=== PATIENT | female | born 1980 | race Caucasian/White ===

== ENCOUNTER 2023-05-25 15:13 | Emergency (ER) | payer BC, SELFPAY ==
[2023-05-25 15:16] VITALS: BP 127/85; PULSE 84; RESP 20; TEMP 36.7; O2SAT 99; BMI 32.2
--- NOTE | 2023-05-25 15:29 | ED.BACK1 ---
HPI - Back Pain/Injury General Chief Complaint: Back Pain/Injury Stated Complaint: BACK PAIN Time Seen by Provider: 05/25/23 15:14 Source: patient Mode of arrival: walk-in Limitations: no limitations History of Present Illness HPI Narrative: patient is a 42-year-old female presents to the emergency department for the evaluation of mid to low back pain for the last five days. She states she has a history of intermittent similar back pain over the last twenty years. She states five years ago she had injections in her spine, she saw a specialist at that time. She has had previous imaging of her back. She did not have any specific major trauma to cause chronic back pain. She states in the last five days she has just noticed an increase in pain from the mid to low back and paraspinal area of the right thoracic spine. She denies urinary symptoms, incontinence. She has no radicular pain to the legs or paresthesias. She states she had to call off work which prompted her to come to the emergency department. She drove herself to the Emergency Room. Related Data Previous Rx's Medication Instructions Recorded ketorolac 10 mg tablet 10 mg PO TID PRN pain #10 tabs 05/25/23 methocarbamol 750 mg tablet 750 mg PO TID PRN pain #20 tabs 05/25/23 Allergies Allergy/AdvReac Type Severity Reaction Status Date / Time codeine AdvReac Severe Nausea Verified 05/25/23 15:15 Review of Systems ROS Constitutional Denies: fever or chills Ears, nose, mouth, and throat Denies: neck pain Cardiovascular Denies: chest pain Respiratory Denies: shortness of breath Gastrointestinal Denies: abdominal pain, nausea or vomiting Genitourinary Denies: painful urination or urinary incontinence Musculoskeletal Reports: back pain; Denies: neck pain Integumentary/Breast Denies: rash Neurological Denies: numbness in extremities or weakness in extremities Exam Narrative Exam Narrative: Gen.: Awake, alert, in no distress Head: Normocephalic, atraumatic ENT: Moist mucous membranes Respiratory: No respiratory distress Extremities: Moves extremities equally, normal dorsiflexion and plantarflexion of the lower extremities. Normal hip flexion bilaterally. No decrease in sensation to the medial thighs Back: diffuse mild tenderness of the inferior thoracic and superior lumbar spine and paraspinal muscles to the right, no bony point tenderness or obvious deformity Psych: Normal mood and affect Neuro: No focal neuro deficit Skin: Warm, dry, intact Constitutional Vital Signs, click to edit/add: Last Vital Signs Temp 98.1 F 05/25/23 15:16 Pulse 84 05/25/23 15:16 Resp 20 05/25/23 15:16 BP 127/85 H 05/25/23 15:16 Pulse Ox 99 05/25/23 15:16 O2 Del Method Room Air 05/25/23 15:16 Course Vital Signs Vital signs: Vital Signs Temperature 98.1 F 05/25/23 15:16 Pulse Rate 84 05/25/23 15:16 Respiratory Rate 20 05/25/23 15:16 Blood Pressure 127/85 H 05/25/23 15:16 Pulse Oximetry 99 05/25/23 15:16 Oxygen Delivery Method Room Air 05/25/23 15:16 Temperature 98.1 F 05/25/23 15:16 Pulse Rate 84 05/25/23 15:16 Respiratory Rate 20 05/25/23 15:16 Blood Pressure 127/85 H 05/25/23 15:16 Pulse Oximetry 99 05/25/23 15:16 Oxygen Delivery Method Room Air 05/25/23 15:16 MDM - Back Pain/Injury MDM Narrative Medical decision making narrative: no indication for imaging as the patient has.had any specific mechanism of injury or trauma. She has no focal neuro deficits or radicular symptoms. She is treated for pain with Toradol in the Emergency Room as she drove to the emergency department herself. She is not concerned for . She is discharged home with a work note and NSAIDs, muscle relaxants. Rest, ice, gentle stretching. Follow-up PCP and return to the Emergency Room if symptoms change or worsen Medical Records Attestation: I reviewed the patient's medical records. Discharge Plan Discharge Chief Complaint: Back Pain/Injury Clinical Impression: Acute exacerbation of chronic low back pain Patient Disposition: Home, Self-Care Time of Disposition Decision: 15:25 Condition: Good Prescriptions / Home Meds: New ketorolac 10 mg tablet 10 mg PO TID PRN (Reason: pain) Qty: 10 0RF methocarbamol 750 mg tablet 750 mg PO TID PRN (Reason: pain) Qty: 20 0RF Instructions: Back Pain (ED) Stand Alone Forms: Portal Instructions Referrals: Physician,Non-Staff, [Primary Care Provider] - 1 week
[2023-05-25] MEDS: KETOROLAC TROMETHAMINE 60 MG/2 ML VIAL IM (15:30)
[2023-05-25 15:40] VITALS: BP 131/79; PULSE 72; RESP 16; O2SAT 96
== END 2023-05-25 15:41 | disposition home or self-care (01) ==
PROVIDERS: Emergency Provider Emergency Medicine
DX: M54.50 Low back pain, unspecified (principal); G89.29 Other chronic pain
CPT/HCPCS: 96372; 99284

== ENCOUNTER 2024-02-11 04:20 | Emergency (ER) | payer BC, SELFPAY ==
[2024-02-11 04:24] VITALS: BP 129/91; PULSE 95; RESP 18; TEMP 36.5; O2SAT 96; BMI 39.5
--- NOTE | 2024-02-11 04:37 | ED.GENADUL1 ---
HPI - General Adult General Chief complaint: Abdominal Pain Stated complaint: ABD PAIN vomiting Time Seen by Provider: 02/11/24 04:22 Source: patient Mode of arrival: walk-in Limitations: no limitations History of Present Illness HPI narrative: 43-year-old female presents for a 1 week history of nausea vomiting and diarrhea. She has had the symptoms for a week. She was at another hospital about a week ago and she had blood test done and was ultimately discharged home on Zofran. She ran out of the Zofran. No fever or hematemesis. Related Data Previous Rx's ?Medication ?Instructions ?Recorded ketorolac 10 mg tablet 10 mg PO TID PRN pain #10 tabs 05/25/23 methocarbamol 750 mg tablet 750 mg PO TID PRN pain #20 tabs 05/25/23 cephalexin 500 mg capsule 500 mg PO TID 7 days #21 caps 02/11/24 ondansetron 4 mg disintegrating 4 mg PO Q6H PRN nausea and 02/11/24 tablet vomiting #20 tabs Allergies Allergy/AdvReac Type Severity Reaction Status Date / Time codeine AdvReac Severe Nausea Verified 02/11/24 04:24 Review of Systems ROS Narrative A ten point review of systems is negative except as noted above. Exam Narrative Exam Narrative: Nurses note and vital signs reviewed and patient is not hypoxic. General: The patient appears well and in no apparent distress. Patient is resting comfortably on cart. Skin: Warm, dry, no pallor noted. There is no rash noted. Head: Normocephalic, atraumatic Eye: Normal conjunctiva, no drainage Ears, Nose, Mouth, and Throat: oral mucosa is moist. Nares patent. Cardiovascular: Regular Rate and Rhythm Respiratory: Patient is in no distress, no accessory muscle use, lungs are clear to auscultation, no wheezing, rales or rhonchi Back: non-tender GI: Soft and nondistended. Mild diffuse tenderness. Musculoskeletal: The patient has no evidence of calf tenderness, no pitting edema, symmetrical pulses noted bilaterally Neurological: A&O, normal speech Psychiatric: Cooperative Constitutional Vital Signs, click to edit/add: Last Vital Signs Temp 97.7 F 02/11/24 04:24 Pulse 95 H 02/11/24 04:24 Resp 18 02/11/24 04:24 BP 129/91 02/11/24 04:24 Pulse Ox 96 02/11/24 04:24 O2 Del Method Room Air 02/11/24 04:24 Course Vital Signs Vital signs: Vital Signs Temperature 97.7 F 02/11/24 04:24 Pulse Rate 95 H 02/11/24 04:24 Respiratory Rate 18 02/11/24 04:24 Blood Pressure 129/91 02/11/24 04:24 Pulse Oximetry 96 02/11/24 04:24 Oxygen Delivery Method Room Air 02/11/24 04:24 Temperature 97.7 F 02/11/24 04:24 Pulse Rate 95 H 02/11/24 04:24 Respiratory Rate 18 02/11/24 04:24 Blood Pressure 129/91 02/11/24 04:24 Pulse Oximetry 96 02/11/24 04:24 Oxygen Delivery Method Room Air 02/11/24 04:24 Medical Decision Making MDM Narrative Medical decision making narrative: Workup in the terms of her blood test is negative but urinalysis suggest possible UTI. She will be placed on Keflex and was prescribed Zofran. I do not have any clinical concern at this point of acute intra-abdominal process. Treatment diagnosis and follow-up were discussed with the patient. Differential Diagnosis Differential Diagnosis: Gastroenteritis, dehydration, UTI Lab Data Lab results reviewed: Yes I reviewed the patient's lab results Labs: Lab Results 02/11/24 02/11/24 Range/Units 04:29 05:10 WBC 5.7 (4.0-11.0) 10^3/uL RBC 4.63 (4.20-5.40) 10^6/uL Hgb 11.7 L (12.0-16.0) g/dL Hct 38.0 (36.0-48.0) % MCV 82.1 (81.0-99.0) fL MCH 25.3 L (26.7-34.0) pg MCHC 30.8 (29.9-35.2) g/dL RDW 17.8 H (11.0-15.0) % Plt Count 383 (150-450) 10^3/uL MPV 9.7 (9.5-13.5) fL Neut % (Auto) 43.0 (43.0-75.0) % Lymph % (Auto) 38.0 (20.5-60.0) % [place] % (Auto) 10.6 (1.7-12.0) % Eos % (Auto) 7.1 H (0.9-7.0) % Baso % (Auto) 0.9 (0.2-2.0) % Neut # (Auto) 2.4 (1.4-6.5) 10^3/uL Lymph # (Auto) 2.2 (1.2-3.8) 10^3/uL [place] # (Auto) 0.6 (0.3-0.8) 10^3/uL Eos # (Auto) 0.4 (0.0-0.7) 10^3/uL Baso # (Auto) 0.1 (0.0-0.1) 10^3/uL Abs Immat Gran (auto) 0.02 (0.00-0.03) 10^3/uL Imm/Tot Granulo (auto) 0.4 (0.0-0.5) % Sodium 139 (136-145) mmol/L Potassium 4.2 (3.5-5.1) mmol/L Chloride 106 (98-107) mmol/L Carbon Dioxide 26.3 (21.0-32.0) mmol/L Anion Gap 10.9 BUN 12.0 (7.0-18.0) mg/dL Creatinine 0.76 (0.55-1.02) mg/dL Est GFR ( Amer) >60 (>=60) Est GFR (Non-Af Amer) >60 (>=60) BUN/Creatinine Ratio 15.8 Glucose 100 (74-106) mg/dL Calcium 9.0 (8.5-10.1) mg/dL Total Bilirubin 1.0 (0.2-1.0) mg/dL Direct Bilirubin 0.2 (0.0-0.2) mg/dL AST 13 L (15-37) U/L ALT 30 (14-59) U/L Alkaline Phosphatase 52 (46-116) U/L Total Protein 7.1 (6.4-8.2) g/dL Albumin 3.7 (3.4-5.0) g/dL Globulin 3.4 g/dL Albumin/Globulin Ratio 1.1 Amylase 34 (25-115) U/L Lipase 34.0 (16.0-77.0) U/L Urine Color Lt. yellow (YELLOW) Urine Clarity Clear (CLEAR) Urine pH 6.0 (5.0-9.0) Ur Specific Emma 1.020 (1.005-1.025) Urine Protein Negative (NEG/TRACE) mg/dL Urine Glucose (UA) Negative (NEGATIVE) mg/dL Urine Ketones Negative (NEGATIVE) mg/dL Urine Occult Blood Moderate A (NEGATIVE) Urine Nitrite Negative (NEGATIVE) Urine Bilirubin Negative (NEGATIVE) Urine Urobilinogen 4.0 A (0.2-1.0) EU/dL Ur Leukocyte Esterase Moderate A (NEGATIVE) Urine RBC 2-5 A (0-2) #/HPF Urine WBC 5-10 A (NONE SEEN) #/HPF Ur Squamous Epith Cells Many A (NONE/RARE) #/LPF Urine Crystals None seen (None Seen) #/HPF Urine Bacteria Moderate A (NONE SEEN) #/HPF Urine Casts None seen (NONE SEEN) #/LPF Urine Mucus Small A (NONE SEEN) Ur Culture Indicated? Yes Discharge Plan Discharge Stand Alone Forms: Portal Instructions Chief Complaint: Abdominal Pain Clinical Impression: Nausea, vomiting, and diarrhea, Urinary tract infection Patient Disposition: Home, Self-Care Time of Disposition Decision: 05:39 Condition: Good Mode of Transportation: Private Vehicle Prescriptions / Home Meds: New cephalexin 500 mg capsule 500 mg PO TID 7 Days Qty: 21 0RF ondansetron 4 mg tablet,disintegrating 4 mg PO Q6H PRN (Reason: nausea and vomiting) Qty: 20 0RF No Action ketorolac 10 mg tablet 10 mg PO TID PRN (Reason: pain) Qty: 10 0RF methocarbamol 750 mg tablet 750 mg PO TID PRN (Reason: pain) Qty: 20 0RF Print Language: Divehi Instructions: Urinary Tract Infection in Women (ED), Acute Nausea and Vomiting (ED), Acute Diarrhea (ED) Referrals: Physician,Non-Staff, MD [Primary Care Provider] - 1 week
[2024-02-11 04:44] LABS: Basophils Absolute Auto 0.1 10^3/uL (0.0-0.1); Basophils Percent Auto 0.9 % (0.2-2.0); Eosinophils Absolute Auto 0.4 10^3/uL (0.0-0.7); Eosinophils Percent Auto 7.1 % (0.9-7.0); Hemoglobin 11.7 g/dL (12.0-16.0); Immature Granulocytes Abs Auto 0.02 10^3/uL (0.00-0.03); Immature Granulocytes Pct Auto 0.4 % (0.0-0.5); Lymphocytes Absolute Auto 2.2 10^3/uL (1.2-3.8); Mean Corpuscular HGB Conc 30.8 g/dL (29.9-35.2); Mean Corpuscular Hemoglobin 25.3 pg (26.7-34.0); Mean Corpuscular Volume 82.1 fL (81.0-99.0); Mean Platelet Volume 9.7 fL (9.5-13.5); Monocytes Absolute Auto 0.6 10^3/uL (0.3-0.8); Monocytes Percent Auto 10.6 % (1.7-12.0); Neutrophils Absolute Auto 2.4 10^3/uL (1.4-6.5); Platelet Count 383 10^3/uL (150-450); Red Blood Count 4.63 10^6/uL (4.20-5.40); Red Cell Distribution Width 17.8 % (11.0-15.0); White Blood Count 5.7 10^3/uL (4.0-11.0)
[2024-02-11] MEDS: ONDANSETRON PF 4 MG/2 ML VIAL IV (04:51)
[2024-02-11] MEDS: 0.9 % SODIUM CHLORIDE 1,000 ML 1000 ML IV (04:51)
[2024-02-11 04:54] LABS: Anion Gap 10.9; BUN Creatinine Ratio 15.8; Carbon Dioxide 26.3 mmol/L (21.0-32.0); Chloride 106 mmol/L (98-107); Estimated GFR (African America >60 (>=60); Estimated GFR (Non-African Ame >60 (>=60); Glucose 100 mg/dL (74-106); Potassium 4.2 mmol/L (3.5-5.1); Sodium 139 mmol/L (136-145)
[2024-02-11 05:00] LABS: Alanine Aminotransferase 30 U/L (14-59); Albumin Globulin Ratio 1.1; Albumin Level 3.7 g/dL (3.4-5.0); Alkaline Phosphatase 52 U/L (46-116); Amylase 34 U/L (25-115); Aspartate Amino Transferase 13 U/L (15-37); Bilirubin Direct 0.2 mg/dL (0.0-0.2); Globulin 3.4 g/dL; Total Protein 7.1 g/dL (6.4-8.2)
[2024-02-11 05:16] LABS: Bilirubin Urine NEGATIVE (NEGATIVE); Blood Urine MODERATE (NEGATIVE); Clarity Urine CLEAR (CLEAR); Color Urine LT. YELLOW (YELLOW); Glucose Urine UA NEGATIVE (NEGATIVE); Ketones Urine NEGATIVE (NEGATIVE); Leukocyte Esterase Urine MODERATE (NEGATIVE); Nitrite Urine NEGATIVE (NEGATIVE); Protein Urine NEGATIVE (NEG/TRACE)
[2024-02-11 05:25] LABS: Bacteria Urine MODERATE #/HPF (NONE SEEN); Cast Seen? NONE SEEN #/LPF (NONE SEEN); Crystals Seen? None Seen #/HPF (None Seen); Mucus Urine SMALL (NONE SEEN); Squamous Epithelial Cell Urine MANY #/LPF (NONE/RARE); Urine Culture Indicated YES
[2024-02-11 05:45] VITALS: BP 125/85; PULSE 80; RESP 18; O2SAT 97
== END 2024-02-11 05:45 | disposition home or self-care (01) ==
PROVIDERS: Emergency Provider Emergency Medicine
DX: R11.2 Nausea with vomiting, unspecified (principal); R19.7 Diarrhea, unspecified; N39.0 Urinary tract infection, site not specified
CPT/HCPCS: 36415; 80048; 80076; 81001; 82150; 83690; 85025; 87086; 96361; 96374; 99284

== ENCOUNTER 2024-11-17 22:48 | Emergency (ER) | payer BC, SELFPAY ==
[2024-11-17] VITALS (7 sets, daily range): BP systolic 112–145; BP diastolic 68–85; PULSE 811; TEMP 36.8; O2SAT 95–98; BMI 34.1
--- NOTE | 2024-11-17 23:15 | PC.NURSE ---
this patient complains of a cough x 2 months and right rib pain x 7 days. this patient has seen the urgent care x 2 and was given inhaler and cough medication for this cough, but not getting any better. this patient able to talk full sentences and no audible or visible distress. this patient voices no other complaints at this time
[2024-11-18] VITALS (8 sets, daily range): BP systolic 110–134; BP diastolic 58–95; PULSE 72–79; TEMP 37.1; O2SAT 95–99
--- NOTE | 2024-11-18 00:01 | ECG_ITS ---
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
--- NOTE | 2024-11-18 00:01 | CT_ITS ---
[address] [address] Patient Name: IVY TRACEY MRN: [id number] date: 1980 Sex: F Assigned Patient Location: ER Current Patient Location: Accession/Order Number: [id number] Exam Date: 11/18/2024 01:00 Report Date: 11/18/2024 01:29 At the request of: KIMBERLY ANDRADE Procedure: CT chest wo con EXAMINATION: CT chest wo con HISTORY: rib pain, chronic cough ; right rib pain for 7 days. COMPARISON: No relevant comparison available. TECHNIQUE: Axial, Coronal, and Sagittal images were created without the administration of IV contrast material. Dose reduction techniques were achieved by using automated exposure control and/or adjustment of mA and/or kV according to patient size and/or use of iterative reconstruction technique. FINDINGS: LUNGS: Trace amount of atelectasis within posterior lung bases. PLEURA: No mass, effusion, or pneumothorax. VASCULATURE: No abnormality. SHARIF: No mass or pathologic adenopathy. MEDIASTINUM: No mass or pathologic adenopathy. CARDIAC: No enlargement, pericardial thickening, or pericardial effusion. Coronary Artery calcifications: AORTA: No aneurysm or dissection. CHEST WALL: No mass or axillary adenopathy BONES: No bone lesion or fracture. LIMITED ABDOMEN: No suspicious findings. Limited images of the upper abdomen. OTHER: Negative. CT/CT chest wo con IMPRESSION: 1. Trace amount of atelectasis versus infiltrates within posterior lung bases; atelectasis is favored. 2. No appreciable rib abnormality or suspicious findings to account for patient's symptoms. Electronically authenticated by: ANISH FLETCHER Date: 11/18/2024 01:29
[2024-11-18] MEDS: KETOROLAC TROMETHAMINE 30 MG/ML VIAL IM (00:20)
[2024-11-18] MEDS: ORPHENADRINE 60 MG/ 2 ML VIAL IM (00:20)
--- NOTE | 2024-11-18 00:29 | PC.NURSE ---
this patient has been updated of her plan of care; 12 lead EKG, chest ct and medication. this patient voices no concerns and shows no signs of distress
--- NOTE | 2024-11-18 00:59 | ED_ITS ---
HPI HPI - General Adult General Chief complaint: Upper Respiratory Infection Stated complaint: DIFF BREATHING, COUGH, SIDE PAIN Time Seen by Provider: 11/17/24 23:33 Source: patient Mode of arrival: walk-in Limitations: no limitations History of Present Illness HPI narrative: 44-year-old female to the emergency department chief complaint of cough. Is been ongoing for almost 2 months. She has pain in her right sided ribs. The cough is productive. She denies any hemoptysis. She has been seen at the urgent care twice for this. She has had 2 chest x-rays that showed spots but no other findings. She continues to have cough and pain. She denies any fever, sweats, chills. She has completed a course of steroids, breathing treatments, antibiotics but has not had any relief. Related Data Home Medications ?Medication ?Instructions ?Recorded ?Confirmed albuterol sulfate 90 mcg/actuation inhalation 11/17/24 aerosol inhaler Previous Rx's ?Medication ?Instructions ?Recorded cyclobenzaprine 10 mg tablet 10 mg PO BID PRN muscle spasm #10 11/18/24 tabs levofloxacin 750 mg tablet 750 mg PO DAILY 5 days #5 tabs 11/18/24 naproxen 500 mg tablet 500 mg PO BID PRN pain #14 tabs 11/18/24 prednisone 20 mg tablet 60 mg (3 x 20 mg) PO DAILY 5 days 11/18/24 #15 tabs Allergies Allergy/AdvReac Type Severity Reaction Status Date / Time codeine AdvReac Severe Nausea Verified 11/17/24 23:02 Opioid HPI Opioid Management Most Recent Opioid Data: Last Pain Scale 4 11/18/24 01:09 11/18/24 Last ED Pain Assessment 11/18/24 01:09 Last MAR Pain Assessment 11/18/24 00:20 Review of Systems ROS Status of ROS 10 or more systems reviewed and unremark able except as noted in history and below [facility] Social History Little interest or pleasure in doing things: not at all Feeling down, depressed, or hopeless: not at all Exam Narrative Exam Narrative: VITALS: I have reviewed the triage vital signs. GENERAL: Well developed, well appearing adult in no acute distress. NEURO: Alert and oriented. Moves all extremities. Face is symmetric and expressive. EYES: PERRL. No scleral icterus or conjunctival injection. No discharge. HENT: Normocephalic, atraumatic. Hearing is grossly intact. Nares grossly patent and without discharge. Mucous membranes moist. NECK: No JVD. Patient moves neck without restriction. CARDIO: Rhythm regular. Normal rate. No murmur, rub, or gallop. Pulses equal bilaterally in the upper and lower extremity. No lower extremity edema. PULM: Trace wheezing. no conversational dyspnea. No splinting, stridor, or accessory muscle use. Right sided lateral rib tenderness. GI/: Abdomen is soft and non-tender. Normoactive bowel sounds. EXTREMITIES: Symmetric muscle bulk. No joint swelling. No clubbing, cyanosis, or deformity. SKIN: Warm and dry. Normal turgor. No rash or lesions appreciated. PSYCH: Mood, affect, and interaction is appropriate to the setting. Constitutional Vital Signs, click to edit/add: Last Vital Signs Temp 98.2 F 11/17/24 23:10 Pulse 75 11/18/24 01:07 Resp 18 11/18/24 01:07 BP 114/74 11/18/24 01:07 Pulse Ox 96 11/18/24 01:07 O2 Del Method Room Air 11/17/24 23:10 Course Vital Signs Vital signs: Vital Signs Pulse Oximetry 96 11/17/24 23:06 Temperature 98.2 F 11/17/24 23:10 Pulse Rate 75 11/18/24 01:07 Respiratory Rate 18 11/18/24 01:07 Blood Pressure 114/74 11/18/24 01:07 Pulse Oximetry 96 11/18/24 01:07 Oxygen Delivery Method Room Air 11/17/24 23:10 Medical Decision Making [facility] Narrative Medical decision making narrative: 44-year-old female to the emergency department with chief complaint of cough. Vital stable, the patient is afebrile. Cough has been refractory to usual therapy. Two abnormal chest x-rays in the outpatient setting. CT scan with bilateral lower infiltrate. No other acute findings. Will treat with Levaquin given her failed antibiotics. Higher dose prednisone. Naproxen and Flexeril for pain. Return precautions were discussed. She will follow-up with her PCP. All questions were answered. The patient was discharged home. Medical Records Medical records reviewed: Yes I reviewed the patient's medical records Lab Data Lab results reviewed: Yes I reviewed the patient's lab results Imaging Data CT scan - chest: Attestation: I have reviewed the pertinent imaging results. Radiologist's impression: ITS Impressions Chest CT 11/18/24 00:01 IMPRESSION: 1. Trace amount of atelectasis versus infiltrates within posterior lung bases; atelectasis is favored. 2. No appreciable rib abnormality or suspicious findings to account for patient's symptoms. Electronically authenticated by: ANISH FLETCHER Date: 11/18/2024 01:29 ECG Data Attestation: I personally reviewed and interpreted this ECG as follows: (Normal sinus rhythm at a rate of 70. No STEMI. Normal QTc.) Discharge Plan Discharge Chief Complaint: Upper Respiratory Infection Clinical Impression: Pneumonia, Pleurisy Patient Disposition: Home, Self-Care Time of Disposition Decision: 01:47 Condition: Good Mode of Transportation: Private Vehicle Prescriptions / Home Meds: New cyclobenzaprine 10 mg tablet 10 mg PO BID PRN (Reason: muscle spasm) Qty: 10 0RF prednisone 20 mg tablet 60 mg PO DAILY 5 Days Qty: 15 0RF levofloxacin 750 mg tablet 750 mg PO DAILY 5 Days Qty: 5 0RF naproxen 500 mg tablet 500 mg PO BID PRN (Reason: pain) Qty: 14 0RF No Action albuterol sulfate 90 mcg/actuation HFA aerosol inhaler INHALATION Print Language: [place]azight Instructions: Pleurisy (ED), Community Acquired Pneumonia (ED) Additional Instructions: Call the office of your primary care doctor to arrange for follow-up within the above-stated timeframe. Your ED visit was focused on your acute issue and does not replace primary care. You should review your labs, imaging, and diagnoses from this ED visit with your primary care physician. There may be non-emergent/ incidental findings that need further evaluation. You should review your vital signs including blood pressure with your PCP. If you were prescribed medications you should discuss possible side-effects and drug interactions with your pharmacist. Call 911 or go to the nearest Emergency Department if you develop any new or worsening symptoms. Seek immediate medical attention if you develop: worsening chest pain, new chest pain, nausea, vomiting, weakness, numbness, tingling, excessive sweating, shortness of breath, difficulty breathing, loss of motion in your arms or legs, or any new or worsening symptoms. Referrals: Physician,Non-Staff, [Primary Care Provider] - 1 week
--- NOTE | 2024-11-18 01:09 | PC.NURSE ---
this patient just back from ct dept, and this patient voices her pain is down to 4/10 from 8/10. this patient aware that waiting on ct results to come back. this patient voices no concerns and shows no sign of distress
--- NOTE | 2024-11-18 01:56 | PC.NURSE ---
i gave this patient verbal and paper discharge orders along with 4 e-scripts and this patient voices yes to understanding these. at tome of discharge this patient voices no concerns and shows no signs of distress
== END 2024-11-18 01:58 | disposition home or self-care (01) ==
PROVIDERS: Emergency Provider Student in an Organized Health Care Education/Training Program
DX: J18.9 Pneumonia, unspecified organism (principal); R09.1 Pleurisy
CPT/HCPCS: 71250; 93005; 96372; 99284; J1885; J2360

== ENCOUNTER 2024-12-08 07:40 | Emergency (ER) | payer BC, SELFPAY ==
[2024-12-08 07:46] VITALS: BP 138/100; PULSE 99; TEMP 37; O2SAT 98; BMI 25.5
--- NOTE | 2024-12-08 07:51 | ECG_ITS ---
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
--- OUTSIDE RECORDS SUMMARY | 2024-12-08 07:57 | XMS_ITS | CCD ---
Author Organization [facility] Care Team Providers Care Installers Mechanical Name Role Phone HOUSE, DR KANG Admitting Unavailable HOUSE, DR KANG Attending Unavailable HOUSE, DR KANG Primary Care Unavailable HOUSE, DR KANG Consulting Unavailable Elizabeth Andino Unavailable Mariely Hitchcock Unavailable Ricky PAN GREASER-INVESTMENT FUND MANAGER, Meagan A Primary Care Provi fransico GARRISON TEMPLE Attending Unavailable RICKY, MEAGAN A Referring Unavailable RICKY, MEAGAN A Primary Care Unavailable EDMOND SMITH Attending Unavailable GARRISON TEMPLE Referring Unavailable RICKY, MEAGAN A Primary Care Unavailable RICKY, MEAGAN A Attending Unavailable RICKY, MEAGAN A Primary Care Unavailable RICKY, MEAGAN A Referring Unavailable RICKY, MEAGAN A Primary Care Unavailable RICKY, MEAGAN A Primary Care Unavailable MELINDA CARBAJAL Attending Unavailable MELINDA CARBAJAL Attending Unavailable MELINDA CARBAJAL Referring Unavailable RICKY, MEAGAN A Primary Care Unavailable RICKY, MEAGAN A Primary Care Unavailable DARCY FORBES Attending Unavailable RICKY, MEAGAN A Primary Care Unavailable MAYA MARTELL Attending Unavailable RICKY, MEAGAN A Referring Unavailable RICKY, MEAGAN A Primary Care Unavailable RICKY, MEAGAN A Referring Unavailable RICKY, MEAGAN A Primary Care Unavailable BRENNEN BECKFORD Admitting Unavailable BRENNEN BECKFORD Attending Unavailable PEARL FAJARDO Referring Unavailable NO PCP, NO PCP Primary Care Unavailable BRENNEN BECKFORD Attending Unavailable BRENNEN BECKFORD Referring Unavailable NO PCP, NO PCP Primary Care Unavailable GARRISON TEMPLE Referring Unavailable RICKY, MEAGAN A Primary Care Unavailable GARRISON TEMPLE Referring Unavailable RICKY, MEAGAN A Primary Care Unavailable JAVY LOMELI Admitting Unavailable JAVY LOMELI Attending Unavailable JAVY LOMELI Referring Unavailable RICKY, MEAGAN A Primary Care Unavailable MIKAELA IBARRA Attending Unavailable RICKY, MEAGAN A Primary Care Unavailable JAVY LOMELI Attending Unavailable JAVY LOMELI Referring Unavailable RICKY, MEAGAN A Primary Care Unavailable REX CONTRERAS Attending Unavailable NO PCP, NO PCP Primary Care Unavailable BRENNEN BECKFORD E Attending Unavailable BECKFORD, BRENNEN E Referring Unavailable NO PCP, NO PCP Primary Care Unavailable BECKFORD, BRENNEN E Admitting Unavailable BECKFORD, BRENNEN E Attending Unavailable PEARL FAJARDO Referring Unavailable NO PCP, NO PCP Primary Care Unavailable DAVIS HAYES Attending Unavailable NO PCP, NO PCP Primary Care Unavailable RICKY, MEAGAN A Referring Unavailable RICKY, MEAGAN A Primary Care Unavailable RICKY, MEAGAN A Referring Unavailable RICKY, MEAGAN A Primary Care Unavailable RICKY, MEAGAN A Referring Unavailable RICKY, MEAGAN A Primary Care Unavailable DENAE ALBERTO Attending Unavailable BECKFORD, BRENNEN E Referring Unavailable RICKY, MEAGAN A Primary Care Unavailable NO FAMILY, PHYSICIAN Primary Care Provider Unava ilable Alea Hurd APRN Attending Provider NO FAMILY, PHYSICIAN Primary Care Unavailable Augustina Huang Attending Unavailable Augustina Huang Admitting Unavailable Alea Hurd Attending Unavailluz elena e Alea Hurd Admitting Unavailabl e NO FAMILY, PHYSICIAN Primary Care Unavailable Allergies Allergy Classification Reported Allergen(s) Allergy Type Date of Onset Reaction(s) Facility (1 source) Codeine Drug Allergy [address] [facility] Repository (2 sources) Codeine Drug Allergy stomach upset [employer] Other (8 sources) Acetaminophen / Codeine; Translations: [ACETAMINOPHEN-CO DEINE] Drug Allergy 7 [facility] (1 source) Codeine Drug Allergy 4 [facility] Repository Medications Current Medications Medication Drug Class(es) Dates Sig (Normalized) Sig (Original) acetaminophen 325 mg oral tablet (6 sources) take 3 tablets by mouth every six hours as needed for pain acetaminophen (TYLENOL) 325 mg tablet Indications: back pain Take 3 tablets (975 mg total) by mouth every 6 (six) hours as needed for pain Indications: backache. Active amoxicillin 875 mg oral tablet (1 source) Penicillin-class Antibacterial Start: 06-25-2022 take 1 tablet by mouth every twelve hours Amoxicillin 875 MG 1 tablet Orally every 12 hrs for 7 days Jun, Active Brompheniramine-Pseudo eph-Dm (Bromfed Dm) 2-30-10 mg/5 mL syrup (1 source) Start: 10-03-2024 take 1 mL by mouth every six hours as needed Brompheniramine-Ps eudoeph-Dm (Bromfed Dm) 2-30-10 mg/5 mL syrup Active 10 ML PO Every 6 hours as needed for cold symptoms 100 October 03, 2024 12:00am cephalexin 500 mg oral capsule (1 source) Cephalosporin Antibacterial Start: 02-11-2024 take 1 capsule by mouth three times daily CEPHalexin (KEFLEX) 500 mg capsule Take 1 capsule (500 mg total) by mouth 3 (three) times a day. 0 02/11/2024 Active cetirizine hydrochloride 10 mg oral tablet (2 sources) Histamine-1 Receptor Antagonist Start: 02-17-2024 take 1 tablet by mouth in the morning cetirizine (ZyrTEC) 10 mg tablet Take 1 tablet (10 mg total) by mouth in the morning. 30 tablet 2 02/17/2024 Active dextromethorphan hydrobromide 15 mg / guaiFENesin 400 mg / pseudoephedrine hydrochloride 60 mg oral tablet (1 source) alpha-Adrenergic Agonist, Uncompetitive V-tsyjki-R-aspart[place] te Receptor Antagonist, Sigma-1 Agonist Start: 01-14-2024 take 4 tablets by mouth every twenty-four hours as needed Pseudoephedrine-Dm -Guaifenesin (Capmist Dm) 60-15-400 mg tablet Active 1 TAB PO EVERY 4-6 HOURS as needed for cold symptoms January 14, 2024 12:00am do not exceed 4 doses per 24 hrs famotidine 20 mg oral tablet (3 sources) Histamine-2 Receptor Antagonist Start: 03-22-2024 famotidine (PEPCID) 20 mg tablet 03/22/2024 Active Start: 02-03-2024 End: 03-18-2024 take 1 tablet by mouth in the morning, then take 1 tablet by mouth at bedtime famotidine (PEPCID) 20 mg tablet Take 1 tablet (20 mg total) by mouth in the morning and 1 tablet (20 mg total) before bedtime. Do all this for 30 days. 60 tablet 1 02/17/2024 03/18/2024 Active fluticasone propionate 0.05 mg/actuat metered dose nasal spray (3 sources) Corticosteroid Start: 02-17-2024 take 2 spray(s) nasal route in the morning fluticasone propionate (FLONASE) 50 mcg/actuation nasal spray Administer 2 sprays into each nostril in the morning. 16 mL 02/17/2024 Active Start: 01-14-2024 take 1 spray(s) nasa l route once daily Fluticasone Propionate 50 mcg/actuation spray,suspension Active 2 SPRAY INTRANASAL Daily January 14, 2024 12:00am administer into each nostril 12 hr guaiFENesin 600 mg extended release oral tablet (1 source) Start: 02-17-2024 End: 02-24-2024 take 1 tablet by mouth once guaiFENesin (MUCINEX) 600 mg tablet extended release 12hr Take 1 tablet (600 mg total) by mouth every 12 (twelve) hours for 7 days. 14 tablet 0 02/17/2024 02/24/2024 Active ibuprofen 800 mg oral tablet (2 sources) Nonsteroidal Anti-inflammatory Drug Start: 01-19-2024 take 1 tablet by mouth every eight hours as needed for pain ibuprofen (MOTRIN) 800 mg tablet Take 1 tablet (800 mg total) by mouth every 8 (eight) hours as needed for pain. 30 tablet 0 01/19/2024 Active levonorgestrel 0.393655 mg/hr intrauterine system (6 sources) Progestin, Progestin-containi ng Intrauterine Device levonorgestreL (MIRENA) 21 mcg/24 hours (8 yrs) 52 mg IUD 1 each by intrauterine route once. Active naproxen 500 mg oral tablet (5 sources) Nonsteroidal Anti-inflammatory Drug Start: 08-12-2023 take 1 tablet by mouth in the morning, then take 1 tablet by mouth at mealtime naproxen (NAPROSYN) 500 mg tablet Take 1 tablet (500 mg total) by mouth in the morning and 1 tablet (500 mg total) in the evening. Take with meals. 60 tablet 1 08/12/2023 Active omeprazole 40 mg delayed release oral capsule (1 source) Proton Pump Inhibitor Start: 03-10-2024 take 1 capsule by mouth in the morning omeprazole (PriLOSEC) 40 mg capsule Indications: Black tarry stools , History of stomach ulcers Take 1 capsule (40 mg total) by mouth in the morning. 30 capsule 1 03/10/2024 Active ondansetron 4 mg disintegrating oral tablet (1 source) Serotonin-3 Receptor Antagonist Start: 02-03-2024 take 1 tablet by mouth every eight hours as needed for nausea ondansetron ODT (ZOFRAN ODT) 4 mg disintegrating tablet Dissolve 1 tablet (4 mg total) on tongue every 8 (eight) hours as needed for nausea for up to 10 doses. 10 tablet 0 02/03/2024 Active predniSONE 20 mg oral tablet (2 sources) Start: 10-03-2024 take 2 tablets by mouth once daily Prednisone 20 mg tablet Active 40 MG PO Daily 08 21October 03, 2024 12:00am Start: 01-11-2024 take 1 tablet by autumn twice daily Prednisone 20 mg tablet Active 20 MG PO Twice daily 08 21January 11, 2024 12:00am Completed/Discontinued Medications Medication Drug Class(es) Dates Sig (Normalized) Sig (Original) benzonatate 100 mg oral capsule (1 source) Non-narcotic Antitussive Start: 10-21-2023 End: 12-24-2023 take 1 capsule by mouth every eight hours benzonatate (TESSALON PERLES) 100 mg capsule Take 1 capsule (100 mg total) by mouth every 8 (eight) hours. 21 capsule 0 10/21/2023 12/24/2023 Discontinued dicyclomine hydrochloride 20 mg oral tablet (1 source) Anticholinergic Start: 02-03-2024 End: 02-17-2024 take 1 tablet by mouth twice daily as needed dicyclomine (BENTYL) 20 mg tablet Take 1 tablet (20 mg total) by mouth 2 (two) times a day as needed (abdominal). 20 tablet 0 02/03/2024 02/17/2024 Discontinued (Therapy completed) methocarbamol 750 mg oral tablet (1 source) Muscle Relaxant Start: 05-25-2023 End: 12-24-2023 take 1 tablet by mouth three times daily as needed methocarbamoL (ROBAXIN) 750 mg tablet Take 1 tablet (750 mg total) by mouth 3 (three) times a day as needed. 0 05/25/2023 12/24/2023 Discontinued multivitamin/iron/f olic acid (CENTRUM COMPLETE ORAL) (1 source) End: 12-24-2023 multivitamin/iron/ folic acid (CENTRUM COMPLETE ORAL) Take by mouth. 0 12/24/2023 Discontinued Triamcinolone (4 sources) Corticosteroid Start: 07-21-2018 KENALOG - 10 mg Jul, 40 mg Start: 05-21-2018 KENALOG - 10 m g May, 60 mg Problems Active Problems Problem Classification Problem Date Documented Da te Episodic/Chronic Abdominal pain (1 source) Left lower quadrant pain; Translations: [Left lower quadrant pain] 02-22-2024 Episodic Allergic reactions (6 sources) Allergic disorder; Translations: [Allergy, unspecified, initial encounter] 05-31-2021 Episodic Gastroduodenal ulcer (except hemorrhage) (2 sources) H/O: gastric ulcer; Translations: [Personal history of peptic ulcer disease] Onset: 02-17-2024 02-17-2024 Episodic Gastrointestinal hemorrhage (4 sources) Hematochezia; Translations: [Melena] Onset: 02-17-2024 02-17-2024 Episodic Nausea and vomiting (3 sources) Nausea; Translations: [Vomiting] Onset: 02-03-2024 Episodic Noninfectious gastroenteritis (1 source) Noninfective gastroenteritis and colitis, unspecified; Translations: [Noninfective gastroenteritis and colitis, unspecified] Onset: 02-03-2024 Episodic Nonmalignant breast conditions (2 sources) Mastodynia; Translations: [Mastodynia] Onset: 01-08-2024 Episodic Other complications of ; puerperium affecting management of mother (2 sources) Pain of breast; Translations: [Other disorders of breast associated with and the puerperium] 01-08-2024 Episodic Other complications of ; puerperium affecting management of mother (1 source) Other disorders of breast associated with and the puerperium; Translations: [Other disorders of breast associated with and the puerperium] Onset: 01-08-2024 Episodic Other connective tissue disease (1 source) Pain in lower limb Onset: 12-24-2023 Episodic Other lower respiratory disease (1 source) Shortness of breath; Translations: [Shortness of breath] Onset: 11-05-2024 Episodic Other lower respiratory disease (1 source) Wheezing; Translations: [Wheezing] Onset: 10-03-2024 Episodic Other non-traumatic joint disorders (1 source) Ankle pain Onset: 01-20-2024 Episodic Spondylosis; intervertebral disc disorders; other back problems (15 sources) Lumbosacral spondylosis without myelopathy; Translations: [Spondylosis without myelopathy or radiculopathy, lumbosacral region] Onset: 11-27-2017 10-29-2023 Chronic Spondylosis; intervertebral disc disorders; other back problems (20 sources) Disorder of sacrum; Translations: [Sacrococcygeal disorders, not elsewhere classified] Onset: 04-07-2017 04-07-2017 Episodic Sprains and strains (3 sources) Sprain of left ankle; Translations: [Sprain of unspecified ligament of left ankle, subsequent encounter] Onset: 01-19-2024 02-17-2024 Episodic Unclassified (3 sources) CONTACT W/AND (SUSP) EXPOS COVID-19; Translations: [CONTACT W/AND (SUSP) EXPOS COVID-19] Onset: 08-19-2021 Unclassified (1 source) Breast Problem Onset: 01-08-2024 Unclassified (1 source) Establish Care Onset: 12-24-2023 Unclassified (1 source) Esophagitis, unspecified without bleeding; Translations: [Esophagitis, unspecified without bleeding] Onset: 03-25-2024 Unclassified (2 sources) Ankle Injury Onset: 01-19-2024 Unclassified (1 source) Cough, unspecified; Translations: [Cough, unspecified] Onset: 11-05-2024 Past or Other Problems Problem Classification Problem Date Documented Date Episodic/Chronic Contraceptive and procreative management (6 sources) Intrauterine contraceptive device in situ; Translations: [Presence of (intrauterine) contraceptive device] Onset: 05-29-2023 05-29-2023 Episodic Mood disorders (6 sources) Mood disorders Onset: 12-24-2023 12-24-2023 Other connective tissue disease (7 sources) Pain of left thigh; Translations: [Pain in left thigh] Onset: 12-24-2023 12-24-2023 Episodic Other connective tissue disease (2 sources) Pain in left thigh; Translations: [Pain in left thigh] Onset: 12-24-2023 Episodic Other nervous system disorders (7 sources) Paresthesia of lower extremity; Translations: [Anesthesia of skin] Onset: 12-24-2023 12-24-2023 Episodic Other nervous system disorders (2 sources) Anesthesia of skin; Translations: [Anesthesia of skin] Onset: 12-24-2023 Episodic Other nervous system disorders (2 sources) Paresthesia of skin; Translations: [Paresthesia of skin] Onset: 12-24-2023 Episodic Other screening for suspected conditions (not mental disorders or infectious disease) (3 sources) Patient encounter status; Translations: [Encounter for screening for lipoid disorders] Onset: 12-24-2023 12-24-2023 Episodic Other upper respiratory infections (2 sources) Acute pharyngitis, unspecified; Translations: [Acute upper respiratory infection, unspecified] Onset: 06-19-2022 Resolved: 06-19-2022 Episodic Residual codes; unclassified (8 sources) Family history of breast cancer; Translations: [Family history of malignant neoplasm of breast] Onset: 04-30-2023 04-30-2023 Episodic Residual codes; unclassified (2 sources) Family history of malignant neoplasm of breast; Translations: [Family history of malignant neoplasm of breast] Onset: 04-30-2023 Episodic Unclassified (1 source) CONTACT W/AND (SUSP) EXPOS COVID-19; Translations: [CONTACT W/AND (SUSP) EXPOS COVID-19] Onset: 08-06-2021 Unclassified (6 sources) Onset: 04-30-2023 04-30-2023 Results Test Name Value Interpretation Reference Range Facility XR chest 2V*on 11-05-2024 XR chest 2V* [facility] Main [address] [address] XRay Report Signed Patient: Ivy Tracey MR#: [id number] : 1980 Acct:[id number] Age/Sex: 44 / F ADM Date: 11/05/24 Loc: XDUCLY Room: Type: [facility] CLI Attending Dr: Augustina Huang PAN GREASER Copies to: Augustina Huang APRN Ordering Provider: Augustina Huang APRN Date of Service: 11/05/24 XR/XR chest 2V*: R05.9 - Cough, unspecified Plain film chest 2 view HISTORY: Nonproductive cough COMPARISON: 10/03/2024 FINDINGS: SUPPORT DEVICES: None POSTSURGICAL CHANGES: None HEART: Within normal limits PULMONARY SHARIF: Within normal limits MEDIASTINUM: Unremarkable LUNGS AND PLEURA: No acute lung process, pleural effusion or pneumothorax identified. BONY STRUCTURES: Intact ADDITIONAL FINDINGS None XR/XR chest 2V* IMPRESSION: No acute process. Impression dictated by: Koby Domingo M.D.11/05/2024 10:13 AM Dictation Location: [place] [address] Transcribed By: [facility] 11/05/24 1013 Dictated By: Koby Domingo DO 11/05/24 1012 Signed By: 11/05/24 1013 Normal [facility] No Panel InformationOrdered By: Alea Hurd on 10-03-2024 Quick Strep (POC) [facility] X-ray reportOrdered By: Lilia Sherman on 10-03-2024 Study report [facility] [place] [address] XRay Report Signed Patient: Ivy Tracey MR#: [id number] : 1980 Acct:[id number] Age/Sex: 44 / F ADM Date: 4 Loc: XDUCLY Room: Type: [facility] CLI Attending Dr: Alea Hurd PAN GREASER Copies to: Alea Hurd APRN~ Ordering Provider: Alea Hurd APRN Date of Service: 10/03/24 XR/XR chest 2V*: R06.2 - Wheezing PA AND LATERAL CHEST: CLINICAL HISTORY: Nonproductive cough, wheezing and shortness of breath, greaterat night COMPARISON: None There is shallow inspiration. There is minimal basilar scarring or atelectasis on the left. There is no additional consolidation, effusion or pneumothorax. The cardiac, hilar and mediastinal silhouettes are within normal limits. Thereis no vascular congestion. The visualized bony thorax is intact. Tiny endplate spurs are present. XR/XR chest 2V* IMPRESSION: NO ACUTE CARDIOPULMONARY ABNORMALITY. Impression dictated by: Brea Sherman M.D.10/03/2024 2:26 PM Dictation Location: [facility] Transcribed By: KIM 10/03/24 1426 Dictated By: Brea Sherman MD 10/03/24 1402 Signed By: 10/03/24 142 [facility] Work Phone: XR chest 2V*on 10-03-2024 XR chest 2V* [facility] Main [place] [address] [place] [address] XRay Report Signed Patient: Ivy Tracey MR#: [id number] : 1980 Acct:[id number] Age/Sex: 44 / F ADM Date: 10/03/24 Loc: XDUCLY Room: Type: [facility] Attending Dr: lAea Hurd PAN GREASER Copies to: Alea Hurd APRN Ordering Provider: Alea Hurd APRN Date of Service: 10/03/24 XR/XR chest 2V*: R06.2 - Wheezing PA AND LATERAL CHEST: CLINICAL HISTORY: Nonproductive cough, wheezing and shortness of breath, greater at night COMPARISON: None There is shallow inspiration. There is minimal basilar scarring or atelectasis on the left. There is no additional consolidation, effusion or pneumothorax. The cardiac, hilar and mediastinal silhouettes are within normal limits. There is no vascular congestion. The visualized bony thorax is intact. Tiny endplate spurs are present. XR/XR chest 2V* IMPRESSION: NO ACUTE CARDIOPULMONARY ABNORMALITY. Impression dictated by: Brea Sherman M.D.10/03/2024 2:26 PM Dictation Location: [facility] Transcribed By: KIM 10/03/24 1426 Dictated By: Brea Sherman MD 10/03/24 1402 Signed By: 10/03/24 1426 Normal [facility] H PYLORI SCREENon 03-25-2024 H. pylori Org specific cx Ql (Delmy fld) Negative Normal NEG [facility] Comment on above: Performed By: #### C BCA, THYR, CMP, 54967-1, 2132-07 #### [facility] ([id number]) [address] [place] [address], [address] [place] [address] Surgical Pathologyon 024 Surgical Pathology Normal [facility] Comment on above: Result Comment: [facility] [employer] [facility] [address] [place] [address] Surgical Pathology Consultation Patient Name:IVY TRACEY:1980 (Age: 43)Gender:FTaken:4Reported:03/31/2024hysician(s):Javy Lomeli D.O. ([phone])Copy To: Rec. #:[id number]: #[id number] Final Pathologic Diagnosis 1. Gastric antrum, biopsy: Mild inactive gastritis with features suggestive of chemical gastritis. No mucosal ulcer, metaplasia or dysplasia identified. No Helicobacter pylori organisms seen on H&E stain. 2. Distal esophagus, biopsy: Active esophagitis with intraepithelial eosinophils (12 intraepithelial eosinophils per high-power field). No metaplasia or dysplasia identified. Report Electronically Signed Out nxk/03/31/2024Jama Painting MD Interpretation performed at [facility], [address] [place] [address], License number: [id number]. Clinical History Black stools, Part 1; Pre-pyloric. Gross Description 1. Received in formalin labeled, KYUNG, antrum are 3 zamarripa delicate soft tissue fragments, 0.1 to 0.3 cm in greatest dimension. The specimens are filtered and submitted in a single cassette. (1, ns, [id number], m7) TB 2. Received in formalin labeled, KYUNG, distal esophageal are 3 zamarripa delicate soft tissue fragments, 0.1-0.4 cm in greatest dimension. The specimens are filtered and submitted in a single cassette. (1, ns, [id number], m7) TB tgb/03/25/2024NSK Specimen(s) Received 1: Antrum 2: Distal esophageal biopsy Fee Codes(s): 1; 61756 2; 18857 MAMM DIAGNOSTIC BILATERAL W CADon 02-10-2024 MAMM DIAGNOSTIC BILATERAL W CAD MAMM DIAGNOSTIC BILATERAL W CAD EXAM: MAMM DIAGNOSTIC BILATERAL W CAD, US BREAST BILAT - LIMITED, 02/10/2024 12:11 PM CLINICAL INDICATIONS: Breast pain; Family history of breast cancer, COMPARISON: Mammogram 04/30/2023 TECHNIQUE: Bilateral digital tomosynthesis MLO and CC views of the breasts were obtained, with creation of synthetic 2D views. Computer aided detection was utilized. Targeted ultrasound in the area of pain, upper outer quadrants of both breasts performed. FINDINGS: There are scattered areas of fibroglandular density. In the area of pain, no mammographic or sonographic abnormality seen. There are no suspicious masses, calcifications, or areas of architectural distortions. IMPRESSION: No mammographic or targeted sonographic evidence of malignancy. BI-RADS: BI-RADS 1 - Negative Recommendation: Routine screening mammogram in 1 year Patient was given the results before leaving the department. 5 Finalized by Juan Carlos Carpenter MD on 02/10/2024 12:50 PM 1 b MAMM 1 YR Normal [facility] US BREAST BILAT - LIMITEDon 02-10-2024 US BREAST BILAT - LIMITED US BREAST BILAT - LIMITED EXAM: MAMM DIAGNOSTIC BILATERAL W CAD, US BREAST BILAT - LIMITED, 02/10/2024 12:11 PM CLINICAL INDICATIONS: Breast pain; Family history of breast cancer, COMPARISON: Mammogram 04/30/2023 TECHNIQUE: Bilateral digital tomosynthesis MLO and CC views of the breasts were obtained, with creation of synthetic 2D views. Computer aided detection was utilized. Targeted ultrasound in the area of pain, upper outer quadrants of both breasts performed. FINDINGS: There are scattered areas of fibroglandular density. In the area of pain, no mammographic or sonographic abnormality seen. There are no suspicious masses, calcifications, or areas of architectural distortions. IMPRESSION: No mammographic or targeted sonographic evidence of malignancy. BI-RADS: BI-RADS 1 - Negative Recommendation: Routine screening mammogram in 1 year Patient was given the results before leaving the department. 5 Finalized by Juan Carlos Carpenter MD on 02/10/2024 12:50 PM 1 b MAMM 1 YR Normal [facility] BASIC METABOLIC PANLon 02-02 Anion gap [Moles/Vol] 7 mmol/L Normal 5-15 [facility] Comment on above: Performed By: #### C BCA, THYR, CMP, 79009-1, 2132-07 #### [facility] ([id number]) [address], [address] [place] [address] Calcium [Mass/Vol] 8.3 mg/dL Low 8.5-10.5 [facility] Comment on above: Performed By: #### C BCA, THYR, CMP, , 2132-07 #### [facility] ([id number]) [address], [address] [place] [address] Chloride [Moles/Vol] 107 mmol/L Normal 98-109 [facility] Comment on above: Performed By: #### C BCA, THYR, CMP, , 2132-07 #### [facility] ([id number]) [address], [address] [place] [address] CO2 [Moles/Vol] 23 mmol/L Normal 22-32 [facility] Comment on above: Performed By: #### C BCA, THYR, CMP, 57520-9, 2132-07 #### [facility] ([id number]) [address], [address] [place] [address] Creatinine [Mass/Vol] 0.61 mg/dL Normal 0.40-1.00 [facility] Comment on above: Result Comment: METH OD TRACEABLE TO IDMS STANDARD Performed By: #### C BCA, THYR, CMP, , 2132-07 #### [facility] ([id number]) [address], [address] [place] [address] eGFR (CKD-EPI) NON-RACE DEPENDENT >90 Normal >59 [facility] Comment on above: Result Comment: Reported eGFR is based on the CKD-EPI 2020 equation that does not use a race coefficient. Performed By: #### C BCA, THYR, CMP, , 2132-07 #### [facility] ([id number]) [address], [address] [place] [address] Glucose [Mass/Vol] 115 mg/dL High 65-99 [facility] Comment on above: Performed By: #### C BCA, THYR, CMP, , 2132-07 #### [facility] ([id number]) [address] [address] [place] [address] Potassium [Moles/Vol] 4.1 mmol/L Normal 3.5-5.0 [facility] Comment on above: Performed By: #### C BCA, THYR, CMP, , 2132-07 #### [facility] ([id number]) [address], [address] [place] [address] Sodium [Moles/Vol] 137 mmol/L Normal 134-146 [facility] Comment on above: Performed By: #### C BCA, THYR, CMP, , 2132-07 #### [facility] ([id number]) [address] [address] [place] [address] Urea nitrogen [Mass/Vol] 21 mg/dL Normal 5-23 [facility] Comment on above: Performed By: #### C BCA, THYR, CMP, , 2132-07 #### [facility] ([id number]) [address], [address] [place] [address] CBC AND AUTO DIFFon 03-19-20 24 ABSOLUTE BASOPHIL 0.0 X10E9/L Normal 0.0-0.2 [facility] Comment on above: Performed By: #### C BCA, PINR, 30073-0, BMP, 3040-3, 74029-3, LIVR, 34220-1 #### [facility] ([id number]) [address] [place] [address] ABSOLUTE NEUTROPHIL 7.9 X10E9/L High 1.5-6.6 [facility] Comment on above: Performed By: #### C BCA, PINR, 52341-5, BMP, 3040-3, 55128-6, LIVR, 01057-1 #### [facility] ([id number]) [address] [place] [address] Basophils/100 WBC (Bld) 0.4 % Normal [facility] Comment on above: Performed By: #### C BCA, PINR, 71203-5, BMP, 3040-3, 42652-7, LIVR, 69210-7 #### [facility] ([id number]) [address] [place] [address] Eosinophils (Bld) [#/Vol] 0.2 10*3/uL Normal 0.0-0.4 [facility] Comment on above: Performed By: #### C BCA, PINR, 38380-6, BMP, 3040-3, 85618-5, LIVR, 70472-7 #### [facility] ([id number]) [address] [place] [address] Eosinophils/100 WBC (Bld) 2.4 % Normal [facility] Comment on above: Performed By: #### C BCA, PINR, 07821-6, BMP, 3040-3, 29011-4, LIVR, 42312-2 #### [facility] ([id number]) [address] [place] [address] Erythrocyte distribution width (RBC) [Ratio] 20.0 % High 11.5-15.0 [facility] Comment on above: Performed By: #### C BCA, PINR, 83342-7, BMP, 3040-3, 43950-0, LIVR, 08398-0 #### [facility] ([id number]) [address] [place] [address] Hematocrit (Bld) [Volume fraction] 35.6 % Normal 35-47 [facility] Comment on above: Performed By: #### C BCA, PINR, 12052-4, BMP, 3040-3, 57763-4, LIVR, 50151-9 #### [facility] ([id number]) [address] [place] [address] Hemoglobin (Bld) [Mass/Vol] 11.8 g/dL Normal 11.7-15.5 [facility] Comment on above: Performed By: #### C BCA, PINR, 85458-4, BMP, 3040-3, 97390-0, LIVR, 94119-2 #### [facility] ([id number]) [address] [place] [address] Lymphocytes (Bld) [#/Vol] 0.4 10*3/uL Low 1.0-3.5 [facility] Comment on above: Performed By: #### C BCA, PINR, 94654-5, BMP, 3040-3, 12387-1, LIVR, 97348-1 #### [facility] ([id number]) [address] [place] [address] Lymphocytes/100 WBC (Bld) 4.4 % Normal [facility] Comment on above: Performed By: #### C BCA, PINR, 41852-5, BMP, 3040-3, 63098-4, LIVR, 71539-4 #### [facility] ([id number]) [address] [place] [address] MCH (RBC) [Entitic mass] 25.9 pg Low 27-34 [facility] Comment on above: Performed By: #### C BCA, PINR, 12636-6, BMP, 3040-3, 89889-9, LIVR, 30940-2 #### [facility] ([id number]) [address] [place] [address] MCHC (RBC) [Mass/Vol] 33.1 g/dL Normal 32-36 [facility] Comment on above: Performed By: #### C BCA, PINR, 02597-0, BMP, 3040-3, 45404-8, LIVR, 45791-5 #### [facility] ([id number]) [address] [place] [address] MCV (RBC) [Entitic vol] 78 fL Low 80-100 [facility] Comment on above: Performed By: #### C BCA, PINR, 15169-8, BMP, 3040-3, 55000-3, LIVR, 59028-7 #### [facility] ([id number]) [address] [place] [address] Monocytes (Bld) [#/Vol] 0.4 10*3/uL Normal 0-0.9 [facility] Comment on above: Performed By: #### C BCA, PINR, 97165-9, BMP, 3040-3, 83545-6, LIVR, 42230-6 #### [facility] ([id number]) [address] [place] [address] Monocytes/100 WBC (Bld) 4.9 % Normal [facility] Comment on above: Performed By: #### C BCA, PINR, 75747-3, BMP, 3040-3, 08202-2, LIVR, 63260-2 #### [facility] ([id number]) [address] [place] [address] Neutrophils/100 WBC (Bld) 87.9 % Normal [facility] Comment on above: Performed By: #### C BCA, PINR, 40383-2, BMP, 3040-3, 08108-6, LIVR, 63418-9 #### [facility] ([id number]) [address] [place] [address] Platelet mean volume (Bld) [Entitic vol] 7.8 fL Normal 7-12 [facility] Comment on above: Performed By: #### C BCA, PINR, 25765-6, BMP, 3040-3, 73465-7, LIVR, 29095-3 #### [facility] ([id number]) [address] [place] [address] Platelets (Bld) [#/Vol] 296 10*3/uL Normal 150-450 [facility] Comment on above: Performed By: #### C BCA, PINR, 43430-1, BMP, 3040-3, 43562-9, LIVR, 12468-4 #### [facility] ([id number]) [address] [place] [address] RBC COUNT 4.54 X10E12/L Normal 3.80-5.20 [facility] Comment on above: Performed By: #### C BCA, PINR, 74061-0, BMP, 3040-3, 60640-7, LIVR, 71332-9 #### [facility] ([id number]) [address] [place] [address] WBC (Bld) [#/Vol] 9.0 10*3/uL Normal 4.0-11.0 [facility] Comment on above: Performed By: #### C BCA, PINR, 13647-7, BMP, 3040-3, 33295-3, LIVR, 84167-9 #### [facility] ([id number]) [address] [place] [address] LIPASEon 02-03-2024 Lipase [Catalytic activity/Vol] 39 U/L Normal 17-40 [facility] Comment on above: Performed By: #### C BCA, THYR, CMP, , 2132-07 #### [facility] ([id number]) [address], [address] [place] [address] LIVER PANELon 02-03-2024 Albumin [Mass/Vol] 3.9 g/dL Normal 3.2-5.3 [facility] Comment on above: Performed By: #### C BCA, THYR, CMP, , 2132-07 #### [facility] ([id number]) [address], [address] [place] [address] ALP [Catalytic activity/Vol] 45 U/L Normal 39-130 [facility] Comment on above: Performed By: #### C BCA, THYR, CMP, , 2132-07 #### [facility] ([id number]) [address], [address] [place] [address] ALT [Catalytic activity/Vol] 28 U/L Normal 0-31 [facility] Comment on above: Performed By: #### C BCA, THYR, CMP, , 2132-07 #### [facility] ([id number]) [address], [address] [place] [address] AST [Catalytic activity/Vol] 24 U/L Normal 0-41 [facility] Comment on above: Performed By: #### C BCA, THYR, CMP, , 2132-07 #### [facility] ([id number]) [address], [address] [place] [address] Bilirubin [Mass/Vol] 1.6 mg/dL High 0.3-1.2 [facility] Comment on above: Performed By: #### C BCA, THYR, CMP, , 2132-07 #### [facility] ([id number]) [address], [address] [place] [address] Bilirubin.direct [Mass/Vol] 0.2 mg/dL Normal 0.0-0.4 [facility] Comment on above: Performed By: #### C BCA, THYR, CMP, , 2132-07 #### [facility] ([id number]) [address], [address] [place] [address] Protein [Mass/Vol] 7.2 g/dL Normal 6.0-8.0 [facility] Comment on above: Performed By: #### C BCA, THYR, CMP, , 2132-07 #### [facility] ([id number]) [address], [address] [place] [address] Lactate (P kannan) [Moles/Vol]o n 02-03-2024 LACTATE W/REFLEX 1.2 mmol/L Normal 0.4-2.0 [facility] Comment on above: Result Comment: Result did not trigger repeat Lactate, re-order if needed. Performed By: #### C BCA, THYR, CMP, , 2132-07 #### [facility] ([id number]) [address], [address] [place] [address] MAGNESIUMon 02-03-2024 Magnesium [Mass/Vol] 2.1 mg/dL Normal 1.8-2.6 [facility] Comment on above: Performed By: #### C BCA, THYR, CMP, , 2132-07 #### [facility] ([id number]) [address] [address] [place] [address] PROTIME AND INRon 02-03-2024 INR Coag (PPP) [Relative time] 1.1 {INR} Normal 0.8-1.1 [facility] Comment on above: Performed By: #### C BCA, PINR, 26431-5, BMP, 3040-3, 46657-3, LIVR, 36882-0 #### [facility] ([id number]) [address] [place] [address] PT Coag (PPP) [Time] 12.9 s Normal 9.8-13.2 [facility] Comment on above: Result Comment: NEW REFERENCE RANGE Performed By: #### C BCA, PINR, 18488-8, BMP, 3040-3, 14921-3, LIVR, 44326-1 #### [facility] ([id number]) [address] [place] [address] SARS/FLU A+B/RSV by NAAT/Mol ecularon 02-03-2024 SARS/FLU A+B/RSV by NAAT/Molecular FLU A PCR Negative (qualifier value) FLU B PCR Negative (qualifier value) RSV by PCR Negative (qualifier value) SARS CoV 2 Not detected (qualifier value) NOTE The Xpert Xpress SARS-CoV-2/Flu/RSV Plus test is a rapid, multiplexed real-time RT-PCR test intended for the simultaneous qualitative detection and differentiation of SARS-CoV-2, influenza A, influenza B and respiratory syncytial virus (RSV) viral RNA from individuals suspected of respiratory viral infection consistent with COVID-19 by their healthcare provider. This test has not been validated in asymptomatic patients. The Xpert Xpress SARS-CoV-2 test is intended for use by qualified and trained operators who are performing tests using either [employer] or [employer] systems and is limited to laboratories that meet the CLIA requirements to perform high and moderate complexity tests. The Xpert Xpress SARS-CoV-2/Flu/RSV Plus is only for use under the Food and Drug Administration's Emergency Use Authorization. Results are for the simultaneous detection and differentiation of SARS-CoV-2, influenza A, influenza B and RSV nucleic acids in clinical specimens. SARS-CoV-2, influenza A, influenza B and RSV RNA identified by this test are generally detectable in upper respiratory samples during the acute phase of infection. Positive results are indicative of the presence of the identified virus, but do not rule out bacterial infection or co-infection with other pathogens not detected by this test. Clinical correlation with patient history and other diagnostic information is necessary to determine patient infection status. The agent detected may not be the definite cause of disease. Negative results do not preclude SARS-CoV-2, influenza A, influenza B and RSV infection and should not be used as the sole basis for treatment or other patient management decisions. Negative results must be combined with clinical observations, patient history and epidemiological information. An Invalid result may occur with specimen-associated inhibition unable to be resolved with specimen repeat. Fact Sheet for Healthcare Providers: https://www.fda.gov /media/848829/downl oad Fact Sheet for Patients: https://www.fda.gov /media/542202/downl oad Normal [facility] Comment on above: Performed By: #### C BCA, THYR, CMP, 03645-1, 2132-07 #### [facility] ([id number]) [address], [address] [place] [address] aPTT Coag (PPP) [Time]on aPTT Coag (Bld) [Time] 29 s Normal 26-37 [facility] Comment on above: Result Comment: NEW REFERENCE RANGE Performed By: #### C BCA, THYR, CMP, 68661-3, 2132-07 #### [facility] ([id number]) [address], [address] [place] [address] XR ANKLE LT MIN 3 VWSon 030 XR ANKLE LT MIN 3 VWS XR ANKLE LT MIN 3 VWS XR ANKLE LT MIN 3 VWS HISTORY: Ankle pain, fifth metatarsal pain COMPARISON: None FINDINGS: AP, lateral, oblique views obtained. No fracture or dislocation. Ankle mortise is intact. Small ankle joint effusion. Lateral malleolar soft tissue swelling. No significant degenerative changes. IMPRESSION: * No acute osseous abnormality. * Soft tissue swelling adjacent to the lateral malleolus. * Small joint effusion. Approved by Resident: Jose A Griffiths DO on 01/19/2024 6:04 AM I, Baldemar Saavedra have personally reviewed the image(s) and agree with and/or edited the report 3 Finalized by Baldemar Saavedra on 01/19/2024 6:13 AM Normal [facility] XR FEMUR LT 2+ VIEWSon 12-27 XR FEMUR LT 2+ VIEWS XR FEMUR LT 2+ VIEWS XR FEMUR LT 2+ VIEWS: 12/26/2023 11:22 AM Clinical: Left thigh pain and numbness EXAM; LEFT FEMUR RADIOGRAPHS Comparison: none views:2 Findings: There is no acute fracture or destructive lesion. Unremarkable visualized joint spaces. Impression: * No acute findings. 8 Finalized by Juan Carlos Carpenter MD on 12/27/2023 11:54 AM Normal [facility] CBC AND AUTO DIFFon 12-26-19 ABSOLUTE BASOPHIL 0.0 X10E9/L Normal 0.0-0.2 [facility] Comment on above: Performed By: #### C BCA, THYR, CMP, , 2132-07 #### [facility] ([id number]) [address], [address] [place] [address] ABSOLUTE NEUTROPHIL 3.3 X10E9/L Normal 1.5-6.6 [facility] Comment on above: Performed By: #### C BCA, THYR, CMP, , 2132-07 #### [facility] ([id number]) [address], [address] [place] [address] Basophils/100 WBC (Bld) 0.8 % Normal [facility] Comment on above: Performed By: #### C BCA, THYR, CMP, , 2132-07 #### [facility] ([id number]) [address], [address] [place] [address] Eosinophils (Bld) [#/Vol] 0.3 10*3/uL Normal 0.0-0.4 [facility] Comment on above: Performed By: #### C BCA, THYR, CMP, , 2132-07 #### [facility] ([id number]) [address], [address] [place] [address] Eosinophils/100 WBC (Bld) 5.1 % Normal [facility] Comment on above: Performed By: #### C BCA, THYR, CMP, , 2132-07 #### [facility] ([id number]) [address], [address] [place] [address] Erythrocyte distribution width (RBC) [Ratio] 21.1 % High 11.5-15.0 [facility] Comment on above: Performed By: #### C BCA, THYR, CMP, , 2132-07 #### [facility] ([id number]) [address], [address] [place] [address] Hematocrit (Bld) [Volume fraction] 33.4 % Low 35-47 [facility] Comment on above: Performed By: #### C BCA, THYR, CMP, , 2132-07 #### [facility] ([id number]) [address], [address] [place] [address] Hemoglobin (Bld) [Mass/Vol] 10.8 g/dL Low 11.7-15.5 [facility] Comment on above: Performed By: #### C BCA, THYR, CMP, , 2132-07 #### [facility] ([id number]) [address] [place] [address] Lymphocytes (Bld) [#/Vol] 1.9 10*3/uL Normal 1.0-3.5 [facility] Comment on above: Performed By: #### C BCA, THYR, CMP, , 2132-07 #### [facility] ([id number]) [address] [place] [address] Lymphocytes/100 WBC (Bld) 29.9 % Normal [facility] Comment on above: Performed By: #### C BCA, THYR, CMP, , 2132-07 #### [facility] ([id number]) [address] [place] [address] MCH (RBC) [Entitic mass] 24.3 pg Low 27-34 [facility] Comment on above: Performed By: #### C BCA, THYR, CMP, , 2132-07 #### [facility] ([id number]) [address], [address] [place] [address] MCHC (RBC) [Mass/Vol] 32.2 g/dL Normal 32-36 [facility] Comment on above: Performed By: #### C BCA, THYR, CMP, , 2132-07 #### [facility] ([id number]) [address], [address] [place] [address] MCV (RBC) [Entitic vol] 76 fL Low 80-100 [facility] Comment on above: Performed By: #### C BCA, THYR, CMP, , 2132-07 #### [facility] ([id number]) [address] [place] [address] Monocytes (Bld) [#/Vol] 0.7 10*3/uL Normal 0-0.9 [facility] Comment on above: Performed By: #### C BCA, THYR, CMP, , 2132-07 #### [facility] ([id number]) [address] [place] [address] Monocytes/100 WBC (Bld) 11.3 % Normal [facility] Comment on above: Performed By: #### C BCA, THYR, CMP, , 2132-07 #### [facility] ([id number]) [address] [place] [address] Neutrophils/100 WBC (Bld) 52.9 % Normal [facility] Comment on above: Performed By: #### C BCA, THYR, CMP, , 2132-07 #### [facility] ([id number]) [address] [place] [address] Platelet mean volume (Bld) [Entitic vol] 8.2 fL Normal 7-12 [facility] Comment on above: Performed By: #### C BCA, THYR, CMP, , 2132-07 #### [facility] ([id number]) [address], [facility] [address] [place] [address] Platelets (Bld) [#/Vol] 296 10*3/uL Normal 150-450 [facility] Comment on above: Performed By: #### C BCA, THYR, CMP, , 2132-07 #### [facility] ([id number]) [address] [address] [place] [address] RBC COUNT 4.42 X10E12/L Normal 3.80-5.20 [facility] Comment on above: Performed By: #### C BCA, THYR, CMP, , 2132-07 #### [facility] ([id number]) [address] [address] [place] [address] WBC (Bld) [#/Vol] 6.2 10*3/uL Normal 4.0-11.0 [facility] Comment on above: Performed By: #### C BCA, THYR, CMP, , 2132-07 #### [facility] ([id number]) [address], [address] [place] [address] COMPREHENSIVE METABOLIC PANE Duran 12-26-2023 Albumin [Mass/Vol] 3.9 g/dL Normal 3.2-5.3 [facility] Comment on above: Performed By: #### C BCA, THYR, CMP, 67342-9, 2132-07 #### [facility] ([id number]) [address], [address] [place] [address] ALP [Catalytic activity/Vol] 46 U/L Normal 39-130 [facility] Comment on above: Performed By: #### C BCA, THYR, CMP, , 2132-07 #### [facility] ([id number]) [address], [address] [place] [address] ALT [Catalytic activity/Vol] 20 U/L Normal 0-31 [facility] Comment on above: Performed By: #### C BCA, THYR, CMP, , 2132-07 #### [facility] ([id number]) [address], [address] [place] [address] Anion gap [Moles/Vol] 7 mmol/L Normal 5-15 [facility] Comment on above: Performed By: #### C BCA, THYR, CMP, , 2132-07 #### [facility] ([id number]) [address], [address] [place] [address] AST [Catalytic activity/Vol] 13 U/L Normal 0-41 [facility] Comment on above: Performed By: #### C BCA, THYR, CMP, , 2132-07 #### [facility] ([id number]) [address], [address] [place] [address] Bilirubin [Mass/Vol] 1.2 mg/dL Normal 0.3-1.2 [facility] Comment on above: Performed By: #### C BCA, THYR, CMP, , 2132-07 #### [facility] ([id number]) [address], [address] [place] [address] Calcium [Mass/Vol] 9.0 mg/dL Normal 8.5-10.5 [facility] Comment on above: Performed By: #### C BCA, THYR, CMP, , 2132-07 #### [facility] ([id number]) [address], [address] [place] [address] Chloride [Moles/Vol] 106 mmol/L Normal 98-109 [facility] Comment on above: Performed By: #### C BCA, THYR, CMP, , 2132-07 #### [facility] ([id number]) [address] [place] [address] CO2 [Moles/Vol] 26 mmol/L Normal 22-32 [facility] Comment on above: Performed By: #### C BCA, THYR, [facility], , 2132-07 #### [facility] ([id number]) [address] [place] [address] Creatinine [Mass/Vol] 0.63 mg/dL Normal 0.40-1.00 [facility] Comment on above: Result Comment: METH OD TRACEABLE TO IDMS STANDARD Performed By: #### C BCA, THYR, [facility], , 2132-07 #### [facility] ([id number]) [address], [address] [place] [address] eGFR (CKD-EPI) NON-RACE DEPENDENT >90 Normal >59 [facility] Comment on above: Result Comment: Reported eGFR is based on the CKD-EPI 2020 equation that does not use a race coefficient. Performed By: #### C BCA, THYR, CMP, , 2132-07 #### [facility] ([id number]) [address] [place] [address] Glucose [Mass/Vol] 92 mg/dL Normal 65-99 [facility] Comment on above: Performed By: #### C BCA, THYR, CMP, , 2132-07 #### [facility] ([id number]) [address] [place] [address] Potassium [Moles/Vol] 4.5 mmol/L Normal 3.5-5.0 [facility] Comment on above: Performed By: #### C BCA, THYR, CMP, 54678-6, 2132-07 #### [facility] ([id number]) [address] [place] [address] Protein [Mass/Vol] 6.5 g/dL Normal 6.0-8.0 [facility] Comment on above: Performed By: #### C BCA, THYR, CMP, 16509-8, 2132-07 #### [facility] ([id number]) [address], [address] [place] [address] Sodium [Moles/Vol] 139 mmol/L Normal 134-146 [facility] Comment on above: Performed By: #### C BCA, THYR, CMP, 19164-4, 2132-07 #### [facility] ([id number]) [address], [address] [place] [address] Urea nitrogen [Mass/Vol] 12 mg/dL Normal 5-23 [facility] Comment on above: Performed By: #### C BCA, THYR, CMP, 30697-1, 9 #### [facility] ([id number]) [address], [address] [place] [address] Lipid 1996 panelon 4 Cholesterol [Mass/Vol] 167 mg/dL Normal 150-200 [facility] Comment on above: Performed By: #### C BCA, THYR, CMP, 60428-7, 2132-07 #### [facility] ([id number]) [address], [address] [place] [address] Cholesterol in HDL [Mass/Vol] 45 mg/dL Normal >39 [facility] Comment on above: Result Comment: HDL <40 mg/dL - High Risk HDL > or = 40mg/dL- Desirable HDL >60 mg/dL - Negative Risk Performed By: #### C BCA, THYR, CMP, , 2132-07 #### [facility] ([id number]) [address], [address] [place] [address] Cholesterol in LDL [Mass/Vol] 105 mg/dL Normal <130 [facility] Comment on above: Result Comment: LDL <100 mg/dL - Desirable LDL >160 mg/dL - High Risk Performed By: #### C BCA, THYR, CMP, , 2132-07 #### [facility] ([id number]) [address], [address] [place] [address] Cholesterol in VLDL [Mass/Vol] 17 mg/dL Normal 0-30 [facility] Comment on above: Performed By: #### C BCA, THYR, CMP, , 2132-07 #### [facility] ([id number]) [address], [address] [place] [address] CHOLESTEROL:HDL 3.7 Normal 1.0-5.0 [facility] Comment on above: Performed By: #### C BCA, THYR, CMP, , 2132-07 #### [facility] ([id number]) [address], [address] [place] [address] Triglyceride [Mass/Vol] 86 mg/dL Normal 27-150 [facility] Comment on above: Performed By: #### C BCA, THYR, CMP, , 2132-07 #### [facility] ([id number]) [address], [address] [place] [address] THYROID PROFILEon 12-26-2023 Free T4 [Mass/Vol] 0.76 ng/dL Normal 0.61-1.60 [facility] Comment on above: Performed By: #### C BCA, THYR, CMP, 91539-2, 2132-07 #### [facility] ([id number]) [address], [address] [place] [address] TSH 4.47 uIU/mL Normal 0.49-4.67 [facility] Comment on above: Performed By: #### C BCA, THYR, CMP, 74781-4, 2132-07 #### [facility] ([id number]) [address], [address] [place] [address] VITAMIN B12on 12-26-2023 Cobalamin (Vitamin B12) [Mass/Vol] 226 pg/mL Normal 180-914 [facility] Comment on above: Performed By: #### C BCA, THYR, [facility], , 2132-07 #### [facility] ([id number]) [address], [address] [place] [address] XR HIP LT 2-3 VIEWS W OR WO PELVISon 12-26-2023 XR HIP LT 2-3 VIEWS W OR WO PELVIS XR HIP LT 2-3 VIEWS W OR WO PELVIS CLINICAL INFORMATION: Left thigh pain; Numbness and tingling of left leg TECHNIQUE: XR HIP LT 2-3 VIEWS W OR WO PELVIS 3 views left hip were obtained. Mild left hip osteoarthritic changes noted. Is no acute fracture. Sacral ala appear intact. IMPRESSION: Mild osteoarthritis. 4 Finalized by Blayne Medrano MD on 12/26/2023 4:37 PM Normal [facility] SARS-CoV-2 (COVID-19) RNA NA A+probe Ql (Resp)on 06-19-2022 SARS-CoV-2 (COVID-19) RNA ANDI+probe Ql (Unsp spec) Negative [employer] Other Covid-19 PCR ([facility])on 07-19 SARS-CoV-2 (COVID-19) RNA ANDI+probe Ql (Unsp spec) Not detected Normal NOT DETECTED [facility] Comment on above: Result Comment: This test is not yet approved or cleared by the [place] FDA. When there are no FDA-approved or cleared tests available, and other criteria are met, FDA can make tests available under an emergency access mechanism called an Emergency Use Authorization (EUA). The EUA for this test is supported by the [place] of Health and Human Service's (HHS's) declaration that circumstances exist to justify the emergency use of in vitro diagnostics for the detection and/or diagnosis of the virus that causes COVID-19. This EUA will remain in effect (meaning this test can be used) for the duration of the COVID-19 declaration justifying emergency of IVDs, unless it is terminated or revoked by FDA (after which the test may no longer be used). When diagnostic testing is negative, the possibility of a false negative should be considered in the context of a patient's recent exposures and the presence of clinical signs and symptoms consistent with SARS-CoV-2. Performed By: #### [facility] #### [facility] [address] [place] [address] Dr. Mil Novoa Vital Signs Date Time Vital Sign Value Performing Clinician Facility 10-03-2024 13:03-0500 Body height 172.72 cm PHYSICIAN NO [facility] 10-03-2024 13:03-0500 Body mass index (BMI) [Ratio] 34.7 kg/m2 PHYSICIAN [facility] 10-03-2024 13:03-0500 Body temperature 98.5 [degF] PHYSICIAN NO [facility] 10-03-2024 13:03-0500 Body weight 103.64 kg PHYSICIAN NO [facility] 10-03-2024 13:03-0500 Diastolic blood pressure 72 mm[Hg] PHYSICIAN NO [facility] 10-03-2024 13:03-0500 Heart rate 73 /min PHYSICIAN NO [facility] 10-03-2024 13:03-0500 Respiratory rate 18 /min PHYSICIAN NO [facility] 10-03-2024 13:03-0500 SaO2% (BldA) [Mass fraction] 96 % PHYSICIAN NO [facility] 10-03-2024 13:03-0500 Systolic blood pressure 110 mm[Hg] PHYSICIAN NO [facility] 02-17-2024 16:25-0400 Body mass index (BMI) [Ratio] 39.23 kg/m2 Garrison Temple PAN GREASER-INVESTMENT FUND MANAGER Work Phone: [facility] 02-17-2024 16:25-0400 Body temperature 98.2 [degF] Garrison Temple PAN GREASER-INVESTMENT FUND MANAGER Work Phone: [facility] 02-17-2024 16:25-0400 Body weight 117.03 kg Garirson Temple PAN GREASER-INVESTMENT FUND MANAGER Work Phone: [facility] 02-17-2024 16:25-0400 Diastolic blood pressure 72 mm[Hg] Garrison Temple PAN GREASER-INVESTMENT FUND MANAGER Work Phone: [facility] 02-17-2024 16:25-0400 Heart rate 98 /min Garrison Temple PAN GREASER-INVESTMENT FUND MANAGER Work Phone: [facility] 02-17-2024 16:25-0400 SaO2% (BldA) [Mass fraction] 98 % Garrison Temple PAN GREASER-INVESTMENT FUND MANAGER Work Phone: [facility] 02-17-2024 16:25-0400 Systolic blood pressure 128 mm[Hg] Garrison Temple PAN GREASER-INVESTMENT FUND MANAGER Work Phone: [facility] 01-08-2024 08:17-0500 Body height 172.7 cm [facility] Physician Aide [facility] 01-08-2024 08:17-0500 Body mass index (BMI) [Ratio] 39.53 kg/m2 [facility] Physician Aide [facility] 01-08-2024 08:17-0500 Body weight 117.94 kg [facility] Physician Aide [facility] 01-08-2024 08:17-0500 Diastolic blood pressure 78 mm[Hg] [facility] Physician Aide [facility] 01-08-2024 08:17-0500 Systolic blood pressure 122 mm[Hg] [facility] Physician Aide [facility] 01-07-2024 14:53-0500 Body height 172.7 cm Denae Verhoff PA-C Work Phone: [facility] 01-07-2024 14:53-0500 Body mass index (BMI) [Ratio] 39.53 kg/m2 Denae Verhoff PA-C Work Phone: [facility] 01-07-2024 14:53-0500 Body weight 117.94 kg Denae Verhoff PA-C Work Phone: [facility] 01-07-2024 14:53-0500 Diastolic blood pressure 88 mm[Hg] Denae Verhoff PA-C Work Phone: [facility] 01-07-2024 14:53-0500 Heart rate 82 /min Denae Verhoff PA-C Work Phone: [facility] 01-07-2024 14:53-0500 Respiratory rate 18 /min Denae Verhoff PA-C Work Phone: [facility] 01-07-2024 14:53-0500 SaO2% (BldA) [Mass fraction] 99 % Denae Verhoff PA-C Work Phone: [facility] 01-07-2024 14:53-0500 Systolic blood pressure 132 mm[Hg] Denae Verhoff PA-C Work Phone: [facility] 12-24-2023 14:03-0500 Body height 172.7 cm Meagan García APRN-INVESTMENT FUND MANAGER Work Phone: [facility] 12-24-2023 14:03-0500 Body mass index (BMI) [Ratio] 39.75 kg/m2 Meagan aGrcía PAN GREASER-INVESTMENT FUND MANAGER Work Phone: [facility] 12-24-2023 14:03-0500 Body temperature 98.6 [degF] Meagan García APRN-INVESTMENT FUND MANAGER Work Phone: [facility] 12-24-2023 14:03-0500 Body weight 118.57 kg Meagan García PAN GREASER-INVESTMENT FUND MANAGER Work Phone: [facility] 12-24-2023 14:03-0500 Diastolic blood pressure 80 mm[Hg] Meagan García PAN GREASER-INVESTMENT FUND MANAGER Work Phone: [employer] 12-24-2023 14:03-0500 Heart rate 81 /min Meagan García PAN GREASER-INVESTMENT FUND MANAGER Work Phone: [facility] 12-24-2023 14:03-0500 SaO2% (BldA) [Mass fraction] 96 % Meagan García PAN GREASER-INVESTMENT FUND MANAGER Work Phone: [facility] 12-24-2023 14:03-0500 Systolic blood pressure 122 mm[Hg] Meagan García PAN GREASER-INVESTMENT FUND MANAGER Work Phone: [facility] 06-19-2022 18:40-0400 Body height 172.72 cm Elizabeth Thu Other [employer] Other 06-19-2022 18:40-0400 Body mass index (BMI) [Ratio] 32.69 kg/m2 Elizabeth Thu Other [employer] Other 06-19-2022 18:40-0400 Body temperature 99.4 [degF] Elizabeth Thu Other [employer] Other 06-19-2022 18:40-0400 Body weight 97.52 kg Elizabeth Thu Other [employer] Other 06-19-2022 18:40-0400 Respiratory rate 18 /min Elizabeth Thu Other [employer] Other 06-19-2022 18:40-0400 SaO2% (BldA) [Mass fraction] 97 % Elizabeth Condemond Other [employer] Other Encounters Encounter Date Encounter Type Care Provider Facility Start: 11-30-2024 End: 12-01-2024 Telephone encounter Graciela Gautam CMA [facility] Start: 11-05-2024 End: 11-05-2024 ambulatory PHYSICIAN NO [facility] Facility:[facility] Start: 10-03-2024 End: 10-03-2024 Patient encounter procedure PHYSICIAN NO [facility] Work Phone: Start: 10-03-2024 End: 10-03-2024 ambulatory PHYSICIAN NO [facility] Work Phone: Start: 10-03-2024 End: 10-03-2024 Patient encounter procedure PHYSICIAN NO [facility] Work Phone: Start: 03-26-2024 End: 03-26-2024 Evaluation and management of inpatient MIKAELA IBARRA [facility] Start: 03-25-2024 End: 03-26-2024 Evaluation and management of inpatient JAVY NOELKaci [facility] Start: 03-17-2024 End: 04-17-2024 ambulatory [facility] Start: 03-10-2024 End: 03-10-2024 ambulatory EDMOND SMITH [facility] Start: 02-23-2024 End: 03-17-2024 ambulatory [facility] Start: 02-17-2024 End: 02-17-2024 ambulatory [facility] Start: 02-17-2024 End: 02-17-2024 Office outpatient visit 25 minutes [facility] PAN GREASER-INVESTMENT FUND MANAGER Work Phone: [facility] Comment on above: Blood in stool (Prim jeremy Dx); Black tarry stools; History of stomach ulcers; Sprain of left ankle, unspecified ligament, subsequent encounter; Left lower quadrant abdominal pain Start: 02-10-2024 End: 02-10-2024 ambulatory [facility] Start: 02-03-2024 End: 02-03-2024 Emergency department patient visit [facility] Start: 01-21-2024 Orders Only Leatha Smith [facility] Comment on above: Breast pain (Primary Dx); Family history of breast cancer Start: 01-20-2024 End: 01-20-2024 Emergency department patient visit [facility] Start: 01-19-2024 End: 01-20-2024 Emergency department patient visit MELINDA Tang RAVEN [facility] Start: 01-08-2024 End: 01-08-2024 ambulatory [facility] Start: 01-08-2024 End: 01-08-2024 Office outpatient visit 15 minutes [facility] Physician Aide [facility] Comment on above: Breast pain in pregn rachna (Primary Dx); Family history of breast cancer Start: 01-07-2024 End: 01-07-2024 Office outpatient visit 15 minutes Denae Alberto PA-C Work Phone: [facility] Comment on above: Thoracic spondylosis without myelopathy (Primary Dx) Start: 01-07-2024 End: 01-07-2024 ambulatory DENAE ALBERTO [facility] Start: 12-26-2023 End: 12-26-2023 ambulatory [facility] Start: 12-24-2023 End: 12-24-2023 ambulatory [facility] Start: 12-24-2023 End: 12-24-2023 Office outpatient new 30 minutes [facility] PAN GREASER-INVESTMENT FUND MANAGER Work Phone: [facility] Comment on above: Left thigh pain (Olena italia Dx); Numbness and tingling of left leg; Lipid screening Start: 12-13-2023 End: 12-13-2023 ambulatory DAVIS HAYES [facility] Start: 12-12-2023 End: 12-12-2023 ambulatory BRENNEN Crowell BECKFORD [facility] Start: 12-01-2023 End: 12-01-2023 ambulatory REX CONTRERAS [facility] Start: 11-28-2023 End: 11-28-2023 ambulatory BRENNEN BECKFORD [facility] Start: 10-21-2023 End: 10-21-2023 ambulatory Mariely Hitchcock Other [facility] [email or web address] Other Start: 10-21-2023 Patient encounter procedure Mariely Hitchcock [facility] Start: 06-19-2022 End: 06-19-2022 ambulatory Elizabeth Andino Other [employer] Other Start: 06-19-2022 Office outpatient vi sit 15 minutes Elizabeth Andino [facility] Start: 08-06-2021 End: 08-06-[address] PEARL FAJARDO Facility: Procedures Date Procedure Procedure Detail Performing Clinician Start: 10-03-2024 Quick Strep (POC) PHYSI EMELIA [facility] Start: 10-03-2024 Plain chest X-ray PHYSI EMELIA [facility] Start: 02-10-2024 Mammography Garrison Devon PAN GREASERHealthcare Corporation of AmericaINVESTMENT FUND MANAGER Work Phone: Start: 12-24-2023 Adult depression scr eening assessment Meagan García PAN GREASER-INVESTMENT FUND MANAGER Work Phone: Start: 04-30-2023 Mammography Meagan dunne PAN GREASER-INVESTMENT FUND MANAGER Work Phone: Start: 04-30-2023 Microscopic observat ion [Identifier] in Cervix by Cyto stain Meagan García PAN GREASERHealthcare Corporation of AmericaINVESTMENT FUND MANAGER Work Phone: Start: 02-22-2020 Colonoscopy Meagan dunne PAN GREASERHealthcare Corporation of AmericaINVESTMENT FUND MANAGER Work Phone: Plan of Treatment Date Care Activity Detail Author Start: 04-30-2026 Screening for malign ant neoplasm of cervix Pap Smear [facility] Start: 05-12-2025 Adult BMI Screening Adult BMI Screen ing [facility] Start: 05-12-2025 Tobacco Screening Tobacco Screening [facility] Start: 02-21-2025 Screening for malign ant neoplasm of colon Colonoscopy [facility] Start: 02-16-2025 Adult BMI Screening Adult BMI Screen ing [facility] Start: 02-16-2025 Tobacco Screening Tobacco Screening [facility] Start: 02-09-2025 Screening for malign ant neoplasm of breast Mammogram [facility] Start: 01-19-2025 Adult BMI Screening Adult BMI Screen ing [facility] Start: 01-19-2025 Tobacco Screening Tobacco Screening [facility] Start: 01-08-2025 Adult BMI Screening Adult BMI Screen ing [facility] Start: 01-07-2025 Adult BMI Screening Adult BMI Screen ing [facility] Start: 01-07-2025 Tobacco Screening Tobacco Screening [facility] Start: 12-24-2024 Adult BMI Screening Adult BMI Screen ing [facility] Start: 12-24-2024 Depression Screening Depression Scre ening [facility] Start: 12-24-2024 Tobacco Screening Tobacco Screening [facility] Start: 07-18-2024 COVID-19 Vaccine ( season) COVID-19 Vaccine ( season) [facility] Start: 07-18-2024 Influenza vaccination Influenza Vacc ine [facility] Start: 05-12-2024 End: 05-12-2024 Patient encounter procedure 05/12/2024 8:45 AM EDT Office Visit [facility] [address] [place] [id number] Denae Alberto, PASalbadorC [address] [place] [address] [facility] Start: 05-05-2024 End: 05-05-2024 Patient encounter procedure 05/05/2024 2:45 PM EDT Office Visit [facility] [address] [place] [phone] Denae Alberto, JAYY [address] [place] [address] [facility] Start: 04-30-2024 Adult BMI Follow Up Plan Adult BMI Follow Up Plan [facility] Start: 04-30-2024 Screening for malign ant neoplasm of breast Mammogram [facility] Start: 03-10-2024 End: 03-10-2024 Patient encounter procedure [facility] Start: 03-03-2024 End: 03-03-2024 Patient encounter procedure 03/03/2024 8:40 AM EDT Office Visit [facility] [address] [place] [address] [place] [phone] Meagan García, PAN GREASER-INVESTMENT FUND MANAGER [address], [place] [address] [facility] Start: 02-10-2024 End: 02-10-2024 Patient encounter procedure [facility] Start: 01-21-2024 End: 01-20-2025 MG Breast Diagnostic Mammography diagnostic bilateral with CAD Imaging Routine Breast pain Family history of breast cancer Expected: 01/21/2024, Expires: 01/20/2025 [facility] Comment on above: Expected: 01/21/2024 , Expires: 01/20/2025 Start: 01-21-2024 End: 01-20-2025 US Breast - bilateral limited Ultrasound breast limited bilateral Imaging Routine Breast pain Family history of breast cancer Expected: 01/21/2024, Expires: 01/20/2025 [facility] Work Phone: Comment on above: Expected: 01/21/2024 , Expires: 01/20/2025 Start: 01-08-2024 End: 01-08-2025 MG Breast Diagnostic Mammography diagnostic bilateral with CAD Imaging Routine Breast pain in Family history of breast cancer Expected: 01/08/2024, Expires: 01/08/2025 [employer] Work Phone: Comment on above: Expected: 01/08/2024 , Expires: 01/08/2025 Start: 01-08-2024 End: 01-08-2025 US Breast - bilateral limited Ultrasound breast limited bilateral Imaging Routine Breast pain in Family history of breast cancer Expected: 01/08/2024, Expires: 01/08/2025 [facility] Comment on above: Expected: 01/08/2024 , Expires: 01/08/2025 Start: 01-08-2024 End: 01-08-2024 Patient encounter procedure 01/08/2024 8:15 AM EST Office Visit [facility] [address] [place] [address] [facility] Start: 01-07-2024 End: 01-07-2024 Patient encounter procedure 01/07/2024 2:45 PM EST Office Visit [facility] [address] [place] [phone] Denae Alberto, PAHeron [address] [facility] [place] [address] [facility] Start: 12-24-2023 End: 12-24-2024 XR Femur - left 2 Views X-ray femur left 2+ views Imaging Routine Left thigh pain Numbness and tingling of left leg Expected: 12/24/2023, Expires: 12/24/2024 [facility] Comment on above: Expected: 12/24/2023 , Expires: 12/24/2024 Start: 12-24-2023 End: 12-24-2024 XR Pelvis and Hip - left 2 Views X-ray hip left 2-3 views with or without pelvis Imaging Routine Left thigh pain Numbness and tingling of left leg Expected: 12/24/2023, Expires: 12/24/2024 [facility] Comment on above: Expected: 12/24/2023 , Expires: 12/24/2024 Start: 07-18-2023 COVID-19 Vaccine () COVID-19 Vaccine ( season) [facility] Start: 07-18-2023 Influenza vaccination Influenza Vacc ine [facility] Start: 1997 DTaP,Tdap and Td Vaccines (1 - Tdap) DTaP,Tdap and Td Vaccines (1 - Tdap) [facility] End: 12-24-2024 CBC W Auto Differential panel - Blood CBC auto differential Lab Routine Left thigh pain Numbness and tingling of left leg 1 Occurrences starting 12/24/2023 until 12/24/2024 [facility] Phone: Comment on above: 1 Occurrences starti ng 12/24/2023 until 12/24/2024 End: 12-24-2024 Comprehensive metabolic 2000 panel - Serum or Plasma Comprehensive metabolic panel Lab Routine Left thigh pain Numbness and tingling of left leg 1 Occurrences starting 12/24/2023 until 12/24/2024 [facility] Comment on above: 1 Occurrences starti ng 12/24/2023 until 12/24/2024 End: 12-24-2024 Cyanocobalamin vitamin b-12 Vitamin B12 Lab Routine Left thigh pain Numbness and tingling of left leg 1 Occurrences starting 12/24/2023 until 12/24/2024 [facility] Comment on above: 1 Occurrences starti ng 12/24/2023 until 12/24/2024 End: 12-24-2024 Lipid 1996 panel - Serum or Plasma Lipid profile Lab Routine Left thigh pain Numbness and tingling of left leg Lipid screening 1 Occurrences starting 12/24/2023 until 12/24/20[facility] above: 1 Occurrences starti ng 12/24/2023 until 12/24/2024 End: 12-24-2024 Thyroid profile includes TSH FT4 Thyroid profile includes TSH FT4 Lab Routine Left thigh pain Numbness and tingling of left leg 1 Occurrences starting 12/24/2023 until 12/24/2024 [facility] Comment on above: 1 Occurrences starti ng 12/24/2023 until 12/24/2024 Payers Date Payer Category Payer Self-pay 2022 [employer] Blue [employer] Managed Care - Other [facility] [id number] 2022 Unknown [facility] HMO/PPO/TRUST [id number] 2022-Present [phone] [address] [place] [address] [id number] 1978 Unknown [id number] 2.16.840.1.794142.3.57 9.2.593 1978 Unknown [id number] 2.16.840.1.428065.3.57 9.2.1286 1978 Unknown [id number] 2.16.840.1.217722.3.57 9.2.1286 1978 Unknown [id number] 2.16.840.1.046220.3.57 9.2.1286 1978 Unknown [id number] 2.16.840.1.097018.3.57 9.2.1286 1978 Unknown [id number] 2.16.840.1.692697.3.57 9.2.1286 1978 Unknown [id number] 2.16.840.1.567863.3.57 9.2.1286 1978 Unknown [id number] 2.16.840.1.219710.3.57 9.2.1285 1978 Unknown [id number] 2.16.840.1.500987.3.57 9.2.1285 1978 Unknown [id number] 2.840.1.414899.3.57 9.2.1285 1978 Unknown [id number] 2.840.1.346887.3.57 9.2.128 1978 Unknown [id number] 2.840.1.086936.3.57 9.2.1285 1978 Unknown [id number] 2.840.1.895401.3.57 9.2.1285 1978 Unknown [id number] 2.840.1.669355.3.57 9.2.1285 1978 Unknown [id number] 2.840.1.397950.3.57 9.2.1285 1978 Unknown [id number] 2.840.1.242607.3.57 9.2.1285 1978 Unknown [id number] 2.840.1.803978.3.57 9.2.1285 1978 Unknown [id number] 2840.1.169117.3.57 9.2.1285 1978 Unknown [id number] 2.840.1.141694.3.57 9.2.128 1978 Unknown [id number] 2.840.1.935447.3.57 9.2.1285 1978 Unknown [id number] 2.16840.1.291586.3.57 9.2.1285 1978 Unknown [id number] 2.840.1.305416.3.57 9.2.1285 1978 Unknown [id number] .16.840.1.844414.3.57 9.2.1286 1978 Unknown [id number] 2.16.840.1.869921.3.57 9.2.1286 1978 Unknown [id number] 2.16.840.1.926104.3.57 9.2.1286 1978 Unknown [id number] 2.16.840.1.747033.3.57 9.2.1286 1978 Unknown [id number] 2.16.840.1.720230.3.57 9.2.1286 1978 Unknown [id number] 2.16.840.1.657798.3.57 9.2.1286 1978 Unknown [id number] 2.16.840.1.370186.3.57 9.2.1286 1959 Unknown [id number] 1959 Unknown [id number] Unknown [id number] 2.16.840.1.835385.3.57 9.2.531 Unknown [id number] 2.16.840.1.935507.3.57 9.2.531 Social History Date Type Detail Facility Unknown if ever smoked [employer] Other Start: 12-28-2020 End: 12-24-2023 Sex Assigned At [facility] Start: 07-21-2018 End: 04-18-2023 Tobacco smoking status WVIS Ex-smoker [facility] History of tobacco use Current smoker [facility] Start: 04-18-2023 Tobacco use and exposure Smokeless tobacco non-user [facility] Start: 12-24-2023 End: 05-12-2024 Alcohol intake Ex-drinker (finding) [facility] Start: 12-28-2020 End: 12-24-2023 History of Social function [facility] How hard is it for y ou to pay for the very basics like food, housing, medical care, and heating Not hard at all [facility] Start: 04-18-2023 Tobacco Comment quit 25 years ago [facility] Start: 1980 [facility] 10-11-2018 Gender identity Identifies as female gender (finding) [facility] Start: 06-08-2021 Sexual orientation Heterosexual (finding) [facility] Start: 10-04-2024 Sex Patient sex unknown (finding) [facility] Start: 06-22-2015 Sex Female (finding) [facility] [employer] [facility] Clinical Notes 06-19-2022 to 11-30-2024 Telephone Encounter - Graciela Gautam CMA - 11/30/2024 2:18 PM ESTTelephone Encounter - LAKEISHA Lutz - 11/30/2024 2:18 PM LAKEISHA Montoya - 02/17/2024 11:15 AM EDT Note Date & Type Note Facility 11-30-2024 Miscellaneous Notes Patient called stating that she is needing to come in and be seen due to her being sick. Expressed that she has been to urgent care many times as well as the ER but would like to get in and see PCP. I offered her soonest which would be 12/01. Ivy stated she is unable to come in unless it is on 12/06 or 12/08. Informed patient of full schedule and the other providers being Out of Office. Informed her of Same Day appointments she could try and make on those two days. Ivy was verbally upset and stated she was looking to be looking for a new PCP. Please advise? Are there any sick appointments for those days, that she could call that day ? Patient was offered same day. Did not want to call back next week. documented in this encounter [facility] 11-30-2024 Telephone encounter Note Patient called stating that she is needing to come in and be seen due to her being sick. Expressed that she has been to urgent care many times as well as the ER but would like to get in and see PCP. I offered her soonest which would be 12/01. Ivy stated she is unable to come in unless it is on 12/06 or 12/08. Informed patient of full schedule and the other providers being Out of Office. Informed her of Same Day appointments she could try and make on those two days. Ivy was verbally upset and stated she was looking to be looking for a new PCP. Please advise[facility] Telephone encounter Note Are there any sick appointments for those days, that she could call that day ? [facility] 11-30-2024 Telephone encounter Note Patient was offered same day. Did not want to call back next week. [facility] 02-17-2024 History of Presen t illness Narrative Subjective Patient ID: Ivy Tracey is a 43 y.o. female. VASILIY Shepherd presents to the office for ED follow up. She was seen at [facility] ED on 02/03/2024 for vomiting, diarrhea, and abdominal pain. She was diagnosed with gastroenteritis and was discharged to home in stable condition with dicyclomine, pepcid, and zofran. She reports she does not need refills at this time as she still has zofran at home, and her nausea and vomiting has improved. She reports she was vomiting for about a week and a half prior to that ED visit. She reports the diarrhea finally stopped four days ago, and is now having constipation. She reports she had blood in her stools and had black tarry stools. She reports she has a history of stomach ulcers. She states she continues with abdominal pain. She reports she attempted to call Dr. Lomeli' office as she saw him in the past, but states she was told she needs a new referral as she has not follow up in a few years. Last colonoscopy was 02/2020 and revealed diverticulosis and polyp. She had an EGD on 05/31/2021 which revealed gastric ulcers. She has been taking probiotic. Ivy reports she has been sick with a cough since December 19 that will not go away. Denies fever, but reports she has a runny nose, post nasal drip, and is coughing up phlegm. She would like her lungs evaluated. Also, Ivy reports that she tripped over her cats and injured her left ankle. She reports she was seen at [facility] ED on 01/18 and 01/19 d/t this pain. Xray was completed on 01/18 and indicated no fracture, but showed soft tissue swelling adjacent to lateral malleolus and small joint effusion. She reports she continues to have a lot of pain and cannot put too much pressure when she walks. She continues to wear an alex wrap to her ankle. She has been taking the ibuprofen, but continues with pain. She would be agreeable to try physical therapy to assist with pain control. The following portions of the patient's history were reviewed and updated as appropriate: allergies, current medications, past family history, past medical history, past social history, past surgical history, problem list, and medication reconciliation was completed including current medication and post discharge medication. Review of Systems Constitutional: Negative for chills, diaphoresis, fatigue, fever and unexpected weight change. HENT: Positive for congestion, postnasal drip, rhinorrhea and sinus pressure. Eyes: Negative. Respiratory: Positive for cough. Negative for chest tightness, shortness of breath and wheezing. Cardiovascular: Negative for chest pain, palpitations and leg swelling. Gastrointestinal: Positive for abdominal pain, blood in stool and constipation. Negative for diarrhea, nausea and vomiting. Endocrine: Negative for polydipsia, polyphagia and polyuria. Genitourinary: Negative for difficulty urinating, frequency, hematuria and urgency. Musculoskeletal: Positive for gait problem and joint swelling. Negative for arthralgias and neck pain. Skin: Negative. Neurological: Negative for dizziness, syncope, weakness, light-headedness, numbness and headaches. Psychiatric/Behavioral: Negative for self-injury and suicidal ideas. Objective Physical Exam Vitals and nursing note reviewed. Constitutional: Appearance: Normal appearance. HENT: Head: Normocephalic and atraumatic. Nose: Congestion and rhinorrhea present. Mouth/Throat: Pharynx: No oropharyngeal exudate or posterior oropharyngeal erythema. Eyes: Extraocular Movements: Extraocular movements intact. Pupils: Pupils are equal, round, and reactive to light. Neck: Vascular: No carotid bruit. Cardiovascular: Rate and Rhythm: Normal rate and regular rhythm. Pulses: Normal pulses. Heart sounds: Normal heart sounds. No murmur heard. Pulmonary: Effort: Pulmonary effort is normal. Breath sounds: Normal breath sounds. Abdominal: General: Bowel sounds are normal. There is no distension. Palpations: Abdomen is soft. There is no mass. Tenderness: There is abdominal tenderness. There is no right CVA tenderness, left CVA tenderness, guarding or rebound. Hernia: No hernia is present. Comments: LLQ tenderness. Musculoskeletal: Cervical back: Normal range of motion and neck supple. No rigidity or tenderness. Comments: Left ankle is wrapped with alex warp. She has a limp with her walk Lymphadenopathy: Cervical: No cervical adenopathy. Skin: Capillary Refill: Capillary refill takes less than 2 seconds. Findings: No erythema or rash. Neurological: General: No focal deficit present. Mental Status: She is alert and oriented to person, place, and time. Psychiatric: Mood and Affect: Mood normal. Behavior: Behavior normal. Assessment/Plan Declined stool check today, she will follow with Dr. Lomeli. Recommend she take tylenol for arthralgic pain PRN, as it is possible she could have gastric ulcer. In the mean time she will take pepcid BID. She is agreeable to physical therapy for ankle pain. She can take mucinex and flonase for cough and nasal congestion. She will let me know if symptoms do not improve. Work note provided. [facility] [employer] [facility] paperwork to be completed for missed work and for ongoing ankle pain. Ivy was seen today for vomiting. Diagnoses and all orders for this visit: Blood in stool Black tarry stools - [facility] [place], [place]; Future History of stomach ulcers - [facility] [place], [place]; Future Sprain of left ankle, unspecified ligament, subsequent encounter - Ambulatory referral to Physical Therapy; Future Left lower quadrant abdominal pain Other orders - fluticasone propionate (FLONASE) 50 mcg/actuation nasal spray; Administer 2 sprays into each nostril in the morning. - cetirizine (ZyrTEC) 10 mg tablet; Take 1 tablet (10 mg total) by mouth in the morning. - guaiFENesin (MUCINEX) 600 mg tablet extended release 12hr; Take 1 tablet (600 mg total) by mouth every 12 (twelve) hours for 7 days. - famotidine (PEPCID) 20 mg tablet; Take 1 tablet (20 mg total) by mouth in the morning and 1 tablet (20 mg total) before bedtime. Do all this for 30 days. LAKEISHA Padilla 02/22/[id number] documented in this encounter [facility] [employer] [facility] 01-08-2024 History of Presen t illness Narrative Subjective Ivy Tracey is a 43 y.o.female. No LMP recorded. (Menstrual status: IUD).. She presents with c/o bilateral breast pain but more so on the left side. Pt had a normal mammogram in April 2023. Pt states she has very minimal caffeine intake. Current contraception: Mirena IUD placed 05/29/23 Regular self breast exam: yes Last mammogram: April 30, 2023 Family history of breast cancer: yes Recent covid vaccination: no Menstrual History: OB History 4 Para 4 Term 4 AB Living 4 SAB IAB Ectopic Multiple Live Births 4 The following portions of the patient's history were reviewed and updated as appropriate: allergies, current medications, past family history, past medical history, past social history, past surgical history and problem list. Review of Systems Pertinent items are noted in HPI, otherwise negative. Objective Vitals: 01/08/24 0817 BP: 122/78 Body mass index is 39.53 kg/m . General: alert, appears stated age and cooperative Breast: Both breasts examined in standing, sitting and supine position. Breasts symmetric, pendulous, with normal appearance. Normal to palpation without dominant masses. No nipple retraction, dimpling, discharge or bleeding. Left breast has tenderness with palpation directly below the nipple and at the top left border of breast. No axillary or supraclavicular adenopathy, Skin: Skin color, texture, turgor normal. No rashes or lesions Assessment/Plan: Ivy was seen today for breast problem. Diagnoses and all orders for this visit: Breast pain in - Mammography diagnostic bilateral with CAD; Future - Ultrasound breast limited bilateral; Future Family history of breast cancer - Mammography diagnostic bilateral with CAD; Future - Ultrasound breast limited bilateral; Future Await imaging. Discussed SBE. Discussed heat / cool packs, tylenol / motrin, well-fitting bra for discomfort. Questions answered. Educational material provided. RTO for annual (due April 2024) or sooner as needed. - LAKEISHA Owens 01/08/24 8:40 AM WARNER Hoffman APRN-CNP 01/08/24 0842 documented in this encounter [facility] 01-07-2024 History of Presen t illness Narrative [facility] [address] [place] [place] [address] Patient: Ivy Tracey Sex: female : 1980 Age: 43 y.o. PCP: LAKEISHA LUTZ 01/07/2024 Ivy Tracey is here for a(n) . Pain is post procedure follow up 11/28/2023 right then 12/12/2023 left T 12/L1 L1/2 radiofrequency ablation with 100% relief. Patient denies pain to this area today. Pre-procedural pain was reported as 5/10. Pain is now to lower lumbar. Chief Complaint Patient presents with Back Pain HPI: PT 2017 w/ no relief. 06/13/2023 bilateral T12/L1, L1/2 Medial Branch Block with 85% relief and improved physical functioning. Bilateral T 12/1, 1/2 medial branch block on 08/01/2023 with 100% relief . 11/28/2023 right then 12/12/2023 left T 12/L1 L1/2 radiofrequency ablation with 100% relief. Patient denies pain to this area today. Pre-procedural pain was reported as 5/10 Back Pain This is a chronic problem. The current episode started more than 1 year ago. The problem occurs daily (to lower lumbar). The problem has been gradually improving (thoracic and upper lumbar has resolved.) since onset. The pain is present in the lumbar spine (lower lumbar). The quality of the pain is described as aching. Radiates to: lateral LLE hip to knee with tactile stimulation onset 09/2023. The pain is at a severity of 1/10 (1/10 to lower lumbar that goes up to 4/10 with bending on her job). The pain is mild. The pain is The same all the time. The symptoms are aggravated by position, twisting, standing, lying down, sitting, stress and coughing (sitting, standing, walking, stairs, bending, lying, twisting, heat, cold). Stiffness is present: n/a. Associated symptoms include leg pain (lateral aspect of LLE with tactile stim). Pertinent negatives include no bladder incontinence, bowel incontinence, chest pain, fever, numbness, tingling or weakness. Risk factors include sedentary lifestyle and obesity. She has tried analgesics, chiropractic manipulation, heat, ice, home exercises and NSAIDs (PT 2017 w/ no relief. TENS unit helps at times, heat, ice w/ no relief, toradol w/ temporary relief, robaxin w/ mild relief, HEP, naproxen) for the symptoms. The treatment provided mild relief. The effect of pain on patient's ADLS: Moderate Impairment. Past Medical History: Diagnosis Date Allergic Back pain COVID 10/23/2023 Dental disease Inflammatory bowel disease December 2019 IUD (intrauterine device) in place Low back pain Sciatica Stomach ulcer Varicella I was a year old Visual impairment Past Surgical History: Procedure Laterality Date BLADDER SURGERY enlargement COLONOSCOPY N/A 02/22/2020 Performed by Javy Lomeli DO at [facility] D AND C HYSTEROSCOPY WITH MYOSURE N/A 11/11/2018 Performed by Kurt Wong MD at [facility] DILATION AND CURETTAGE OF UTERUS 1999 ESOPHAGOGASTRODUODENOSCOPY N/A 05/31/2021 Performed by Javy Lomeli DO at [facility] INJECTION BLOCK NERVE MEDIAL BRANCH Bilat T 12, 1 Bilateral 08/01/2023 Performed by Brennen Beckford MD at [facility] INJECTION BLOCK NERVE MEDIAL BRANCH Bilat T 12/, 1/ Bilateral 06/13/2023 Performed by Brennen Beckford MD at [facility] INJECTION MEDIAL BRANCH NERVE BLOCK: right T12/L1 12 23mbb Right 12/08/2017 Performed by Brennen Beckford MD at [facility] INJECTION SACROILIAC NERVE- Right SI joint injection X 2 (1 of 2) Right 04/21/2017 Performed by Brennen Beckford MD at [facility] INJECTION SI JOINT 2 OF 2 Right 05/05/2017 Performed by Brennen Beckford MD at [facility] RADIOFREQUENCY ABLATION SPINAL Right T 12, 11/18 Right 11/28/2023 Performed by Brennen Beckford MD at [facility] RADIOFREQUENCY ABLATION SPINAL Left T 12, 11/18 Left 12/12/2023 Performed by Brennen Beckford MD at [facility] TUBAL LIGATION 2004 Allergies Allergen Reactions Tylenol-Codeine #3 [Acetaminophen-Codeine] Nausea Family History Problem Relation Age of Onset Heart disease Father Lung disease Father Breast cancer Paternal Aunt 40 Cancer Maternal Grandmother Breast cancer Maternal Grandmother Social History Socioeconomic History Marital status: Spouse name: Not on file Number of children: Not on file Years of education: Not on file Highest education level: Not on file Occupational History Not on file Tobacco Use Smoking status: Former Smokeless tobacco: Never Tobacco comments: quit 25 years ago Vaping Use Vaping Use: Never used Substance and Sexual Activity Alcohol use: Not Currently Drug use: No Sexual activity: Defer Partners: Male control/protection: Surgical, I.U.D. Comment: tubal ligation-last time was 3-4 months Other Topics Concern Not on file Social History Narrative Not on file Social Determinants of Health Financial Resource Strain: Low Risk (12/22/2023) Overall Financial Resource Strain (CARDIA) Difficulty of Paying Living Expenses: Not hard at all Food Insecurity: No Food Insecurity (01/07/2024) Hunger Screening Food Insecurity - Worry: Never True Food Insecurity - Inability: Never True Transportation Needs: No Transportation Needs (12/22/2023) PRAPARE - Transportation Lack of Transportation (Medical): No Lack of Transportation (Non-Medical): No Physical Activity: Not on file Stress: Not on file Social Connections: Not on file Interpersonal Safety: Not on file Housing Instability: Low Risk (12/22/2023) Housing Instability Housing Instability: No Review of Systems Constitutional: Negative for fever. HENT: Positive for dental problem. Negative for congestion. Respiratory: Negative for cough and shortness of breath. Cardiovascular: Negative for chest pain. Gastrointestinal: Negative for bowel incontinence, constipation and diarrhea. Genitourinary: Negative for bladder incontinence, difficulty urinating and frequency. Musculoskeletal: Positive for back pain. Skin: Negative for color change. Neurological: Negative for tingling, weakness and numbness. Psychiatric/Behavioral: Negative. Vital Signs: BP 132/88 Pulse 82 Resp 18 Ht 172.7 cm (5' 8 ) Wt 117.9 kg (260 lb) SpO2 99% BMI 39.53 kg/m Physical Exam: GENERAL - Healthy patient that appears stated age. HEENT - Normocephalic / Atraumatic, Extraoccular movements intact, trachea midline, thyroid within normal limits. CV - pulse regular, Warm extremities with appropriate color of nailbeds. RESP - No obvious wheezing, No Shortness of Breath, No overexertion response to exam maneuvers. COORDINATION - remains intact. PSYCH - Alert and Oriented x4, Attentive and appropriate, constitutionally normal, displays normal mood and affect per situation, answered questions appropriately during examination, demonstrated appropriate attention during discussion, demonstrated appropriate cognitive reasoning and understanding of the medical condition by asking appropriate questions regarding the diagnosis and risks/benefits/alternatives of treatment modalities. No obvious deficits in memory, reasoning, or intellect. Thoracic: SKIN - No rashes or bruising in the area of the patient s pain. LYMPH NODES - demonstrate no obvious enlargement. COORDINATION remains intact. EXTREMITIES - Extremities are warm, with minimal edema and palpable pulses. No Significant tenderness to palpation noted in the thoracic spine and paraspinal musculature. Mild pain is elicited with flexion, extension, and lateral rotation of the thoracic spine. Range of motion is not diminished with these motions. Facet palpation is negative for significant pain and facet loading maneuvers elicit only mild pain that is not concordant with the patient s normal pain complaints. STRENGTH - noted to be 5 out of 5 all muscle groups bilateral upper and lower extremities. No notable atrophy, fasciculations or spasm. SENSORY - No notable sensory deficits in the thoracic dermatomal distributions to touch or pinprick Lumbar: SKIN - No rashes or bruising in the area of the patient s pain. LYMPH NODES - demonstrate no obvious enlargement. EXTREMITIES - Lower extremities are warm, with minimal edema and palpable pulses. Tenderness to palpation noted in the lumbar spine and paraspinal musculature. Pain is elicited with flexion, extension, and lateral rotation of the lumbar spine. Range of motion is diminished with these motions due to pain. Facet palpation is noted to be painful and facet loading maneuvers elicit pain that is concordant with the patient s normal pain complaints. Some muscle spasm is noted in the overlying musculature. STRENGTH - noted to be 5 out of 5 all muscle groups bilateral lower extremities including muscles involving hip flexion and abduction, knee flexion and extension, as well as foot dorsiflexion and plantarflexion. No notable atrophy, fasciculations or spasm. SENSORY - No notable sensory deficits in the bilateral lower extremities to touch or pinprick in all dermatomal distributions. Straight Leg Raise is negative bilaterally. Gait is normal. Assessment/Treatment Plan: Ivy was seen today for back pain. Diagnoses and all orders for this visit: Thoracic spondylosis without myelopathy Monitor Follow up 4 months The medications prescribed have been reviewed for medication interactions/contraindications and/or for upcoming procedures: continue current medication regimen without any changes. DISCUSSION: Treatment options discussed with patient and all questions answered to patient's satisfaction. Discussed the rules and regulations surrounding prescription of opioids and compliance at length. Failure to follow the rules and regulation will result in tapering and discontinuation of medications if applicable. Prescribed medication that requires intensive monitoring for toxicity We do not currently prescribe any controlled substance from this practice. It does appear that the patient benefited from the previous injection and the benefit has continued through this visit. At this time, we will monitor the patient s symptoms from an interventional standpoint and consider another injection in the future if the patient s symptoms return or intensify severely. The patient was made aware that they should call if symptoms worsen or if their pain begins to have a negative impact on their quality of life and activities of daily living again. The spine model was demonstrated and Xray and MRI was reviewed and used to explain the condition. Chronic conditions not treated during this visit that affected my overall medical decision making: Obesity OARRS: Reviewed. Scribe Statement: Scribed for and in the presence of DENAE ALBERTO PA-C by Fanny Le CNA. Provider Statement: I, DENAE ALBERTO PA-C, personally performed the services described in the documentation, as scribed by Fanny Le CNA in my presence, and it is both accurate and complete. Fanny Le CNA 01/07/24 1509 Denae Alberto PA-C 01/07/24 1521 documented in this encounter [facility] 12-24-2023 History of Presen t illness Narrative Subjective CC: establish care/left thigh/hip pain Patient ID: Ivy Tracey is a 43 y.o. female. Leg Pain Ivy presents as a new patient to establish care. He spouse accompanies her today. Main reason she is here today is concern for right upper thigh pain. This has been on-going since June. 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 States her thigh swells, and is obvious through her jeans. The area is very tender, she describes this as an ache or throbbing sensation. She has not tried anything topical, stating when its uncomfortable at work she will put her TENS unit on, which does help temporarily. She also achieves temporary relief with use of Naproxen and tylenol. Relates her thigh pain, wakes her up at night. She relates following at the ED on 10/21/2024, and had a left knee x-ray, which was normal. She follows with Dr. Beckford at pain management for back pain, and recently had an ablation. She was a previous patient of Dr. Fajardo who retired. The following portions of the patient's history were reviewed and updated as appropriate: allergies, current medications, past family history, past medical history, past social history, past surgical history, problem list, and medication reconciliation was completed including current medication and post discharge medication. Review of Systems Constitutional: Negative. HENT: Positive for dental problem. Eyes: Negative. Respiratory: Negative. Cardiovascular: Negative. Gastrointestinal: Negative. Musculoskeletal: Positive for gait problem and myalgias. Skin: Negative. Hematological: Negative. Psychiatric/Behavioral: Negative. Objective Physical Exam Vitals and nursing note reviewed. Constitutional: Appearance: Normal appearance. She is well-developed. Comments: BMI 39.75 HENT: Head: Normocephalic and atraumatic. Right Ear: Hearing, tympanic membrane, ear canal and external ear normal. Left Ear: Hearing, tympanic membrane, ear canal and external ear normal. Nose: Rhinorrhea present. Mouth/Throat: Lips: [place]. Mouth: Mucous membranes are moist. Dentition: Abnormal dentition. Dental caries present. Pharynx: Oropharynx is clear. Uvula midline. No oropharyngeal exudate. Eyes: General: Lids are normal. Extraocular Movements: Extraocular movements intact. Conjunctiva/sclera: Conjunctivae normal. Pupils: Pupils are equal, round, and reactive to light. Cardiovascular: Rate and Rhythm: Normal rate and regular rhythm. Pulses: Normal pulses. Heart sounds: Normal heart sounds. Pulmonary: Effort: Pulmonary effort is normal. Breath sounds: Normal breath sounds and air entry. No wheezing. Chest: Chest wall: No tenderness. Abdominal: General: Bowel sounds are normal. There is no distension. Palpations: Abdomen is soft. Tenderness: There is no abdominal tenderness. Musculoskeletal: General: Normal range of motion. Cervical back: Normal range of motion and neck supple. Lymphadenopathy: Cervical: No cervical adenopathy. Skin: General: Skin is warm and dry. Neurological: General: No focal deficit present. Mental Status: She is alert and oriented to person, place, and time. Psychiatric: Mood and Affect: Mood normal. Behavior: Behavior normal. Assessment/Plan New patient with left thigh/hip discomfort for the past 6 months. Will order x-ray of left hip and femur, along with routine labs. May need MRI or EMG of lower extremities in the future. X-ray left hip and femur Obtain CBC, CMP, Lipid/thyroid profile, vitamin B 12 May need MRI in the future or EMG of lower extremities Recommend follow up in 6 weeks Ivy was seen today for establish care and leg pain. Diagnoses and all orders for this visit: Left thigh pain - CBC auto differential; Future - Comprehensive metabolic panel; Future - Lipid profile; Future - Thyroid profile includes TSH FT4; Future - Vitamin B12; Future - X-ray hip left 2-3 views with or without pelvis; Future - X-ray femur left 2+ views; Future Numbness and tingling of left leg - CBC auto differential; Future - Comprehensive metabolic panel; Future - Lipid profile; Future - Thyroid profile includes TSH FT4; Future - Vitamin B12; Future - X-ray hip left 2-3 views with or without pelvis; Future - X-ray femur left 2+ views; Future Lipid screening - Lipid profile; Future LAKEISHA Lutz 12/24/23 1535 documented in this encounter [facility] 06-19-2022 Evaluation note Encounter Date Diagnosis Assessment Notes Jun, Sore throat (ICD-10 - J02.9) Jun, Viral upper respiratory illness (ICD-10 - J06.9) Drink plenty fluids, get plenty of rest. Take Tylenol or Motrin for aches pains or fevers. Follow-up with your family physician if no improvement in 2 to 3 days., Viral upper respiratory infection: adult home care material was printed [employer] Other Evaluation noteNo [employer] Other Evaluation note* Diagnosis Left thigh pain- Primary Pain in soft tissues of limb Numbness and tingling of left leg Disturbance of skin sensation Lipid screening Screening for lipoid disorders [facility] Thoracic spondylosis without myelopathy- Primary [facility] Diagnosis Breast pain in - Primary Family history of breast cancer Family history of malignant neoplasm of breast documented in this encounter [facility] [employer] [facility] Breast pain- Primary Mastodynia Family history of breast cancer Family history of malignant neoplasm of breast [facility] Diagnosis Blood in stool- Primary Black tarry stools History of stomach ulcers Sprain of left ankle, unspecified ligament, subsequent encounter Left lower quadrant abdominal pain [facility] information available [facility] Work Phone: History general Narrative - Reported* Type Description Date Medical History back pain Medical History stomach ulcer Medical History diverticulitis Surgical History bladder surgery 1991 Surgical History D & C 1999 Surgical History tubes tied 2003 Hospitalization History see above Hospitalization History sinus infection [employer] Other Instructions* Attachments The following attachments cannot be sent through Care Everywhere. * Hip Pain (Icelandic) documented in [facility] SystemInstructionsNot on file documented in this encounterProOhiohealth [facility] SystemInstructions* Attachments The following attachments cannot be sent through Care Everywhere. * Mastalgia (Icelandic) documented in this encounterProOhio[facility] SystemInstructionsNot on file documented in this encounterProOhiohealth [facility] SystemInstructionsNot on file documented in this encounterProOhiohealth [facility] Summary Purpose Family History Relationship Condition Age at Onset Recorded Date/T mandeep mother Diabetes mellitus Unknown Advance Directives Advance Directive Response Recorded Date/ Time Advance Directives No December 1:10pm Reason for Referral Specialty Diagnoses / Procedures Referred By Mayank miguel Referred To Contact Rehabilitation Diagnoses Sprain of left ankle, unspecified ligament, subsequent encounter Garrison Temple APRN-INVESTMENT FUND MANAGER [address] [place] [phone] [facility] [address] [place] [address] Referral ID Status Reason Start Date Expiration Date Visits Requested Visits Authorized [id number] Authorized Specialty Services Required 02/17/2024 08/18/2024 12 12 Specialty Diagnoses / Procedures Referred By Mayank miguel Referred To Contact General Surgery Diagnoses Black tarry stools History of stomach ulcers Garrison Temple APRN-INVESTMENT FUND MANAGER [address] [place] [phone] [facility] Gen Surg Grillis Tadeo [address] [place] [address] Referral ID Status Reason Start Date Expiration Date Visits Requested Visits Authorized [id number] Authorized Specialty Services Required 02/17/2024 02/16/2025 1 1 Chief Complaint and Reason for Visit Chief Complaint Admit Date cough x 3 weeks October 03, 2024 12:19pm R06.2 - Wheezing October 03, 2024 1:45pm Additional Source Comments INFORMATION SOURCE (unrecogn ized section and content) DATE CREATED AUTHOR 08/19/2021 [facility] DATE CREATED AUTHOR AUTHOR'S ORGANIZ ATION 03/12/2024 [facility] DATE CREATED AUTHOR AUTHOR'S ORGANIZ ATION 04/18/2024 [facility] DATE CREATED AUTHOR AUTHOR'S ORGANIZ ATION 11/08/2024 [facility] REASON FOR VISIT (unrecogniz ed section and content) Reason Comments Establish Care Leg Pain Left side Reason Comments Back Pain Reason Comments Breast Problem Pt c/o bilateral mattie ast pain. 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 Specialty Start Date End Date [facility] [address], [facility] [place] [address] PCP - General Family Medicine 12/24/23 [employer] Relationship Specialty Start Date End Date Meagan [facility] [address], [facility] [place] [address] PCP - General Family Medicine 12/24/23 Team Status: Active Member Role Status Dates PHYSICIAN NO FAMILY Primary Care Provider Active Team Status: Inactive Member Role Status Dates PHYSICIAN NO FAMILY Primary Care Provider Active Start: October 03, 2024 End: October 03, 2024 Alea Hurd APRN Attending Provider Active Start: October 03, 2024 End: October 03, 2024 Goals (unrecognized section and content) Goals may be documented in a n alternate section FOR RECORDS PERTAINING TO PATIENTS WHO ARE OR HAVE BEEN ENROLLED IN A CHEMICAL DEPENDENCY/SUBSTANCEABUSE PROGRAM, SOME INFORMATION MAY BE OMITTED. This clinical summary was aggregated from multiple sources. Caution should be exercised in using it in the provision of clinical care. This summary normalizes information from multiple sources, and as a consequence, information in this document may materially change the coding, format and clinical context of patient data. In addition, data may be omitted in some cases. CLINICAL DECISIONS SHOULD BE BASED ON THE PRIMARY CLINICAL RECORDS. [facility] [employer] [facility]. provides no warranty or guarantee of the accuracy or completeness of information in this document.
[2024-12-08 08:04] LABS: Basophils Absolute Auto 0.1 10^3/uL (0.0-0.1); Basophils Percent Auto 1.1 % (0.2-2.0); Eosinophils Absolute Auto 0.7 10^3/uL (0.0-0.7); Hematocrit 41.9 % (36.0-48.0); Hemoglobin 13.9 g/dL (12.0-16.0); Immature Granulocytes Abs Auto 0.01 10^3/uL (0.00-0.03); Immature Granulocytes Pct Auto 0.1 % (0.0-0.5); Lymphocytes Absolute Auto 2.4 10^3/uL (1.2-3.8); Lymphocytes Percent Auto 32.6 % (20.5-60.0); Mean Corpuscular HGB Conc 33.2 g/dL (29.9-35.2); Mean Corpuscular Hemoglobin 32.1 pg (26.7-34.0); Mean Corpuscular Volume 96.8 fL (81.0-99.0); Mean Platelet Volume 8.9 fL (9.5-13.5); Monocytes Absolute Auto 0.7 10^3/uL (0.3-0.8); Monocytes Percent Auto 9.5 % (1.7-12.0); Neutrophils Absolute Auto 3.4 10^3/uL (1.4-6.5); Neutrophils Percent Auto 46.7 % (43.0-75.0); Platelet Count 305 10^3/uL (150-450); Red Blood Count 4.33 10^6/uL (4.20-5.40); Red Cell Distribution Width 13.3 % (11.0-15.0); White Blood Count 7.3 10^3/uL (4.0-11.0)
[2024-12-08] MEDS: DIAZEPAM 10 MG/2 ML SYRINGE 2 MG IV (08:10)
[2024-12-08 08:21] LABS: D Dimer 0.27 mg/L FEU (<=0.59)
[2024-12-08 08:23] LABS: Alanine Aminotransferase 27 U/L (14-59); Albumin Globulin Ratio 1.1; Albumin Level 3.6 g/dL (3.4-5.0); Alkaline Phosphatase 63 U/L (46-116); Anion Gap 13.6; Aspartate Amino Transferase 16 U/L (15-37); BUN Creatinine Ratio 16.9; Bilirubin Total 0.8 mg/dL (0.2-1.0); Calcium 8.7 mg/dL (8.5-10.1); Carbon Dioxide 25.8 mmol/L (21.0-32.0); Chloride 106 mmol/L (98-107); Estimated GFR (African America >60 (>=60 mL/min/1.73m^2); Estimated GFR (Non-African Ame >60 (>=60 mL/min/1.73m^2); Globulin 3.3 g/dL; Glucose 97 mg/dL (74-106); Potassium 4.4 mmol/L (3.5-5.1); Sodium 141 mmol/L (136-145); Total Protein 6.9 g/dL (6.4-8.2); Troponin I High Sensitivity <4.0 pg/mL (4.0-51.3)
[2024-12-08 08:26] VITALS: BP 140/80; PULSE 84
--- NOTE | 2024-12-08 08:33 | XR_ITS ---
The [address] [address] Patient Name: IVY TRACEY MRN: [id number] date: 1980 Sex: F Assigned Patient Location: ER Current Patient Location: ER Accession/Order Number: [id number] Exam Date: 12/08/2024 08:40 Report Date: 12/08/2024 09:05 At the request of: JOSE ANTONIO CAMARGO Procedure: XR chest 2V EXAM: XR chest 2V HISTORY: cough COMPARISON: Chest radiograph dated 04/09/2020 and CTA chest examination dated 11/18/2024. TECHNIQUE: PA and lateral views of the chest performed. FINDINGS: The trachea is midline. The cardiomediastinal silhouette and hilar shadows are stable and unremarkable. There are increased interstitial markings and peribronchial cuffing within both hilar and infrahilar regions can be associated with a bronchitis. There is no consolidation, pleural effusion or pulmonary vascular congestion. There is no pneumothorax. There is a healing or healed fracture of the right sixth rib which was acute on the CT chest examination dated 07/19/2025. XR/XR chest 2V IMPRESSION: There are increased interstitial markings and peribronchial cuffing within both hilar and infrahilar regions can be associated with a bronchitis. . There is a healing or healed fracture of the right sixth rib which was acute on the CT chest examination dated 07/19/2025. Electronically authenticated by: ARTURO MACEDO Date: 12/08/2024 09:05
[2024-12-08 08:35] LABS: Influenza Virus A Antigen Negative; Influenza Virus B Antigen Negative; Internal Control Within Normal Limits; SARS-CoV-2 Ag NEGATIVE (NEGATIVE)
--- NOTE | 2024-12-08 09:00 | ED_ITS ---
HPI HPI - General Adult General Chief complaint: Chest Pain Stated complaint: CHEST PAINS COUGHING Time Seen by Provider: 12/08/24 07:42 Mode of arrival: walk-in History of Present Illness HPI narrative: Patient presents to ED complaining of chest pain and cough. She was recently diagnosed with pneumonia on November 17 and had a round of antibiotics and steroids. She said it did get better but now it is worse again. She said she has actually had this cough for about 3 months. Patient states she has also been to the urgent care twice and she has had 3 rounds of antibiotics and steroids and states that she is not getting better. No fever no nausea vomiting. She is anxious and tearful. She states the muscle relaxer is not working at home. She denies any history of depression or anxiety. She denies any chronic medical problems or daily medications. She denies any leg pain or swelling. No abdominal pain. Related Data Home Medications ?Medication ?Instructions ?Recorded ?Confirmed albuterol sulfate 90 mcg/actuation 2 puff inhalation Q6H PRN 11/17/24 12/08/24 aerosol inhaler shortness of breath or wheezing Previous Rx's ?Medication ?Instructions ?Recorded albuterol sulfate 90 mcg/actuation 1 inh inhalation Q6H PRN shortness 12/08/24 aerosol inhaler of breath or wheezing #8.5 grams methylprednisolone 4 mg tablets in 4 mg PO DAILY #21 ea 12/08/24 a dose pack (Medrol (Jeovanny)) Allergies Allergy/AdvReac Type Severity Reaction Status Date / Time codeine AdvReac Severe Nausea Verified 11/17/24 23:02 Opioid HPI Opioid Management Most Recent Opioid Data: Last Pain Scale 9 12/08/24 08:25 12/08/24 Review of Systems ROS Status of ROS 10 or more systems reviewed and unremark able except as noted in history and below PFSH PFSH Social History Little interest or pleasure in doing things: not at all Feeling down, depressed, or hopeless: not at all Exam Narrative Exam Narrative: Time Seen: [] Vital Signs: [Per nurse's notes.] General: [Alert] Skin: [Warm, dry, no rash.] Head: [Normocephalic, atraumatic.] Neck: [Supple, trachea midline.] Eye: [Pupils are equal, round and reactive to light, extraocular movements are intact, normal conjunctiva.] Ears, nose, mouth and throat: oral mucosa moist. Cardiovascular: [Regular rate and rhythm, no murmur.] Respiratory: [Lungs are clear to auscultation, respirations are non-labored, breath sounds are equal.] Chest wall: [No tenderness, no deformity.] Gastrointestinal: [Soft, nontender, non distended, normal bowel sounds.] MSK: 5 out of 5 muscle strength x 4 extremities no calf pain or edema Psychiatric: Anxious, tearful Neurological: [Alert and oriented to person, place, time, and situation, no focal neurological deficit observed.] Constitutional Vital Signs, click to edit/add: Last Vital Signs Temp 98.6 F 12/08/24 07:46 Pulse 86 12/08/24 09:25 Resp 18 12/08/24 09:25 BP 136/88 12/08/24 09:25 Pulse Ox 98 12/08/24 09:25 Course Vital Signs Vital signs: Vital Signs Temperature 98.6 F 12/08/24 07:46 Pulse Rate 99 H 12/08/24 07:46 Respiratory Rate 18 12/08/24 07:46 Blood Pressure 138/100 H 12/08/24 07:46 Pulse Oximetry 98 12/08/24 07:46 Temperature 98.6 F 12/08/24 07:46 Pulse Rate 86 12/08/24 09:25 Respiratory Rate 18 12/08/24 09:25 Blood Pressure 136/88 12/08/24 09:25 Pulse Oximetry 98 12/08/24 09:25 Medical Decision Making MDM Narrative Medical decision making narrative: Patient's labs are negative for acute. Troponin negative x 1 D-dimer negative. This will decrease the likelihood that it is a PE or dissection. Chest x-ray does not show any pneumonia. It does show some bronchial cuffing and dilation most likely viral bronchitis. Patient has been on antibiotics and steroids recently. I will place her back on steroids although I do not think she needs antibiotics at this time and do not want to potentiate her likelihood of C. difficile. Patient does have an albuterol inhaler at home but states it is almost out so I wrote for another 1. I stressed the importance that she needs to follow-up with family doctor and manager leadership development to figure out why she has had this cough and chest pain for 3 months. She has had multiple rounds of antibiotics and steroids without full relief. I think she needs family medicine and a specialist to further diagnose what could possibly be going on. Patient expresses understanding. She said she is looking for a new family doctor and I did provide her a list. I also referred her to the manager leadership development as well. Return to ED if worsening symptoms otherwise follow-up as was stressed to her. She states she is comfortable with care plan. Differential Diagnosis Differential Diagnosis: PE, pneumonia, dissection, ACS, electrolyte abnormality, pleurisy, anxiety Medical Records Medical records reviewed: Yes I reviewed the patient's medical records Lab Data Lab results reviewed: Yes I reviewed the patient's lab results Labs: Lab Results 12/08/24 12/08/24 Range/Units 07:56 08:14 WBC 7.3 (4.0-11.0) 10^3/uL RBC 4.33 (4.20-5.40) 10^6/uL Hgb 13.9 (12.0-16.0) g/dL Hct 41.9 (36.0-48.0) % MCV 96.8 (81.0-99.0) fL MCH 32.1 (26.7-34.0) pg MCHC 33.2 (29.9-35.2) g/dL RDW 13.3 (11.0-15.0) % Plt Count 305 (150-450) 10^3/uL MPV 8.9 L (9.5-13.5) fL Neut % (Auto) 46.7 (43.0-75.0) % Lymph % (Auto) 32.6 (20.5-60.0) % [place] % (Auto) 9.5 (1.7-12.0) % Eos % (Auto) 10.0 H (0.9-7.0) % Baso % (Auto) 1.1 (0.2-2.0) % Neut # (Auto) 3.4 (1.4-6.5) 10^3/uL Lymph # (Auto) 2.4 (1.2-3.8) 10^3/uL [place] # (Auto) 0.7 (0.3-0.8) 10^3/uL Eos # (Auto) 0.7 (0.0-0.7) 10^3/uL Baso # (Auto) 0.1 (0.0-0.1) 10^3/uL Abs Immat Gran (auto) 0.01 (0.00-0.03) 10^3/uL Imm/Tot Granulo (auto) 0.1 (0.0-0.5) % D-Dimer 0.27 (<=0.59) mg/L FEU Sodium 141 (136-145) mmol/L Potassium 4.4 (3.5-5.1) mmol/L Chloride 106 (98-107) mmol/L Carbon Dioxide 25.8 (21.0-32.0) mmol/L Anion Gap 13.6 BUN 12.0 (7.0-18.0) mg/dL Creatinine 0.71 (0.55-1.02) mg/dL Est GFR ( Amer) >60 (>=60 mL/min/1.73m^2) Est GFR (Non-Af Amer) >60 (>=60 mL/min/1.73m^2) BUN/Creatinine Ratio 16.9 Glucose 97 (74-106) mg/dL Calcium 8.7 (8.5-10.1) mg/dL Total Bilirubin 0.8 (0.2-1.0) mg/dL AST 16 (15-37) U/L ALT 27 (14-59) U/L Alkaline Phosphatase 63 (46-116) U/L Troponin I High Sens <4.0 L (4.0-51.3) pg/mL Total Protein 6.9 (6.4-8.2) g/dL Albumin 3.6 (3.4-5.0) g/dL Globulin 3.3 g/dL Albumin/Globulin Ratio 1.1 Influenza Type A Ag Negative Influenza Type B Ag Negative SARS-CoV-2 Ag (CV2AG) Negative (NEGATIVE) Imaging Data Chest x-ray: Radiologist's impression: ITS Impressions Chest X-Ray 12/08/24 08:33 IMPRESSION: There are increased interstitial markings and peribronchial cuffing within both hilar and infrahilar regions can be associated with a bronchitis. . There is a healing or healed fracture of the right sixth rib which was acute on the CT chest examination dated 07/19/2025. Electronically authenticated by: ARTURO MACEDO Date: 12/08/2024 09:05 ECG Data Attestation: I personally reviewed and interpreted this ECG as follows: Interpretation: EKG INTERPRETATION Time: [] 752 Rate: [] 80 Rhythm: _ [] Normal sinus rhythm ST segments: _ [] No acute ST elevation or depression T waves: _ [] Ectopy: _ [] P wave/MS interval: _ [] QRS interval: _ [] QT interval: _ [] Comparison: _ [] Comparison EKG date: [] Performed by: [self] Discharge Plan Discharge Chief Complaint: Chest Pain Clinical Impression: Bronchitis Patient Disposition: Home, Self-Care Time of Disposition Decision: 09:17 Condition: Good Mode of Transportation: Private Vehicle Prescriptions / Home Meds: New albuterol sulfate 90 mcg/actuation HFA aerosol inhaler 1 inh inhalation Q6H PRN (Reason: shortness of breath or wheezing) Qty: 8.5 0RF methylprednisolone [Medrol (Jeovanny)] 4 mg tablets,dose pack 4 mg PO DAILY Qty: 21 0RF Rx Instructions: disp one use as directed No Action albuterol sulfate 90 mcg/actuation HFA aerosol inhaler 2 puff INHALATION Q6H PRN (Reason: shortness of breath or wheezing) Print Language: Turkish Instructions: Acute Bronchitis (ED) Referrals: Tyrell Castillo DO [Physician] - 1 week Physician,Non-Staff, MD [Primary Care Provider] - 1 week Discharge Date/Time: 12/08/24 09:25
[2024-12-08 09:25] VITALS: BP 136/88; PULSE 86; O2SAT 98
== END 2024-12-08 09:25 | disposition home or self-care (01) ==
PROVIDERS: Emergency Provider Emergency Medicine
DX: J40 Bronchitis, not specified as acute or chronic (principal); Z87.01 Personal history of pneumonia (recurrent)
CPT/HCPCS: 36415; 71046; 80053; 84484; 85025; 85378; 87804; 87811; 93005; 96374; 99285; J3360

== ENCOUNTER 2025-01-04 15:46 | Outpatient (OUT) | payer BC, SELFPAY ==
[2025-01-04 16:02] LABS: Basophils Absolute Auto 0.1 10^3/uL (0.0-0.1); Basophils Percent Auto 0.8 % (0.2-2.0); Eosinophils Absolute Auto 0.5 10^3/uL (0.0-0.7); Eosinophils Percent Auto 8.1 % (0.9-7.0); Hematocrit 39.3 % (36.0-48.0); Hemoglobin 13.5 g/dL (12.0-16.0); Immature Granulocytes Abs Auto 0.01 10^3/uL (0.00-0.03); Immature Granulocytes Pct Auto 0.2 % (0.0-0.5); Lymphocytes Absolute Auto 1.6 10^3/uL (1.2-3.8); Lymphocytes Percent Auto 25.3 % (20.5-60.0); Mean Corpuscular HGB Conc 34.4 g/dL (29.9-35.2); Mean Corpuscular Hemoglobin 33.2 pg (26.7-34.0); Mean Corpuscular Volume 96.6 fL (81.0-99.0); Mean Platelet Volume 9.1 fL (9.5-13.5); Monocytes Absolute Auto 0.5 10^3/uL (0.3-0.8); Monocytes Percent Auto 7.9 % (1.7-12.0); Neutrophils Absolute Auto 3.7 10^3/uL (1.4-6.5); Neutrophils Percent Auto 57.7 % (43.0-75.0); Platelet Count 268 10^3/uL (150-450); Red Blood Count 4.07 10^6/uL (4.20-5.40); Red Cell Distribution Width 13.1 % (11.0-15.0); White Blood Count 6.4 10^3/uL (4.0-11.0)
--- OUTSIDE RECORDS SUMMARY | 2025-01-04 16:02 | XMS_ITS | CCD ---
Author Organization [facility] Care Team Providers Care Bonsai Tender Name Role Phone HOUSE, DR KANG Admitting Unavailable HOUSE, DR KANG Attending Unavailable SALEM, DR KANG Primary Care Unavailable SALEM, DR KANG Consulting Unavailable Elizabeth Andino Unavailable Mariely Hitchcock Unavailable GARRISON TEMPLE Attending Unavailable RICKY, MEAGAN A [...] Unavailable RICKY, MEAGAN A Primary Care Unavailable PAWAN SKY Admitting Unavailable PAWAN SKY Attending Unavailable PEARL FAJARDO Referring Unavailable NO PCP, NO PCP Primary Care Unavailable PAWAN SKY Attending Unavailable PAWAN SKY Referring Unavailable NO PCP, NO PCP Primary [...] NO PCP, NO PCP Primary Care Unavailable PAWAN SKY Attending Unavailable PAWAN SKY E Referring Unavailable NO PCP, NO PCP Primary Care Unavailable PAWAN SKY E Admitting Unavailable PAWAN SKY E Attending Unavailable PEARL FAJARDO Referring Unavailable NO PCP, NO PCP Primary Care Unavailable DAVIS HAYES Attending Unavailable NO PCP, NO PCP Primary Care Unavailable RICKY, MEAGAN A Referring Unavailable RICKY, MEAGAN A Primary Care Unavailable RICKY, MEAGAN A Referring Unavailable RICKY, MEAGAN A Primary Care Unavailable RICKY, MEAGAN A Referring Unavailable RICKY, MEAGAN A Primary Care Unavailable DENAE GUZMAN Attending Unavailable JOSE DANIEL, PAWAN E Referring Unavailable RICKY, MEAGAN A Primary Care Unavailable NO FAMILY, PHYSICIAN Primary Care Provider Unava ilable Alea Hurd APRN Attending Provider NO FAMILY, PHYSICIAN Primary Care Unavailable Augustina Huang Attending Unavailable Augustina Huang Admitting Unavailable Alea Hurd Attending Unavailluz elena e Alea Hurd Admitting Unavailabl e NO FAMILY, PHYSICIAN Primary Care Unavailable Rickyvibha CANDELARIO-BUSINESS DATA ANALYST, Meagan A Primary Care Provi fransico Allergies Allergy Classification Reported Allergen(s) Allergy Type Date of Onset Reaction(s) Facility (1 source) Codeine Drug Allergy 6 [facility] Repository (2 sources) Codeine Drug Allergy stomach upset [facility] Other (3 sources) Acetaminophen / Codeine; Translations: [ACETAMINOPHEN-CO DEINE] Drug Allergy 7 Nausea [facility] Repository (1 source) Codeine Drug Allergy 4 [facility] Repository Medications Current Medications Medication Drug Class(es) Dates Sig (Normalized) Sig (Original) acetaminophen 325 mg oral tablet (1 source) take 3 tablets by mouth every six [...] 12 hrs for 7 days Jun, Active Brompheniramine-Pseud oeph-Dm (Bromfed Dm) 2-30-10 mg/5 mL syrup (1 source) Start: 10-03-2024 take 1 mL by mouth every six hours as needed Brompheniramine-Ps eudoeph-Dm (Bromfed Dm) 2-30-10 mg/5 mL syrup Active 10 ML PO Every 6 hours as needed for cold symptoms 100 October 03, 2024 12:00am cetirizine hydrochloride 10 mg oral tablet (1 source) Histamine-1 Receptor Antagonist Start: 02-17-2024 take 1 tablet by mouth in the morning cetirizine (ZyrTEC) 10 mg tablet Take 1 tablet (10 mg total) by mouth in the morning. 30 tablet 2 02/17/2024 Active dextromethorphan hydrobromide 15 mg / guaiFENesin 400 mg / pseudoephedrine hydrochloride 60 mg oral tablet (1 source) alpha-Adrenergic Agonist, Uncompetitive R-yaqnva-Z-aspartat e Receptor Antagonist, Sigma-1 Agonist Start: 01-14-2024 take 4 tablets by mouth every twenty-four hours as needed Pseudoephedrine-Dm -Guaifenesin (Capmist Dm) 60-15-400 mg tablet Active 1 TAB PO EVERY 4-6 HOURS as needed for cold symptoms January 14, 2024 12:00am do not exceed 4 doses per 24 hrs famotidine 20 mg oral tablet (1 source) Histamine-2 Receptor Antagonist Start: 03-22-2024 famotidine (PEPCID) 20 mg tablet 03/22/2024 Active fluticasone propionate 0.05 mg/actuat metered dose nasal spray (2 sources) Corticosteroid Start: 02-17-2024 take 2 spray(s) nasal route in the morning fluticasone propionate (FLONASE) 50 mcg/actuation nasal spray Administer 2 sprays into each nostril in the morning. 16 mL 02/17/2024 Active Start: 01-14-2024 take 1 spray(s) nasa l route once daily Fluticasone Propionate 50 mcg/actuation spray,suspension Active 2 SPRAY INTRANASAL Daily January 14, 2024 12:00am administer into each nostril levonorgestrel 0.763102 mg/hr intrauterine system (1 source) Progestin, Progestin-containing Intrauterine Device levonorgestreL (MIRENA) 21 mcg/24 hours (8 yrs) 52 mg IUD 1 each by intrauterine route once. Active omeprazole 40 mg delayed release oral capsule (1 source) Proton Pump Inhibitor Start: 2023 take 1 capsule by mouth in the morning omeprazole (PriLOSEC) 40 mg capsule Indications: Black tarry stools , History of stomach ulcers Take 1 capsule (40 mg total) by mouth in the morning. 30 capsule 1 03/10/2024 Active predniSONE 20 mg oral tablet (2 sources) Start: 2023 take 2 tablets by mouth once daily Prednisone 20 mg tablet Active 40 MG PO Daily 08 21October 03, 2024 12:00am Start: 01-11-2024 take 1 tablet by autumn th twice daily Prednisone 20 mg tablet Active 20 MG PO Twice daily 08 21January 11, 2024 12:00am Completed/Discontinued Medications Medication Drug Class(es) Dates Sig (Normalized) Sig (Original) Triamcinolone (4 sources) Corticosteroid Start: 07-21-2018 KENALOG - 10 m g Jul, 40 mg Start: 05-21-2018 KENALOG - 10 m g May, 60 mg Problems Active Problems Problem Classification Problem Date Documented Da te Episodic/Chronic Allergic reactions (1 source) Allergic disorder; Translations: [Allergy, unspecified, initial encounter] 05-31-2021 Episodic Gastroduodenal ulcer (except hemorrhage) (1 source) Personal history of peptic ulcer disease; Translations: [Personal history of peptic ulcer disease] Onset: 02-17-2024 Episodic Gastrointestinal hemorrhage (2 sources) Rectal hemorrhage; Translations: [Melena] Onset: 02-17-2024 Episodic Nausea and vomiting (3 sources) [...] Spondylosis; intervertebral disc disorders; other back problems (4 sources) Spondylosis without myelopathy or radiculopathy, thoracic region; Translations: [Spondylosis without myelopathy or radiculopathy, lumbosacral region] Onset: 11-27-2017 10-29-2023 Chronic Spondylosis; intervertebral disc disorders; other back problems (5 sources) Backache; Translations: [Disorder of sacrum] Onset: 04-07-2017 04-07-2017 Episodic Sprains and strains (2 sources) Sprain of unspecified ligament of left ankle, subsequent encounter; Translations: [Sprain of unspecified ligament of left ankle, initial encounter] Onset: 01-19-2024 Episodic Unclassified (3 sources) CONTACT W/AND (SUSP) [...] Documented Date Episodic/Chronic Contraceptive and procreative management (1 source) Intrauterine contraceptive device in situ; Translations: [Presence of (intrauterine) contraceptive device] Onset: 05-29-2023 05-29-2023 Episodic Mood disorders (1 source) Mood disorders Onset: 12-24-2023 12-24-2023 Other connective tissue disease (2 sources) Pain in left thigh; Translations: [Pain in left thigh] Onset: 12-24-2023 Episodic Other connective tissue disease (1 source) Pain of left thigh; Translations: [Pain in left thigh] Onset: 12-24-2023 12-24-2023 Episodic Other nervous system disorders (2 sources) Anesthesia of skin; Translations: [Anesthesia of skin] Onset: 12-24-2023 Episodic Other nervous system disorders (2 sources) Paresthesia of skin; Translations: [Paresthesia of skin] Onset: 12-24-2023 Episodic Other nervous system disorders (1 source) Paresthesia of lower extremity; Translations: [Anesthesia of skin] Onset: 12-24-2023 12-24-2023 Episodic Other screening for suspected conditions (not mental disorders or infectious disease) (2 sources) Encounter for screening for lipoid disorders; Translations: [Encounter for screening for lipoid disorders] Onset: 12-24-2023 Episodic Other upper respiratory infections (2 sources) Acute pharyngitis, unspecified; Translations: [Acute upper respiratory infection, unspecified] Onset: 06-19-2022 Resolved: 06-19-2022 Episodic Residual codes; unclassified (2 sources) Family history of malignant neoplasm of breast; Translations: [Family history of malignant neoplasm of breast] Onset: 04-30-2023 Episodic Residual codes; unclassified (1 source) Family history of breast cancer; Translations: [Family history of malignant neoplasm of breast] Onset: 04-30-2023 04-30-2023 Episodic Unclassified (1 source) CONTACT W/AND (SUSP) EXPOS COVID-19; Translations: [CONTACT W/AND (SUSP) EXPOS COVID-19] Onset: 08-06-2021 Unclassified (1 source) Onset: 04-30-2023 04-30-2023 Results Test Name Value Interpretation Reference Range Facility XR chest 2V*on 11-05-2024 XR chest 2V* [facility] Main [address] [address] XRay Report Signed Patient: Cora Tracey MR#: [id number] : 1980 Acct:[id number] Age/Sex: 44 / F ADM Date: 11/05/24 Loc: XDUCLY Room: Type: REG CLI Attending Dr: Augustina Huang CINDER PIT CRANE OPERATOR Copies to: Augustina Huang APRN Ordering Provider: [...] Koby Domingo M.D.11/05/2024 10:13 AM Dictation Location: [place] [address] Transcribed By: [facility] 11/05/24 1013 Dictated By: Koby Domingo DO 11/05/24 1012 Signed By: 11/05/24 1013 Normal [facility] No Panel InformationOrdered By: Alea Hurd on 10-03-2024 Quick Strep (POC) [facility] X-ray reportOrdered By: Lilia Sherman on 10-03-2024 Study report [facility] Main [address] [address] XRay Report Signed Patient: Cora Tracey MR#: [id number] : 1980 Acct:[id number] Age/Sex: 44 / F ADM Date: 4 Loc: XDUCLY Room: Type: REG CLI Attending Dr: Alea Hurd CINDER PIT CRANE OPERATOR Copies to: Alea Hurd APRN~ Ordering Provider: [...] Brea Sherman M.D.10/03/2024 2:26 PM Dictation Location: [place] [address] Transcribed By: [facility] 10/03/24 1426 Dictated By: Brea Sherman MD 10/03/24 1402 Signed By: 10/03/24 1426 [facility] Work Phone: XR chest 2V*on 10-03-2024 XR chest 2V* [facility] Main [place] [address] [place] [address] XRay Report Signed Patient: Cora Tracey MR#: [id number] : 1980 Acct:[id number] Age/Sex: 44 / F ADM Date: 10/03/24 Loc: XDUCLY Room: Type: [facility] Attending Dr: Alea Hurd CINDER PIT CRANE OPERATOR Copies to: Alea Hurd APRN Ordering Provider: [...] Brea Sherman M.D.10/03/2024 2:26 PM Dictation Location: [place] [address] Transcribed By: [facility] 10/03/24 1426 Dictated By: Brea Sherman MD 10/03/24 1402 Signed By: 10/03/24 1426 Normal [facility] H PYLORI SCREENon 03-25-2024 H. pylori Org specific cx Ql (Delmy fld) Negative Normal NEG [facility] Comment on above: Performed By: #### C BCA, THYR, CMP, 69041-3, 2132-07 #### [facility] ([id number]) [address] [place] [address], [address] [place] [address] Surgical Pathologyon 024 Surgical Pathology Normal [facility] Comment on above: Result Comment: [facility] [employer] [facility] [address] [place] [address] Surgical Pathology Consultation Patient Name:CORA TRACEY:1980 (Age: 43)Gender:FTaken:4Reported:03/31/2024hysician(s):Javy Lomeli D.O. ([phone])Copy To: Rec. #:[id number]: #[id number] Final Pathologic Diagnosis 1. Gastric antrum, biopsy: Mild inactive gastritis with features suggestive of chemical gastritis. No mucosal ulcer, metaplasia or dysplasia identified. No Helicobacter pylori organisms seen on H&E stain. 2. Distal esophagus, biopsy: Active esophagitis with intraepithelial eosinophils (12 intraepithelial eosinophils per high-power field). No metaplasia or dysplasia identified. Report Electronically Signed Out nxk/03/31/2024Jama Painting MD Interpretation performed at [facility], [address] [place] [address], License number: [id number]. Clinical History Black stools, Part 1; Pre-pyloric. Gross Description 1. Received in formalin labeled, KYUNG, antrum are 3 zamarripa delicate soft tissue fragments, 0.1 to 0.3 cm in greatest dimension. The specimens are filtered and submitted in a single cassette. (1, ns, [id number], m7) TB 2. Received in formalin labeled, KYUNG, distal esophageal are 3 zamarripa delicate soft tissue fragments, 0.1-0.4 cm in greatest dimension. The specimens are filtered and submitted in a single cassette. (1, ns, [id number], m7) TB tgb/03/25/2024NSK Specimen(s) Received 1: Antrum 2: Distal esophageal biopsy Fee Codes(s): 1; 70301 2; 01043 MAMM DIAGNOSTIC BILATERAL W CADon 02-10-2024 MAMM [...] PM 1 b MAMM 1 YR Normal [facility] US BREAST BILAT - LIMITEDon 02-10-2024 US [...] PM 1 b MAMM 1 YR Normal [facility] BASIC METABOLIC PANLon 02-02 Anion gap [Moles/Vol] 7 mmol/L Normal 5-15 [facility] Comment on above: Performed By: #### C BCA, THYR, CMP, , 2132-07 #### [facility] ([id number]) [address], [address] [place] [address] Calcium [Mass/Vol] 8.3 mg/dL Low 8.5-10.5 [facility] Comment on above: Performed By: #### C BCA, THYR, CMP, , 2132-07 #### [facility] ([id number]) [address], [address] [place] [address] Chloride [Moles/Vol] 107 mmol/L Normal 98-109 [facility] Comment on above: Performed By: #### C BCA, THYR, CMP, , 2132-07 #### [facility] ([id number]) [address], [address] [place] [address] CO2 [Moles/Vol] 23 mmol/L Normal 22-32 [facility] Comment on above: Performed By: #### C BCA, THYR, CMP, 52037-9, 2132-07 #### [facility] ([id number]) [address], [address] [place] [address] Creatinine [Mass/Vol] 0.61 mg/dL Normal 0.40-1.00 [facility] Comment on above: Result Comment: METH OD TRACEABLE TO IDMS STANDARD Performed By: #### C BCA, THYR, CMP, , 2132-07 #### [facility] ([id number]) [address], [address] [place] [address] eGFR (CKD-EPI) NON-RACE DEPENDENT >90 Normal >59 [facility] Comment on above: Result Comment: Reported eGFR is based on the CKD-EPI 2020 equation that does not use a race coefficient. Performed By: #### C BCA, THYR, CMP, , 2132-07 #### [facility] ([id number]) [address], [address] [place] [address] Glucose [Mass/Vol] 115 mg/dL High 65-99 [facility] Comment on above: Performed By: #### C BCA, THYR, CMP, , 2132-07 #### [facility] ([id number]) [address] [address] [place] [address] Potassium [Moles/Vol] 4.1 mmol/L Normal 3.5-5.0 [facility] Comment on above: Performed By: #### C BCA, THYR, CMP, , 2132-07 #### [facility] ([id number]) [address] [address] [place] [address] Sodium [Moles/Vol] 137 mmol/L Normal 134-146 [facility] Comment on above: Performed By: #### C BCA, THYR, CMP, , 2132-07 #### [facility] ([id number]) [address] [address] [place] [address] Urea nitrogen [Mass/Vol] 21 mg/dL Normal 5-23 [facility] Comment on above: Performed By: #### C BCA, THYR, CMP, 42389-2, 9 #### [facility] ([id number]) [address] [place] [address] CBC AND AUTO DIFFon 02-03-20 24 ABSOLUTE BASOPHIL 0.0 X10E9/L Normal 0.0-0.2 [facility] Comment on above: Performed By: #### C BCA, PINR, 40800-9, BMP, 3040-3, 63248-5, LIVR, 20751-7 #### [facility] ([id number]) [address] [place] [address] ABSOLUTE NEUTROPHIL 7.9 X10E9/L High 1.5-6.6 [facility] Comment on above: Performed By: #### C BCA, PINR, 89703-4, BMP, 3040-3, 97168-3, LIVR, #### [facility] ([id number]) [address] [place] [address] Basophils/100 WBC (Bld) 0.4 % Normal [facility] Comment on above: Performed By: #### C BCA, PINR, 28275-0, BMP, 3040-3, 52194-2, LIVR, 79217-6 #### [facility] ([id number]) [address] [place] [address] Eosinophils (Bld) [#/Vol] 0.2 10*3/uL Normal 0.0-0.4 [facility] Comment on above: Performed By: #### C BCA, PINR, 41813-0, BMP, 3040-3, 99419-4, LIVR, 68542-7 #### [facility] ([id number]) [address] [place] [address] Eosinophils/100 WBC (Bld) 2.4 % Normal [facility] Comment on above: Performed By: #### C BCA, PINR, 62846-6, BMP, 3040-3, 73146-9, LIVR, 32876-1 #### [facility] ([id number]) [address] [place] [address] Erythrocyte distribution width (RBC) [Ratio] 20.0 % High 11.5-15.0 [facility] Comment on above: Performed By: #### C BCA, PINR, 09512-9, BMP, 3040-3, 38222-1, LIVR, 77637-2 #### [facility] ([id number]) [address] [place] [address] Hematocrit (Bld) [Volume fraction] 35.6 % Normal 35-47 [facility] Comment on above: Performed By: #### C BCA, PINR, 59487-6, BMP, 3040-3, 58729-4, LIVR, 43617-4 #### [facility] ([id number]) [address] [place] [address] Hemoglobin (Bld) [Mass/Vol] 11.8 g/dL Normal 11.7-15.5 [facility] Comment on above: Performed By: #### C BCA, PINR, 57908-0, BMP, 3040-3, 42787-5, LIVR, 13688-8 #### [facility] ([id number]) [address] [place] [address] Lymphocytes (Bld) [#/Vol] 0.4 10*3/uL Low 1.0-3.5 [facility] Comment on above: Performed By: #### C BCA, PINR, 55739-7, BMP, 3040-3, 92941-4, LIVR, 43076-0 #### [facility] ([id number]) [address] [place] [address] Lymphocytes/100 WBC (Bld) 4.4 % Normal [facility] Comment on above: Performed By: #### C BCA, PINR, 80916-2, BMP, 3040-3, 49959-1, LIVR, 49759-0 #### [facility] ([id number]) [address] [place] [address] MCH (RBC) [Entitic mass] 25.9 pg Low 27-34 [facility] Comment on above: Performed By: #### C BCA, PINR, 33679-6, BMP, 3040-3, 94795-6, LIVR, 54525-3 #### [facility] ([id number]) [address] [place] [address] MCHC (RBC) [Mass/Vol] 33.1 g/dL Normal 32-36 [facility] Comment on above: Performed By: #### C BCA, PINR, 87659-8, BMP, 3040-3, 20286-8, LIVR, 99794-5 #### [facility] ([id number]) [address] [place] [address] MCV (RBC) [Entitic vol] 78 fL Low 80-100 [facility] Comment on above: Performed By: #### C BCA, PINR, 88939-3, BMP, 3040-3, 47180-7, LIVR, 06978-9 #### [facility] ([id number]) [address] [place] [address] Monocytes (Bld) [#/Vol] 0.4 10*3/uL Normal 0-0.9 [facility] Comment on above: Performed By: #### C BCA, PINR, 04046-4, BMP, 3040-3, 88582-8, LIVR, 95621-7 #### [facility] ([id number]) [address] [place] [address] Monocytes/100 WBC (Bld) 4.9 % Normal [facility] Comment on above: Performed By: #### C BCA, PINR, 92183-0, BMP, 3040-3, 85913-2, LIVR, 92178-4 #### [facility] ([id number]) [address] [place] [address] Neutrophils/100 WBC (Bld) 87.9 % Normal [facility] Comment on above: Performed By: #### C BCA, PINR, 84400-4, BMP, 3040-3, 78574-0, LIVR, 59166-2 #### [facility] ([id number]) [address] [place] [address] Platelet mean volume (Bld) [Entitic vol] 7.8 fL Normal 7-12 [facility] Comment on above: Performed By: #### C BCA, PINR, 61613-9, BMP, 3040-3, 45647-1, LIVR, 41499-9 #### [facility] ([id number]) [address] [place] [address] Platelets (Bld) [#/Vol] 296 10*3/uL Normal 150-450 [facility] Comment on above: Performed By: #### C BCA, PINR, 25991-0, BMP, 3040-3, 96490-3, LIVR, 92047-1 #### [facility] ([id number]) [address] [place] [address] RBC COUNT 4.54 X10E12/L Normal 3.80-5.20 [facility] Comment on above: Performed By: #### C BCA, PINR, 46542-0, BMP, 3040-3, 00251-0, LIVR, 81426-0 #### [facility] ([id number]) [address] [place] [address] WBC (Bld) [#/Vol] 9.0 10*3/uL Normal 4.0-11.0 [facility] Comment on above: Performed By: #### C BCA, PINR, 96587-0, BMP, 3040-3, 52689-2, LIVR, 80731-5 #### [facility] ([id number]) [address] [facility] [place] [address] LIPASEon 02-03-2024 Lipase [Catalytic activity/Vol] 39 U/L Normal 17-40 [facility] Comment on above: Performed By: #### C BCA, THYR, CMP, 38087-5, 2132-07 #### [facility] ([id number]) [address], [address] [place] [address] LIVER PANELon 02-03-2024 Albumin [Mass/Vol] 3.9 g/dL Normal 3.2-5.3 [facility] Comment on above: Performed By: #### C BCA, THYR, CMP, 92617-9, 2132-07 #### [facility] ([id number]) [address], [address] [place] [address] ALP [Catalytic activity/Vol] 45 U/L Normal 39-130 [facility] Comment on above: Performed By: #### C BCA, THYR, CMP, 74367-2, 2132-07 #### [facility] ([id number]) [address], [address] [place] [address] ALT [Catalytic activity/Vol] 28 U/L Normal 0-31 [facility] Comment on above: Performed By: #### C BCA, THYR, CMP, 35941-3, 2132-07 #### [facility] ([id number]) [address], [address] [place] [address] AST [Catalytic activity/Vol] 24 U/L Normal 0-41 [facility] Comment on above: Performed By: #### C BCA, THYR, CMP, 55644-7, 2132-07 #### [facility] ([id number]) [address], [address] [place] [address] Bilirubin [Mass/Vol] 1.6 mg/dL High 0.3-1.2 [facility] Comment on above: Performed By: #### C BCA, THYR, CMP, , 2132-07 #### [facility] ([id number]) [address], [address] [place] [address] Bilirubin.direct [Mass/Vol] 0.2 mg/dL Normal 0.0-0.4 [facility] Comment on above: Performed By: #### C BCA, THYR, CMP, , 2132-07 #### [facility] ([id number]) [address], [address] [place] [address] Protein [Mass/Vol] 7.2 g/dL Normal 6.0-8.0 [facility] Comment on above: Performed By: #### C BCA, THYR, CMP, , 2132-07 #### [facility] ([id number]) [address], [address] [place] [address] Lactate (P kannan) [Moles/Vol]o n 02-03-2024 LACTATE W/REFLEX 1.2 mmol/L Normal 0.4-2.0 [facility] Comment on above: Result Comment: Result did not trigger repeat Lactate, re-order if needed. Performed By: #### C BCA, THYR, CMP, , 2132-07 #### [facility] ([id number]) [address], [address] [place] [address] MAGNESIUMon 02-03-2024 Magnesium [Mass/Vol] 2.1 mg/dL Normal 1.8-2.6 [facility] Comment on above: Performed By: #### C BCA, THYR, CMP, , 2132-07 #### [facility] ([id number]) [address] [facility], [address] [place] [address] PROTIME AND INRon 02-03-2024 INR Coag (PPP) [Relative time] 1.1 {INR} Normal 0.8-1.1 [facility] Comment on above: Performed By: #### C BCA, PINR, 65520-5, BMP, 3040-3, 81758-7, LIVR, 35493-3 #### [facility] ([id number]) [address] [place] [address] PT Coag (PPP) [Time] 12.9 s Normal 9.8-13.2 [facility] Comment on above: Result Comment: NEW REFERENCE RANGE Performed By: #### C BCA, PINR, 35304-9, BMP, 3040-3, 23251-1, LIVR, 47683-4 #### [facility] ([id number]) [address] [place] [address] SARS/FLU A+B/RSV by NAAT/Mol ecularon 02-03-2024 SARS/FLU [...] operators who are performing tests using either Neurescue DX or LANDBAY systems and is limited to laboratories that [...] repeat. Fact Sheet for Healthcare Providers: https://www.fda.gov /media/951385/downl oad Fact Sheet for Patients: https://www.fda.gov /media/728346/downl oad Normal [facility] Comment on above: Performed By: #### C BCA, THYR, CMP, 83699-4, 2132-07 #### [facility] ([id number]) [address], [address] [place] [address] aPTT Coag (PPP) [Time]on aPTT Coag (Bld) [Time] 29 s Normal 26-37 [facility] Comment on above: Result Comment: NEW REFERENCE RANGE Performed By: #### C BCA, THYR, CMP, 46503-3, 2132-07 #### [facility] ([id number]) [address], [address] [place] [address] XR ANKLE LT MIN 3 VWSon XR ANKLE LT MIN 3 VWS XR [...] A Griffiths DO on 01/19/2024 6:04 AM Baldemar Montes have personally reviewed the image(s) and agree with and/or edited the report 3 Finalized by Baldemar Saavedra on 01/19/2024 6:13 AM Normal [facility] XR FEMUR LT 2+ VIEWSon 12-27 XR [...] Carpenter MD on 12/27/2023 11:54 AM Normal [facility] CBC AND AUTO DIFFon 12-26-19 24 ABSOLUTE BASOPHIL 0.0 X10E9/L Normal 0.0-0.2 [facility] Comment on above: Performed By: #### C BCA, THYR, [facility], , 2132-07 #### [facility] ([id number]) [address], [address] [place] [address] ABSOLUTE NEUTROPHIL 3.3 X10E9/L Normal 1.5-6.6 [facility] Comment on above: Performed By: #### C BCA, THYR, [facility], , 2132-07 #### [facility] ([id number]) [address], [address] [place] [address] Basophils/100 WBC (Bld) 0.8 % Normal [facility] Comment on above: Performed By: #### C BCA, THYR, [facility], , 2132-07 #### [facility] ([id number]) [address], [address] [place] [address] Eosinophils (Bld) [#/Vol] 0.3 10*3/uL Normal 0.0-0.4 [facility] Comment on above: Performed By: #### C BCA, THYR, CMP, , 2132-07 #### [facility] ([id number]) [address], [address] [place] [address] Eosinophils/100 WBC (Bld) 5.1 % Normal [facility] Comment on above: Performed By: #### C BCA, THYR, CMP, , 2132-07 #### [facility] ([id number]) [address], [facility] [address] [place] [address] Erythrocyte distribution width (RBC) [Ratio] 21.1 % High 11.5-15.0 [facility] Comment on above: Performed By: #### C BCA, THYR, CMP, , 2132-07 #### [facility] ([id number]) [address], [address] [place] [address] Hematocrit (Bld) [Volume fraction] 33.4 % Low 35-47 [facility] Comment on above: Performed By: #### C BCA, THYR, CMP, , 2132-07 #### [facility] ([id number]) [address], [address] [place] [address] Hemoglobin (Bld) [Mass/Vol] 10.8 g/dL Low 11.7-15.5 [facility] Comment on above: Performed By: #### C BCA, THYR, CMP, , 2132-07 #### [facility] ([id number]) [address] [address] [place] [address] Lymphocytes (Bld) [#/Vol] 1.9 10*3/uL Normal 1.0-3.5 [facility] Comment on above: Performed By: #### C BCA, THYR, CMP, , 2132-07 #### [facility] ([id number]) [address], [address] [place] [address] Lymphocytes/100 WBC (Bld) 29.9 % Normal [facility] Comment on above: Performed By: #### C BCA, THYR, CMP, , 2132-07 #### [facility] ([id number]) [address], [address] [place] [address] MCH (RBC) [Entitic mass] 24.3 pg Low 27-34 [facility] Comment on above: Performed By: #### C BCA, THYR, CMP, , 2132-07 #### [facility] ([id number]) [address], [address] [place] [address] MCHC (RBC) [Mass/Vol] 32.2 g/dL Normal 32-36 [facility] Comment on above: Performed By: #### C BCA, THYR, CMP, , 2132-07 #### [facility] ([id number]) [address], [address] [place] [address] MCV (RBC) [Entitic vol] 76 fL Low 80-100 [facility] Comment on above: Performed By: #### C BCA, THYR, CMP, , 2132-07 #### [facility] ([id number]) [address], [address] [place] [address] Monocytes (Bld) [#/Vol] 0.7 10*3/uL Normal 0-0.9 [facility] Comment on above: Performed By: #### C BCA, THYR, CMP, , 2132-07 #### [facility] ([id number]) [address], [address] [place] [address] Monocytes/100 WBC (Bld) 11.3 % Normal [facility] Comment on above: Performed By: #### C BCA, THYR, CMP, , 2132-07 #### [facility] ([id number]) [address], [address] [place] [address] Neutrophils/100 WBC (Bld) 52.9 % Normal [facility] Comment on above: Performed By: #### C BCA, THYR, CMP, , 2132-07 #### [facility] ([id number]) [address], [address] [place] [address] Platelet mean volume (Bld) [Entitic vol] 8.2 fL Normal 7-12 [facility] Comment on above: Performed By: #### C BCA, THYR, CMP, , 2132-07 #### [facility] ([id number]) [address] [address] [place] [address] Platelets (Bld) [#/Vol] 296 10*3/uL Normal 150-450 [facility] Comment on above: Performed By: #### C BCA, THYR, CMP, , 2132-07 #### [facility] ([id number]) [address] [address] [place] [address] RBC COUNT 4.42 X10E12/L Normal 3.80-5.20 [facility] Comment on above: Performed By: #### C BCA, THYR, CMP, , 2132-07 #### [facility] ([id number]) [address] [address] [place] [address] WBC (Bld) [#/Vol] 6.2 10*3/uL Normal 4.0-11.0 [facility] Comment on above: Performed By: #### C BCA, THYR, CMP, 20369-5, 2132-07 #### [facility] ([id number]) [address], [address] [place] [address] COMPREHENSIVE METABOLIC PANE Duran 12-26-2023 Albumin [Mass/Vol] 3.9 g/dL Normal 3.2-5.3 [facility] Comment on above: Performed By: #### C BCA, THYR, CMP, 82216-1, 2132-07 #### [facility] ([id number]) [address], [address] [place] [address] ALP [Catalytic activity/Vol] 46 U/L Normal 39-130 [facility] Comment on above: Performed By: #### C BCA, THYR, CMP, 59489-9, 2132-07 #### [facility] ([id number]) [address], [address] [place] [address] ALT [Catalytic activity/Vol] 20 U/L Normal 0-31 [facility] Comment on above: Performed By: #### C BCA, THYR, CMP, , 2132-07 #### [facility] ([id number]) [address], [address] [place] [address] Anion gap [Moles/Vol] 7 mmol/L Normal 5-15 [facility] Comment on above: Performed By: #### C BCA, THYR, CMP, , 2132-07 #### [facility] ([id number]) [address], [address] [place] [address] AST [Catalytic activity/Vol] 13 U/L Normal 0-41 [facility] Comment on above: Performed By: #### C BCA, THYR, CMP, , 2132-07 #### [facility] ([id number]) [address], [address] [place] [address] Bilirubin [Mass/Vol] 1.2 mg/dL Normal 0.3-1.2 [facility] Comment on above: Performed By: #### C BCA, THYR, CMP, 35405-8, 2132-07 #### [facility] ([id number]) [address], [address] [place] [address] Calcium [Mass/Vol] 9.0 mg/dL Normal 8.5-10.5 [facility] Comment on above: Performed By: #### C BCA, THYR, CMP, 45853-5, 2132-07 #### [facility] ([id number]) [address], [address] [place] [address] Chloride [Moles/Vol] 106 mmol/L Normal 98-109 [facility] Comment on above: Performed By: #### C BCA, THYR, CMP, , 2132-07 #### [facility] ([id number]) [address], [address] [place] [address] CO2 [Moles/Vol] 26 mmol/L Normal 22-32 [facility] Comment on above: Performed By: #### C BCA, THYR, CMP, , 2132-07 #### [facility] ([id number]) [address] [place] [address] Creatinine [Mass/Vol] 0.63 mg/dL Normal 0.40-1.00 [facility] Comment on above: Result Comment: METH OD TRACEABLE TO IDMS STANDARD Performed By: #### C BCA, THYR, CMP, , 2132-07 #### [facility] ([id number]) [address], [address] [place] [address] eGFR (CKD-EPI) NON-RACE DEPENDENT >90 Normal >59 [facility] Comment on above: Result Comment: Reported eGFR is based on the CKD-EPI 2020 equation that does not use a race coefficient. Performed By: #### C BCA, THYR, CMP, , 2132-07 #### [facility] ([id number]) [address], [address] [place] [address] Glucose [Mass/Vol] 92 mg/dL Normal 65-99 [facility] Comment on above: Performed By: #### C BCA, THYR, CMP, , 2132-07 #### [facility] ([id number]) [address], [address] [place] [address] Potassium [Moles/Vol] 4.5 mmol/L Normal 3.5-5.0 [facility] Comment on above: Performed By: #### C BCA, THYR, CMP, , 2132-07 #### [facility] ([id number]) [address], [address] [place] [address] Protein [Mass/Vol] 6.5 g/dL Normal 6.0-8.0 [facility] Comment on above: Performed By: #### C BCA, THYR, CMP, , 2132-07 #### [facility] ([id number]) [address], [address] [place] [address] Sodium [Moles/Vol] 139 mmol/L Normal 134-146 [facility] Comment on above: Performed By: #### C BCA, THYR, CMP, , 2132-07 #### [facility] ([id number]) [address], [address] [place] [address] Urea nitrogen [Mass/Vol] 12 mg/dL Normal 5-23 [facility] Comment on above: Performed By: #### C BCA, THYR, CMP, , 2132-07 #### [facility] ([id number]) [address], [address] [place] [address] Lipid 1996 panelon 4 Cholesterol [Mass/Vol] 167 mg/dL Normal 150-200 [facility] Comment on above: Performed By: #### C BCA, THYR, CMP, , 2132-07 #### [facility] ([id number]) [address], [address] [place] [address] Cholesterol in HDL [Mass/Vol] 45 mg/dL Normal >39 [facility] Comment on above: Result Comment: HDL <40 mg/dL - High Risk HDL > or = 40mg/dL- Desirable HDL >60 mg/dL - Negative Risk Performed By: #### C BCA, THYR, CMP, 44151-2, 2132-07 #### [facility] ([id number]) [address], [address] [place] [address] Cholesterol in LDL [Mass/Vol] 105 mg/dL Normal <130 [facility] Comment on above: Result Comment: LDL <100 mg/dL - Desirable LDL >160 mg/dL - High Risk Performed By: #### C BCA, THYR, CMP, , 2132-07 #### [facility] ([id number]) [address], [address] [place] [address] Cholesterol in VLDL [Mass/Vol] 17 mg/dL Normal 0-30 [facility] Comment on above: Performed By: #### C BCA, THYR, CMP, , 2132-07 #### [facility] ([id number]) [address], [address] [place] [address] CHOLESTEROL:HDL 3.7 Normal 1.0-5.0 [facility] Comment on above: Performed By: #### C BCA, THYR, CMP, , 2132-07 #### [facility] ([id number]) [address], [address] [place] [address] Triglyceride [Mass/Vol] 86 mg/dL Normal 27-150 [facility] Comment on above: Performed By: #### C BCA, THYR, [facility], 88935-5, 2132-07 #### [facility] ([id number]) [address], [address] [place] [address] THYROID PROFILEon 12-26-2023 Free T4 [Mass/Vol] 0.76 ng/dL Normal 0.61-1.60 [facility] Comment on above: Performed By: #### C BCA, THYR, [facility], 25023-3, 2132-07 #### [facility] ([id number]) [address], [address] [place] [address] TSH 4.47 uIU/mL Normal 0.49-4.67 [facility] Comment on above: Performed By: #### C BCA, THYR, [facility], 91721-2, 2132-07 #### [facility] ([id number]) [address], [address] [place] [address] VITAMIN B12on 12-26-2023 Cobalamin (Vitamin B12) [Mass/Vol] 226 pg/mL Normal 180-914 [facility] Comment on above: Performed By: #### C BCA, THYR, [facility], 92409-1, 2132-07 #### [facility] ([id number]) [address], [address] [place] [address] XR HIP LT 2-3 VIEWS W OR [...] Medrano MD on 12/26/2023 4:37 PM Normal [facility] SARS-CoV-2 (COVID-19) RNA NA A+probe Ql (Resp)on 06-19-2022 SARS-CoV-2 (COVID-19) RNA ANDI+probe Ql (Unsp spec) Negative [facility] Other Covid-19 PCR ([facility])on 07-19 SARS-CoV-2 (COVID-19) RNA ANDI+probe Ql (Unsp spec) Not detected Normal NOT DETECTED [facility] Comment on above: Result Comment: This test is not yet approved or cleared by the [place] FDA. When there are no FDA-approved or cleared tests available, and other criteria are met, FDA can make tests available under an emergency access mechanism called an Emergency Use Authorization (EUA). The EUA for this test is supported by the [place] of Health and Human Service's (HHS's) declaration [...] consistent with SARS-CoV-2. Performed By: #### C [facility] #### [facility] [address] [place] [address] Dr. Mil Novoa Vital Signs Date Time Vital Sign Value Performing Clinician Facility 10-03-2024 13:03-0500 Body height 172.72 cm PHYSICIAN NO [facility] 10-03-2024 13:03-0500 Body mass index (BMI) [Ratio] 34.7 kg/m2 PHYSICIAN NO [facility] 10-03-2024 13:03-0500 Body temperature 98.5 [degF] PHYSICIAN NO [facility] 10-03-2024 13:03-0500 Body weight 103.64 kg PHYSICIAN NO [facility] 10-03-2024 13:03-0500 Diastolic blood pressure 72 mm[Hg] PHYSICIAN NO [facility] 10-03-2024 13:03-0500 Heart rate 73 /min PHYSICIAN NO [facility] 10-03-2024 13:03-0500 Respiratory rate 18 /min PHYSICIAN NO [facility] 10-03-2024 13:03-0500 SaO2% (BldA) [Mass fraction] 96 % PHYSICIAN NO [facility] 10-03-2024 13:03-0500 Systolic blood pressure 110 mm[Hg] PHYSICIAN NO [facility] 06-19-2022 18:40-0400 Body height 172.72 cm Elizabeth Andino Other [facility] Other 06-19-2022 18:40-0400 Body mass index (BMI) [Ratio] 32.69 kg/m2 Elizabeth Thu Other [facility] Other 06-19-2022 18:40-0400 Body temperature 99.4 [degF] Elizabeth Thu Other [facility] Other 06-19-2022 18:40-0400 Body weight 97.52 kg Elizabeth Condemond Other [facility] Other 06-19-2022 18:40-0400 Respiratory rate 18 /min Elizabeth Thu Other [facility] Other 06-19-2022 18:40-0400 SaO2% (BldA) [Mass fraction] 97 % Elizabeth Thu Other [employer] Other Encounters Encounter Date Encounter Type Care Provider Facility Start: 11-30-2024 End: 12-01-2024 Telephone encounter [facility] Start: 11-05-2024 End: 11-05-2024 ambulatory PHYSICIAN NO FAMILY Facility:[facility] Start: 10-03-2024 End: 10-03-2024 Patient encounter procedure PHYSICIAN NO [facility] Work Phone: Start: 10-03-2024 End: 10-03-2024 ambulatory PHYSICIAN NO [facility] Work Phone: Start: 10-03-2024 End: 10-03-2024 Patient encounter procedure PHYSICIAN NO [facility] Work Phone: Start: 03-26-2024 End: 03-26-2024 Evaluation and management of inpatient MIKAELASebastian IBARRA [facility] Start: 03-25-2024 End: 03-26-2024 [facility] Start: 03-17-2024 End: 04-17-2024 ambulatory [facility] Start: 03-10-2024 End: 03-10-2024 ambulatory EDMOND James SMITH [facility] Start: 02-23-2024 End: 03-17-2024 ambulatory [facility] Start: 02-17-2024 End: 02-17-2024 ambulatory [facility] Start: 02-10-2024 End: 02-10-2024 ambulatory [facility] Start: 02-03-2024 End: 02-03-2024 Emergency department patient visit [facility] James [facility] Start: 01-20-2024 End: 01-20-2024 Emergency department patient visit [facility] Start: 01-19-2024 End: 01-20-2024 Emergency department patient visit MELINDA CARBAJAL [facility] Start: 01-08-2024 End: 01-08-2024 ambulatory [facility] Start: 01-07-2024 End: 01-07-2024 ambulatory DENAE GUZMNA [facility] Start: 12-26-2023 End: 12-26-2023 ambulatory MEAGAN ANTHONYSLER [facility] Start: 12-24-2023 End: 12-24-2023 [facility] Start: 12-13-2023 End: 12-13-2023 ambulatory DAVIS HAYES [facility] Start: 12-12-2023 End: 12-12-2023 ambulatory PAWAN SKY [facility] Start: 12-01-2023 End: 12-01-2023 ambulatory REX CONTRERAS [facility] Start: 11-28-2023 End: 11-28-2023 ambulatory PAWAN SKY [facility] Start: 10-21-2023 End: 10-21-2023 ambulatory Mariely Hitchcock Other [employer] Other Start: 10-21-2023 Patient encounter procedure Mariely Hitchcock [facility] Start: 06-19-2022 End: 06-19-2022 ambulatory Elizabeth Andino Other [employer] Other Start: 06-19-2022 Office outpatient visit 15 minutes Elizabeth Andino [facility] Start: 08-06-2021 End: 08-06-[address] PEARL FAJARDO Facility:[facility] Procedures Date Procedure Procedure Detail Performing Clinician Start: 10-03-2024 Quick Strep (POC) PHYSI EMELIA NO FAMILY Start: 10-03-2024 Plain chest X-ray PHYSI EMELIA NO FAMILY Start: 02-10-2024 Mammography Graciela agrawal SOFTWARE ASSET MANAGEMENT ANALYST Start: 12-24-2023 Adult depression scr eening assessment Graciela Gautam SOFTWARE ASSET MANAGEMENT ANALYST Start: 04-30-2023 Microscopic observat ion [Identifier] in Cervix by Cyto stain Graciela Gautam SOFTWARE ASSET MANAGEMENT ANALYST Start: 02-22-2020 Colonoscopy Graciela agrawal CMA Plan of Treatment Date Care Activity Detail Author Start: 04-30-2026 Screening for malign ant neoplasm of cervix Pap Smear [facility] Start: 05-12-2025 Adult BMI Screening Adult BMI Screen ing [facility] Start: 05-12-2025 Tobacco Screening Tobacco Screening [facility] Start: 02-21-2025 Screening for malign ant neoplasm of colon Colonoscopy [facility] Start: 02-09-2025 Screening for malign ant neoplasm of breast Mammogram [facility] Start: 12-24-2024 Depression Screening Depression Scre ening [facility] Start: 07-18-2024 COVID-19 Vaccine ( season) COVID-19 Vaccine () [facility] Start: 07-18-2024 Influenza vaccination Influenza Vacc ine [facility] Start: 04-30-2024 Adult BMI Follow Up Plan Adult BMI Follow Up Plan [facility] Start: 1997 DTaP,Tdap and Td Vaccines (1 - Tdap) DTaP,Tdap and Td Vaccines ( - Tdap) [facility] Payers Date Payer Category Payer Self-pay 2022 [employer] [facility] [id number] 1978 Unknown [id number] 2.840.1.664460.3.57 9.2.593 1978 Unknown [id number] 2.16840.1.213908.3.57 9.2.1286 1978 Unknown [id number] 2.16.840.1.838184.3.57 9.2.1286 1978 Unknown [id number] 2.16840.1.332521.3.57 9.2.1285 1978 Unknown [id number] 2.16.840.1.776547.3.57 9.2.1285 1978 Unknown [id number] 2.16.840.1.672487.3.57 9.2.1285 1978 Unknown [id number] 2.16.840.1.566416.3.57 9.2.1285 1978 Unknown [id number] 2.16.840.1.375410.3.57 9.2.1285 1978 Unknown [id number] 2.16.840.1.642467.3.57 9.2.1285 1978 Unknown [id number] 2.840.1.129717.3.57 9.2.1285 1978 Unknown [id number] 2.840.1.817555.3.57 9.2.1285 1978 Unknown [id number] 2.840.1.846845.3.57 9.2.1285 1978 Unknown [id number] 2.840.1.825945.3.57 9.2.1285 1978 Unknown [id number] 2.840.1.106906.3.57 9.2.1285 1978 Unknown [id number] 2.16840.1.001090.3.57 9.2.1285 1978 Unknown [id number] 2.840.1.035436.3.57 9.2.1285 1978 Unknown [id number] 2.16.840.1.708966.3.57 9.2.1285 1978 Unknown [id number] 2.16840.1.241848.3.57 9.2.1285 1978 Unknown [id number] 2.16.840.1.942494.3.57 9.2.1285 1978 Unknown [id number] 2.16.840.1.533484.3.57 9.2.1286 1978 Unknown [id number] 2.16.840.1.843086.3.57 9.2.1286 1978 Unknown [id number] 2.16.840.1.814298.3.57 9.2.1286 1978 Unknown [id number] 2.16.840.1.626930.3.57 9.2.1286 1978 Unknown [id number] 2.16.840.1.863274.3.57 9.2.1286 1978 Unknown [id number] 2.16.840.1.701079.3.57 9.2.1286 1978 Unknown [id number] 2.16.840.1.725464.3.57 9.2.1286 1978 Unknown [id number] 2.16.840.1.089136.3.57 9.2.1286 1978 Unknown [id number] 2.16.840.1.296242.3.57 9.2.1286 1978 Unknown [id number] 2.16.840.1.960135.3.57 9.2.1286 1959 Unknown [id number] 1959 Unknown [id number] Unknown [id number] 2.16.840.1.530092.3.57 9.2.531 Unknown [id number] 2.16.840.1.831797.3.57 9.2.531 Social History Date Type Detail Facility Unknown if ever smoked [employer] Other Start: 12-28-2020 End: 05-12-[facility] Start: 07-[facility]-2018 End: 04-18-2023 Tobacco smoking status MNIS Ex-smoker (finding) [facility] Start: 10-04-2024 Sex Patient sex unknown (finding) [facility] Start: 1980 Sex Assigned At Female [facility] History of tobacco use Current smoker [facility] Start: 04-18-2023 Tobacco use and exposure Smokeless tobacco non-user [facility] Start: 05-12-2024 Alcoholic beverage intake Ex-drinker (finding) [facility] Start: 12-28-2020 End: 05-12-2024 History of Social function [facility] How hard is it for y ou to pay for the very basics like food, housing, medical care, and heating Not hard at all [facility] Start: 04-18-2023 Tobacco Comment quit 25 years ago [facility] Start: 06-22-2015 Sex Female (finding) [facility] Start: 10-11-2018 Gender identity Identifies as female gender (finding) [facility] Start: 06-08-2021 Sexual orientation Heterosexual (finding) [facility] Note 11-30-2024 Telephone Encounter - Graciela Gautam CMA - 11/30/2024 2:18 PM ESTTelephone Encounter - LAKEISHA Molina - 11/30/2024 2:18 PM EST Note Date & Type Note Facility 11-30-2024 Miscellaneous Notes Formattin g of this note might be different from the original. Patient called stating that she is needing to come in and be seen due to her being sick. Expressed that she has been to urgent care many times as well as the ER but would like to get in and see PCP. I offered her soonest which would be 12/01. Cora stated she is unable to come in unless it is on 12/06 or 12/08. Informed patient of full schedule and the other providers being Out of Office. Informed her of Same Day appointments she could try and make on those two days. Cora was verbally upset and stated she was looking to be looking for a new PCP. Please advise? Are there any sick appointments for those days, that she could call that day ? Patient was offered same day. Did not want to call back next week. documented in this encounter [facility] Telephone encounter Note 11-30-2024 Telephone Encounter - Graciela Gautam CMA - 11/30/2024 2:18 PM EST Note Date & Type Note Facility 11-30-2024 Telephone encounter Note Patient called stating that she is needing to come in and be seen due to her being sick. Expressed that she has been to urgent care many times as well as the ER but would like to get in and see PCP. I offered her soonest which would be 12/01. Cora stated she is unable to come in unless it is on 12/06 or 12/08. Informed patient of full schedule and the other providers being Out of Office. Informed her of Same Day appointments she could try and make on those two days. Cora was verbally upset and stated she was looking to be looking for a new PCP. [facility] 11-30-2024 Telephone Encounter - LAKEISHA Molina - 11/30/2024 2:18 PM EST Note Date & Type Note Facility 11-30-2024 Telephone encounter Note Are there any sick appointments for those days, that she could call that day ? [facility] 11-30-2024 Telephone Encounter - Graciela Gautam CMA - 11/30/2024 2:18 PM EST Note Date & Type Note Facility 11-30-2024 Telephone encount er Note Patient was offered same day. Did not want to call back next week. [facility] 06-19-2022 Note Date & Type Note Facility 06-19-2022 Evaluation note Encounter Date Diagnosis Assessment Notes Jun, Sore throat (ICD-10 - J02.9) Jun, Viral upper respiratory illness (ICD-10 - J06.9) Drink plenty fluids, get plenty of rest. Take Tylenol or Motrin for aches pains or fevers. Follow-up with your family physician if no improvement in 2 to 3 days., Viral upper respiratory infection: adult home care material was printed [employer] Other Evaluation note Note Date & Type Note Facility Evaluation note No Information [employer] Other Evaluation note Note Date & Type Note Facility Evaluation note No assessment information [facility] Work Phone: History general Narrative - Reported Note Date & Type Note Facility History general Narrative - Reported Type Medical History back pain Medical History stomach ulcer Medical History diverticulitis Surgical History bladder surgery 1991 Surgical History D & C 1999 Surgical History tubes tied 2003 Hospitalization History see above Hospitalization History sinus infection [employer] Other Instructions Note Date & Type Note Facility Instructions Not on filedocumented in this en counter [facility] Summary Purpose Family History Relationship Condition Age at Onset Recorded Date/T mandeep mother Diabetes mellitus Unknown Advance Directives Advance Directive Response Recorded Date/ Time Advance Directives No December 1:10pm Chief Complaint and Reason for Visit Chief Complaint Admit Date cough x 3 weeks October 03, 2024 12:19pm R06.2 - Wheezing October 03, 2024 1:45pm Additional Source Comments INFORMATION SOURCE (unrecogn ized section and content) DATE CREATED AUTHOR 08/19/2021 [facility] DATE CREATED AUTHOR AUTHOR'S ORGANIZ ATION 03/12/2024 [facility] DATE CREATED AUTHOR AUTHOR'S ORGANIZ ATION 04/18/2024 [facility] DATE CREATED AUTHOR AUTHOR'S ORGANIZ ATION 11/08/2024 [facility] REASON FOR VISIT (unrecogniz ed section and content) RED EQUINOX, SORE THROAT, EX POSURE TO SONLEFT LEG, MASS KEEPS GETTING BIGGER AND SORE, SORE THROAT, MUCUS COMING UP Care Teams (unrecognized sec tion and content) Team Status: Active Member Role Status Dates PHYSICIAN NO FAMILY Primary Care Provider Active Team Status: Inactive Member Role Status Dates PHYSICIAN NO FAMILY Primary Care Provider Active Start: October 03, 2024 End: October 03, 2024 Alea Hurd APRN Attending Provider Active Start: October 03, 2024 End: October 03, 2024 Bonsai Tender Relationship Specialty Start Date End Date Meagan García APRN-BUSINESS DATA ANALYST [address], [place] [address] PCP - General Family Medicine 12/24/23 Goals (unrecognized section and content) Goals may [...] BE BASED ON THE PRIMARY CLINICAL RECORDS. [employer] provides no warranty or guarantee of the accuracy or completeness of information in this document.
== END 2025-01-04 15:47 | disposition home or self-care (01) ==
LOC: LAB 15:47
PROVIDERS: Visit Provider Internal Medicine
DX: R05.3 Chronic cough (principal)
CPT/HCPCS: 36415; 82785; 85025; 86615

== ENCOUNTER 2025-11-11 07:27 | Emergency (ER) | payer BC, SELFPAY ==
--- OUTSIDE RECORDS SUMMARY | 2025-04-27 11:30 | XMS_ITS ---
Author Organization [facility] in [place] Address [address] [place] [address] Care Team Providers Care Technology Development Intern Name Role Phone Meagan García CNP Primary Care Provider Tyrell Greer Unavailable [phone] REASON FOR VISIT 3m F/U - Asthma Encounters Encounter Location Date Provider Diagnosis Pulmonary Medicine [address] [address] 04/27/2025 Tyrell Castillo Plan Of Treatment No Information Progress Notes * Cora TRACEY MDOB:[birth year] (45 yo F)Acc No.[id number]:04/27/2025 UNLOCKED PROGRESS NOTE Follow Up Patient: Adelaide Cora JOY :?Tyrell Palmer, DODOB:1980???Age:44 Y ???Sex:FemaleDate:04/27/2025Phone:[phone]:[address] [place] [address] [address], [id number]:Meagan García CNP Subjective: * Chief Complaints: * 1 . 3m F/U - Asthma. * Medical History: Objective: * Vitals: Assessment: Plan: * Treatment: * * Electronic signature of Tyrell Castillo DO on 11/11/2025 at 07:47 AM ESTSign off status: PendingVisit Status:?R/S (Rescheduled) * Provider: Sebastian Castillo DO Date: 0 04/27/2025 Generated for Printing/Faxing/eTransmitting on:?11/11/2025 07:47 AM EST
[2025-11-11 07:31] VITALS: BP 130/79; PULSE 88; TEMP 37; O2SAT 97; BMI 35.0
--- OUTSIDE RECORDS SUMMARY | 2025-11-11 07:48 | XMS_ITS | Clinical Summary ---
Author Organization [facility] Address [address] [place] [address] Care Team Providers Care Second Steward Name Role Phone Unavailable Primary Care Provider Unavailabl e Allergies Active AllergyReactionsCriticalityNoted DateCommentsAcetaminophen-CodeineNausea Only04/03/2017CodeineGI tslhapxwqae13/25/2024 Family History Medical HistoryRelationNameCommentsHeart diseaseFatherLung diseaseFatherBreast cancerFather's SisterBreast cancerMaternal GrandmotherCancerMaternal Grandmother RelationNameStatusCommentsFatherFather's SisterMaternal Grandmother Social History Tobacco UseTypesPacks/DayYears UsedDateSmoking Tobacco: FormerCigarettes Smokeless Tobacco: Never Tobacco Cessation:Counseling Given: Not Answered Comments:(05/12/2024): Quit 25 years ago Alcohol UseStandard Drinks/WeekCommentsNot Asked0 (1 standard drink = 0.6 oz pure alcohol)CommentsUnknownSex and Gender InformationValueDate Recorded Sex Assigned at BirthNot on fileLegal IrdIoscak88/15/2023 8:15 PM EDTGender IdentityNot on fileSexual OrientationNot on file Last Filed Vital Signs Vital SignReadingTime TakenCommentsBlood Ikhbbiez270/8609 12:00 PM EDT Pulse--Temperature--Respiratory Rate--Oxygen Saturation--Inhaled Oxygen Concentration--Blnicp219 kg (230 lb)08/26/2018 12:00 PM WKIGhrhpl107.7 cm (5' 8 )08/26/2018 12:00 PM EDTBody Mass Index34.9710 12:00 PM EDT Plan of Treatment Not on file
--- OUTSIDE RECORDS SUMMARY | 2025-11-11 07:48 | XMS_ITS | Patient Health Record ---
Author Organization [facility] in [place] Address [address] [place] [address] Care Team Providers Care Natural Foods Clerk Name Role Phone Meagan García CNP Primary Care Provider Brittany padillasamanthabela Jonathan Tyrell Timothy [phone] Allergies Allergen (clinical drug ingredient) Drug/Non Drug Allergy documented on EMR Reaction Allergy Type Onset Date Status codeine Codeine nausea and vomiting Drug Allergy Active Results Component Value Reference Range Notes IMMUNOGLOBULIN E, TOTAL Reviewed date:01/11/2025 07:10:11 AM Interpretation: Performing Lab: Notes/Report: [facility] , Immunoglobulin E, Total 36 6-495 IU/mL Performed at: [address] [id number] Boiler Setter: Mallory Rodriguez MD, Phone: [phone] Performing Lab: see note - [facility] LBB. PERTUSSIS AB IGA/IGG/IGM Reviewed date:01/10/2025 12:59:25 PM Interpretation: Performing Lab: Notes/Report: CBC W/AUTO DIFF Reviewed date:01/10/2025 12:57:30 PM Interpretation: Performing Lab: Notes/Report: [facility], IMMUNOGLOBULIN (TOTAL) Reviewed date:01/10/2025 12:56:55 PM Interpretation: Performing Lab: Notes/Report: LAB TESTING Reviewed date:01/11/2025 07:10:14 AM Interpretation: Performing Lab: Notes/Report: [id number] Bordetella pertussis Antibodies, IgA, IgG, IgM [facility] ,Miscellaneous TestCOMMENT. Test Ordered: 102103 B pertussis IgG/M/A Ab B pertussis IgG Ab <0.95 index BN Reference Range: 0.00-0.94 Negative <0.95 Equivocal 0.95 - 1.04 Positive >1.04 B pertussis IgM Ab 1.0 [H ] index BN Reference Range: 0.0-0.9 Negative <1.0 Borderline 1.0 - 1.1 Positive >1.1 B pertussis IgA Ab <1.0 index BN Reference Range: 0.0-0.9 Negative <1.0 Borderline 1.0 - 1.1 Positive >1.1 Performed at: - [facility] [id number] Boiler Setter: Mallory Rodriguez MD, Phone: [phone] Performed at: [facility] [id number] Boiler Setter: Blayne Diego PhD, Phone: [phone] Performing Lab:see [facility] LBCBC AUTO DIFF Reviewed date:01/04/2025 04:26:56 PM Interpretation: Performing Lab: Notes/Report: [facility] ,White Blood Count6.44.0-11.0 10 3/uLRed Blood Count4.074.20-5.40 10 6/uL Owjehhwprf00.512.0-16.0 g/pOZkumjpkyxf33.336.0-48.0 %Mean Corpuscular Ttuzpv38.6 81.0-99.0 fLMean Corpuscular Jtatrmepwd43.226.7-34.0 pgMean Corpuscular HGB Conc 34.429.9-35.2 g/dLRed Cell Distribution Width13.111.0-15.0 %Platelet Qkdvj218 150-450 10 3/uLMean Platelet Volume9.19.5-13.5 fLNeutrophils Percent Auto57.7 43.0-75.0 %Lymphocytes Percent Auto25.320.5-60.0 %Monocytes Percent Auto7.91.7- 12.0 %Eosinophils Percent Auto8.10.9-7.0 %Basophils Percent Auto0.80.2-2.0 % Immature Granulocytes Pct Auto0.20.0-0.5 %Neutrophils Absolute Auto3.71.4-6.5 10 3/uLLymphocytes Absolute Auto1.61.2-3.8 10 3/uLMonocytes Absolute Auto0.50.3-0.8 10 3/uLEosinophils Absolute Auto0.50.0-0.7 10 3/uLBasophils Absolute Auto0.10.0- 0.1 10 3/uLImmature Granulocytes Abs Auto0.010.00-0.03 10 3/uLPerforming Lab:see noteML - [facility] Reason For Referral No Information Medications Medication SIG (Take, Route, Frequency, Duration) Notes Start Date End Date Status Nucala 100 MG/ML 3 mL Subcutaneous ActiveIbuprofen 200 MG1 tablet with food or milk as needed Orally Three times a day5ActiveMirena (52 MG) 20 MCG/DAYas directed Exdporvskbkl38/18/2025 ActiveAlbuterol Sulfate HFA 108 (90 Base) MCG/ACT 2 puffs as needed for SOB Inhalation Q4H; Duration: 90 days Dispense # 3 inhalers ActiveTrelegy Ellipta 200-62.5-25 MCG/ACT 1 puff Inhalation Once a day; Duration: 90 days Rinse after use ; Dispense # 3 inhalers ActiveTylenol 325 MG1 tablet as needed Orally every 6 hrs5Active Immunizations Vaccine Route Administration Date Status Comme nts SARS-COV-2 (COVID 19 Moderna - Booster 0.25mL) Unknown 10/30/2021 Administered Social History Tobacco Use: Social History Observation Description Date Details (start date - stop date) Former Smoker NA - NA Tobacco Control (Standard) Question Answer Notes Tobacco use: Former smoker How long has it been since you last smoked?Greater than 10 yearsAdditional Findings: Tobacco toe-cnqqCa-gqzwv cigarette smoker (1-9/day) Problems Problem Type SNOMED Code ICD Code Onset Dates Problem Status W/U Status Risk Notes Problem Uncomplicated severe persistent asthma (700652016) Severe persistent asthma, uncomplicated (J45.50) ActiveconfirmedProblemLong-term current use of inhaled steroid (431232834)half-way (current) use of inhaled steroids (Z79.51)ActiveconfirmedProblemEx-tobacco user (finding) (694772749)History of tobacco abuse (Z87.891)Activeconfirmed ProblemPeripheral eosinophilia (D72.19)Activeconfirmed Vital Signs Heart Rate 89 /min 05/04/2025 Xxzxshgwice46.0 degrees Ohyfpzutjx47/18/2025Respiratory Rate18 /min05/04/2025 Blood pressure kzwouqkur21 mm Hg05/04/20253860Xjqnqqpw90 %05/04/20251003Irdtjv78 in 05/04/2025lood pressure mm Hg05/04/20253592Zbphux185.8 lbs05/04/2025MI 35.7 kg/m205/04/2025 Procedures Procedure Date Ordered Date Performed Result Body Sit e Inhaler Teaching/Aerosol-performed 01/04/2025 01/04/2025 N /A Encounters Encounter Location Date Provider Diagnosis Pulmonary Medicine [facility] [address] [place] [address] 12/09/2024 [facility] Pulmonary Medicine [address] [place] [address]/10/2025 [facility] [address] [place] [address] 02/[facility] [address] [place] [address] [address] [place] [address]/07/2025[facility] [address] [place] [address]/[facility] R05.3 ; Peripheral eosinophilia D72.19 and History of tobacco abuse Z87.891Pulmonary Medicine [address] [place] [address]/09/2025[facility] Peripheral eosinophilia D72.19 ; Severe persistent asthma, uncomplicated J45.50 ; Pertussis A37.90 and History of tobacco abuse Z87.891Pulmonary Medicine [address] [place] [address]/[facility] D72.19 ; Severe persistent asthma, uncomplicated J45.50 ; History of tobacco abuse Z87.891 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 Will begin looking into anti-IL5 therapy. 01/25/2025Severe persistent asthma, uncomplicated (ICD-10 - J45.50) Patient clinically has severe persistent asthma. She responded well to Trelegy 200 with prednisone,but after prednisone was tapered off, symptoms returned. They aren't as severe as before (? Pertussis treated with Z-Jeovanny), but she still has HORAN and the dry cough. On examination, breath sounds remain diminished with expiratory wheeze/squeak - with the forced exhalation, she develops a mild coughing paroxysm. Do not feel she would be able to complete PFT still at this point. Discussed biologic therapy as she remains symptomatic despite Trelegy 200. Continues to have elevated eosinophils, so would target IL-5 therapy such as Nucala or Fasenra. Patient was counseled that they are injections - she voiced she is okay with that. Initial paperwork was signed in the office. Unclear if it will be covered; PFT may be required regardless before starting therapy depending on her insurance. 03/07/2025Severe persistent asthma, uncomplicated (ICD-10 - J45.50)Patient presents for her initial Nucala Injection. [facility] home. Patient was provided education while using the Nucala Demonstration Auto-Injector.All questions and concerns answered with patient. Patient elected to proceed with injection. Vitalsobtained. Patient requesting Nucala to be given in the Right Upper Arm. Area was cleaned with Alcohol and allowed enough time to dry. The skin was pinched between the thumb and index finger (around an inch and a half apart) and held in that position until the medication was fully administered from the auto-injector. Patient was given Nucala 100 mg/mL Prefilled Pen of Nucala SQ in the Right upper Arm. Band- aid was placed on the patient's arm. Patient tolerated the procedure without difficulty. Patient was held for the appropriate time. No adverse reactions were noted. Post Injection Vitals taken. [facility]: 3324-2738-34. Lot#[id number]. Exp: MAY 2027. James Guzman, DESHAWN05/04/2025Peripheral eosinophilia (ICD-10 - D72.19) Eosinophils: -01/04/2025: 8.1% / 500 -12/08/2024: 10% / 700 Excellent response to Nucala. Continue it for now. 01/04/2025hronic cough (ICD-10 - R05.3) Approximately 4 months duration of a chronic cough which is barky and mainly dry, attributed by dyspnea and wheezing. Her description of the cough is very suspicious for pertussis. She has ongoing wheezing may indicate underlying asthma previously undiagnosed. There may be some sort of allergic or i nflammatory component as her eosinophils were elevated at 700. Steroids seem to have had the most benefit, but she still remained symptomatic. The benefit wore off as soon as the prescription was completed. Albuterol was less beneficial, and now has very little improvement - her overuse has likely led to tachyphylaxis. I recommended treating her aggressively as that she has a severe asthma exacerbation. Recommended aprednisone taper, more prolonged over 9 days post to 5 or 6. Additionally, will add on Trelegy 200,1 puff once daily. Inhaler demonstration was performed with the patient. Appropriate technique was shree lim. Proper timing for administration was reviewed. Counseled on rinsing after steroid-containing inhalers. Inhaler samples were provided. She was advised to back down on albuterol if possible, and avoid using albuterol within 2-4 hours of Trelegy to avoid a pharmacodynamic interaction between albuterol and vilanterol in Trelegy. Additionally, recommend ordering pertussis antibodies to evaluate if she had exposure. Even though it has been 4 months out, we will give her a Z-Jeovanny just in case. Additionally, there are some anti-inflammatory properties a Z-Jeovanny which may help with any airway inflammation. Also recheck CBC to see the eosinophil level, and also IgE. She will eventually require PFT, but I do not believe she would not be able to do them up to ATS standards in her current state. She will return in proximately 3 weeks to evaluate her response and to review labs. 01/04/2025Peripheral eosinophilia (ICD-10 - D72.19) Eosinophils: -12/08/2024: 10% / 700 Elevation of eosinophil levels. 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 Rechecking CBC 01/04/2025History of tobacco abuse (ICD-10 - Z87.891) Quit many years ago. Will not meet current LDCT screening criteria. 05/04/2025Severe persistent asthma, uncomplicated (ICD-10 - J45.50) Doing much better since starting Nucala on top of Trelegy 200. Voices no issues with injection. Decreased albuterol use. She is happier with her breathing. Will see how she responds after longer duration on Nucala - F/U 6 months. Will discuss ordering PFT at that time. 05/04/2025History of tobacco abuse (ICD-10 - Z87.891) Quit many years ago. Will not meet current LDCT screening criteria. 01/25/2025Pertussis (ICD-10 - A37.90) IgM was borderline. With her barky cough, clinically suspect she had active Pertussis. She was treated prophylactically with Z-Jeovanny, so if she had active Pertussis, it should have been treated. 01/25/2025History of tobacco abuse (ICD-10 - Z87.891) Quit many years ago. Will not meet current LDCT screening criteria. 05/04/2025Long term (current) use of inhaled steroids (ICD-10 - Z79.51) Patient was counseled to rinse & gargle with water after inhaled corticosteroid use. 01/25/20255707Djvnk03/18/2025Other Plan Of Treatment No Information Insurance Providers Payer Name Payer Address Payer Phone Subscriber Number Group Number Insured Name Patient Relationship to Insured Coverage Start Date Coverage End Date [employer] [address] [place] [address] [id number] Edgar Proctor - patient is the insured Medications Administered Medication Instructions Date of Administration Dosage Notes Nucala 5100 mgPatient brought the medication with her to the office today. Medication was shipped from the speciality pharmacy.James Guzman 03/07/2025 05:04:28 PM EDT > Medical (General) History Medical History History ICD Code Peripheral eosinophilia D72.19 History of tobacco abuse Z87.891 Severe persistent asthma, uncomplicated J45.50 Pertussis A37.90 Surgical History Surgery Date(Month/Year) back surgery tubal ligationdilatation and curettagetonsillectomybladder surgery
[2025-11-11] MEDS: ONDANSETRON 4 MG RAPDIS TABLET SL (07:49)
--- NOTE | 2025-11-11 08:06 | XR_ITS ---
[place] [id number] Patient Name: IVY TRACEY MRN: [id number] date: 1980 Sex: F Assigned Patient Location: ER Current Patient Location: Accession/Order Number: [id number] Exam Date: 11/11/2025 08:15 Report Date: 11/11/2025 08:48 At the request of: JEANNETTE REYES DO Procedure: XR chest 2V XR chest 2V 11/11/2025 8:24 AM SIGNS AND SYMPTOMS: ^cough, r/o PNA PROTOCOL: Frontal and lateral radiographs of the chest COMPARISON: 12/08/2024 FINDINGS: The trachea is midline. The heart and mediastinal structures are within normal limits. The lung parenchyma is clear. The bony thorax is intact. Degenerative changes are noted in the thoracic spine. XR/XR chest 2V IMPRESSION: No acute cardiopulmonary pathology. Impression dictated by: Kayode Bhakta M.D. 11/11/2025 8:48 AM Dictation Location: [place] [address] Electronically authenticated by: [id number] Date: 11/11/2025 08:48
[2025-11-11 08:27] LABS: SARS-CoV-2 Ag NEGATIVE (NEGATIVE)
[2025-11-11 08:30] VITALS: BP 128/78; PULSE 67; O2SAT 98
--- NOTE | 2025-11-11 08:33 | ED.GENADUL1 ---
HPI HPI - General Adult General Chief complaint: Nausea/Vomiting/Diarrhea Stated complaint: vomiting, diarrhea Time Seen by Provider: 11/11/25 07:29 Source: patient Mode of arrival: walk-in Limitations: no limitations History of Present Illness HPI narrative: Patient is a 45-year-old female presenting to the emergency department for evaluation of URI. Patient has been ill for the last 5 days. She has been having cough, congestion, myalgias, fatigue, nausea, vomiting for the last 5 days. She states she is a history of asthma, has been using her albuterol inhalers at home. She denies any chest pain or shortness of breath. She denies any current abdominal pain. No urinary symptoms. Related Data Home Medications ?Medication ?Instructions ?Recorded ?Confirmed albuterol sulfate 90 mcg/actuation 2 puff inhalation Q6H PRN 11/17/24 12/08/24 aerosol inhaler shortness of breath or wheezing fluticasone fur. 200 mcg-umeclid 1 inh inhalation DAILY 11/11/25 11/11/25 62.5 mcg-vilant 25 mcg inhalat.powder (Trelegy Ellipta) Previous Rx's ?Medication ?Instructions ?Recorded albuterol sulfate 90 mcg/actuation 1 inh inhalation Q6H PRN shortness 12/08/24 aerosol inhaler of breath or wheezing #8.5 grams Allergies Allergy/AdvReac Type Severity Reaction Status Date / Time codeine AdvReac Severe Nausea Verified 11/11/25 07:31 Opioid HPI Opioid Management Most Recent Opioid Data: Last Pain Scale 7 Today, 07:31 Review of Systems ROS Status of ROS 10 or more systems reviewed and unremarkable except as noted in history and below PFSH PFS Social History Little interest or pleasure in doing things: not at all Feeling down, depressed, or hopeless: not at all Exam Narrative Exam Narrative: CONSTITUTIONAL: Appears ill but nontoxic, answering questions and following commands appropriately SKIN: Was warm and dry. EYES: Sclerae white. No evidence of exudates. EARS, NOSE, THROAT: Moist oral mucosa. Posterior oropharynx is clear without erythema, tonsil enlargement or exudates. 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 Uvula midline. No rhinorrhea. RESPIRATORY: Clear to auscultation bilaterally, no wheezes, crackles, or stridor, no use of accessory muscles CARDIOVASCULAR: Normal rate and regular rhythm. There is no S3, S4, murmur, rub. GASTROINTESTINAL: Abdomen is soft, nontender, and nondistended. MUSCULOSKELETAL: No peripheral edema. NEUROLOGIC: Patient is awake and alert. Facies were symmetrical. Constitutional Vital Signs, click to edit/add: Last Vital Signs Temp 98.6 F 11/11/25 07:31 Pulse 88 11/11/25 07:31 Resp 20 11/11/25 07:31 BP 130/79 11/11/25 07:31 Pulse Ox 97 11/11/25 07:31 Course Vital Signs Vital signs: Vital Signs Temperature 98.6 F 11/11/25 07:31 Pulse Rate 88 11/11/25 07:31 Respiratory Rate 20 11/11/25 07:31 Blood Pressure 130/79 11/11/25 07:31 Pulse Oximetry 97 11/11/25 07:31 Temperature 98.6 F 11/11/25 07:31 Pulse Rate 88 11/11/25 07:31 Respiratory Rate 20 11/11/25 07:31 Blood Pressure 130/79 11/11/25 07:31 Pulse Oximetry 97 11/11/25 07:31 Medical Decision Making MDM Narrative Medical decision making narrative: Patient is a 45-year-old female presenting to the emergency department with flulike symptoms x 5 days. Her vital signs on arrival are within normal limits. She is afebrile and hemodynamically stable. She is saturating 97% on room air with clear breath sounds bilaterally. She is in no respiratory distress, speaking in full sentences. Differential diagnose includes viral URI, and less likely pneumonia. No wheezing or respiratory distress to suggest COPD exacerbation or bronchitis. COVID/flu swabs were obtained. Chest x-ray was ordered. She was given oral guaifenesin and Zofran for symptomatic treatment. Chest x-ray independently reviewed/interpreted by myself demonstrated no acute cardiopulmonary process. COVID/flu swabs negative. I do believe the patient is stable for discharge. Patient's presentation is most likely consistent with viral syndrome. They were instructed to follow up with her PCP as needed. Return precautions were given including any new or worsening symptoms. Patient understands and agrees to the plan. FINAL IMPRESSION: #Acute viral syndrome DISPOSITION: Discharged home CONDITION: Good Lab Data Lab results reviewed: Yes I reviewed the patient's lab results Labs: Lab Results 11/11/25 Range/Units 07:42 Influenza Type A Ag Negative Influenza Type B Ag Negative SARS-CoV-2 Ag (CV2AG) Negative (NEGATIVE) Imaging Data Chest x-ray: Attestation: I personally reviewed and interpreted this imaging study as follows: Discharge Plan Discharge Chief Complaint: Nausea/Vomiting/Diarrhea Clinical Impression: URI (upper respiratory infection) Patient Disposition: Home, Self-Care Time of Disposition Decision: 08:28 Condition: Good Mode of Transportation: Private Vehicle Prescriptions / Home Meds: No Action albuterol sulfate 90 mcg/actuation HFA aerosol inhaler 2 puff INHALATION Q6H PRN (Reason: shortness of breath or wheezing) Trelegy Ellipta 200-62.5-25 mcg blister with device 1 inh INHALATION DAILY albuterol sulfate 90 mcg/actuation HFA aerosol inhaler 1 inh inhalation Q6H PRN (Reason: shortness of breath or wheezing) Qty: 8.5 0RF Print Language: Estonian Instructions: Upper Respiratory Infection (ED) Referrals: [facility] [Primary Care Provider, Unknown] - 1 week
== END 2025-11-11 08:30 | disposition home or self-care (01) ==
PROVIDERS: Emergency Provider Student in an Organized Health Care Education/Training Program
DX: J45.909 Unspecified asthma, uncomplicated (principal); J06.9 Acute upper respiratory infection, unspecified
CPT/HCPCS: 71046; 87804; 87811; 99283; Q0162